=== PATIENT | female | born 1970 | race Caucasian/White ===

== ENCOUNTER 2016-08-29 07:45 | Emergency (ER) | payer OTHER ==
[2016-08-29 07:56] VITALS: BP 127/73
--- NOTE | 2016-08-29 08:20 | UC ---
Respiratory Complaint HPI - HPI Summary HPI Summary: Cough for 6 days; sinus congestion. Cough is frequent and harsh to point that feels as if she can "pass-out". sinus pain/pressure since wknd. no fever. no wheezing. used saline rinse this morning. has had sinus infections in past and feels the same. Has had to use inhaler in past for similar sx. no h/o asthma. - History of Current Complaint Chief Complaint: UCRespiratory Stated Complaint: SINUS,COUGH Time Seen by Provider: 08/29/16 08:13 Hx Last Menstrual Period: 08/15/16 - Allergies/Home Medications Allergies/Adverse Reactions: Allergies Allergy/AdvReac Type Severity Reaction Status Date / Time Penicillins Allergy Intermediate Hives Verified 08/29/16 07:57 PMH/Surg Hx/FS Hx/Imm Hx Previously Healthy: Yes - Surgical History Surgical History: Yes Surgery Procedure, Year, and Place: - Family History Known Family History: Negative: Cardiac Disease, Diabetes, Respiratory Disease Family History: no know family history of early onset cardio-vascular disorders - Social History Alcohol Use: Occasionally Substance Use Type: None Smoking Status (MU): Never Smoked Tobacco - Immunization History Most Recent Influenza Vaccination: Not the season Review of Systems Constitutional: Fatigue Skin: Negative Eyes: Negative ENT: Ear Ache Respiratory: Cough Cardiovascular: Negative Gastrointestinal: Negative Genitourinary: Negative Motor: Negative Neurovascular: Negative Musculoskeletal: Negative Neurological: Negative Psychological: Negative All Other Systems Reviewed And Are Negative: Yes Physical Exam Triage Information Reviewed: Yes Appearance: Well-Appearing, No Pain Distress, Well-Nourished - mild cough. Vital Signs: Initial Vital Signs Temp 98.3 F 08/29/16 07:49 Pulse 70 08/29/16 07:49 Resp 18 08/29/16 07:49 BP 127/73 08/29/16 07:49 Pulse Ox 100 08/29/16 07:49 Vital Signs Reviewed: Yes Eye Exam: Normal ENT: Positive: Hearing grossly normal, Pharynx normal, TMs normal, Other: - + b/ l maxillary and frontal tenderness. Negative: Tonsillar swelling, Tonsillar exudate Dental Exam: Normal Neck exam: Normal Neck: Positive: Supple, Nontender, No Lymphadenopathy Respiratory Exam: Normal Respiratory: Positive: Lungs clear, No respiratory distress, No accessory muscle use, Decreased breath sounds - mild. Negative: Crackles, Rhonchi, Stridor, Wheezing Cardiovascular Exam: Normal Cardiovascular: Positive: RRR, No Murmur, Pulses Normal, Brisk Capillary Refill Abdomen Description: Positive: Nontender, Soft Musculoskeletal Exam: Normal Neurological Exam: Normal Psychological Exam: Normal Skin Exam: Normal UC Diagnostic Evaluation - Laboratory O2 Sat by Pulse Oximetry: 100 Respiratory Course/Dx - Course Course Of Treatment: She has taken zpack in past without difficulty. - Differential Dx/Diagnosis Differential Diagnosis/HQI/PQRI: Bronchitis, Lower Resp Infection, Sinusitis Provider Diagnoses: Sinusitis, mild bronchitis Discharge - Discharge Plan Condition: Stable Disposition: HOME Prescriptions: Albuterol HFA INHALER* [Ventolin HFA Inhaler*] 2 puff INH Q4H PRN #1 mdi PRN Reason: Cough Azithromyxin SKYLER (NF) [Z-Skyler (Zithromax) 250 mg tabs #6] 250 mg PO .ZPAK INSTRUCTIONS #6 tab Benzonatate CAP* [Tessalon CAP*] 100 mg PO TID #30 cap Patient Education Materials: Acute Bronchitis (ED), Sinusitis (ED) Referrals: Delphine Mendez MD [Primary Care Provider] - 4 Days Additional Instructions: Make sure to take a probiotic while on the antibiotic. continue using the saline rinse daily and you can follow it with flonase nasal spray.
== END 2016-08-29 08:31 | disposition home or self-care (01) ==
LOC: UCCORT 07:45
DX: J40 Bronchitis, not specified as acute or chronic (principal); J32.9 Chronic sinusitis, unspecified; Z88.0 Allergy status to penicillin
CPT/HCPCS: 99212; G0463

== ENCOUNTER 2017-06-13 08:13 | Emergency (ER) | payer OTHER ==
[2017-06-13 08:56] VITALS: BP 122/79
--- NOTE | 2017-06-13 09:04 | UC ---
Complaint Female HPI - HPI Summary HPI Summary: 47 yo female c/o 4-5 days urinary discomfort, freq /urg / dysuria. Pain today upper back. No fever / chills. Hx utei approx 2x / year. No rash. - History Of Current Complaint Chief Complaint: UCGU Stated Complaint: URINARY COMPLAINT Time Seen by Provider: 06/13/17 08:36 Hx Obtained From: Patient Hx Last Menstrual Period: early May - Allergies/Home Medications Allergies/Adverse Reactions: Allergies Allergy/AdvReac Type Severity Reaction Status Date / Time Penicillins Allergy Intermediate Hives Verified 08/29/16 07:57 PMH/Surg Hx/FS Hx/Imm Hx Previously Healthy: Yes - see hpi - Surgical History Surgical History: Yes Surgery Procedure, Year, and Place: ,breast biopsy clip - Family History Known Family History: Positive: None Negative: Cardiac Disease, Diabetes, Respiratory Disease Family History: no know family history of early onset cardio-vascular disorders - Social History Alcohol Use: Daily Alcohol Amount: 1 wine Substance Use Type: None Smoking Status (MU): Never Smoked Tobacco - Immunization History Most Recent Influenza Vaccination: Not the season Review of Systems Constitutional: Negative Skin: Negative Eyes: Negative ENT: Negative Respiratory: Negative Cardiovascular: Negative Gastrointestinal: Other - see hpi Genitourinary: Negative Motor: Negative Neurovascular: Negative Musculoskeletal: Negative Neurological: Negative Psychological: Negative Is Patient Immunocompromised?: Yes All Other Systems Reviewed And Are Negative: No Physical Exam Triage Information Reviewed: Yes Appearance: Well-Nourished Vital Signs: Initial Vital Signs Temp 98.8 F 06/13/17 08:51 Pulse 78 06/13/17 08:51 Resp 18 06/13/17 08:51 BP 122/79 06/13/17 08:51 Vital Signs Reviewed: Yes Eye Exam: Normal ENT Exam: Normal Neck exam: Normal Respiratory Exam: Normal Cardiovascular Exam: Normal Abdominal Exam: Normal - tender suprapubic and upper back bilat Musculoskeletal Exam: Normal Neurological Exam: Normal Psychological Exam: Normal Skin Exam: Normal Complaint Female Dx - Course Course Of Treatment: urine dip tr leuk 1+ est. sg 1.020. reivewed with pt. questions as posed answered to the best of my ability. declines pyridium script. rx diflucan request as needed vag yeast infection. f/u pcp per routine - Differential Dx/Diagnosis Provider Diagnoses: uti Discharge - Discharge Plan Condition: Stable Disposition: HOME Prescriptions: Ciprofloxacin HCl [Cipro 500 MG TAB] 500 mg PO BID #14 tab Fluconazole 150 MG (NF) [Diflucan 150 mg (NF)] 150 mg PO DAILY #2 tab Patient Education Materials: Urinary Tract Infection in Women (ED) Referrals: Melanie Thompson MD [Primary Care Provider] -
== END 2017-06-13 09:46 | disposition home or self-care (01) ==
LOC: UCCORT 08:13
DX: N39.0 Urinary tract infection, site not specified (principal); Z88.0 Allergy status to penicillin
CPT/HCPCS: 81003; 87086; 99211; G0463

== ENCOUNTER 2017-09-30 08:11 | Emergency (ER) | payer OTHER ==
[2017-09-30 08:49] VITALS: BP 111/67
--- NOTE | 2017-09-30 08:59 | UC ---
Complaint Female HPI - HPI Summary HPI Summary: dysuria x 4 days + frequency, burning , no fever, no chills, no flank pain - History Of Current Complaint Chief Complaint: UCGU Stated Complaint: URINARY Time Seen by Provider: 09/30/17 08:35 Hx Obtained From: Patient Hx Last Menstrual Period: 09/29/17 Onset/Duration: Gradual Onset, Lasting Days - 3, Still Present Timing: Constant Severity Initially: Moderate Severity Currently: Moderate Pain Intensity: 3 Character: Burning Aggravating Factor(s): Urination Alleviating Factor(s): Nothing Associated Signs And Symptoms: Negative: Fever, Back Pain, Vaginal Bleeding/ Discharge, Vaginal Discharge, Nausea, Vomiting(# Of Episodes =), Genital Swelling, Genital Blisters, Retained Foregin Body (Specify) Related Hx: Similar Episode/Dx as: - UTI - Allergies/Home Medications Allergies/Adverse Reactions: Allergies Allergy/AdvReac Type Severity Reaction Status Date / Time MS Penicillins [Penicillins] Allergy Intermediate Hives Verified 09/30/17 08:43 PMH/Surg Hx/FS Hx/Imm Hx Previously Healthy: Yes - Surgical History Surgical History: Yes Surgery Procedure, Year, and Place: ,breast biopsy clip - Family History Known Family History: Positive: None Negative: Cardiac Disease, Diabetes, Respiratory Disease Family History: no know family history of early onset cardio-vascular disorders - Social History Alcohol Use: Daily Alcohol Amount: 1 wine Substance Use Type: None Smoking Status (MU): Never Smoked Tobacco - Immunization History Most Recent Influenza Vaccination: Not the season Review of Systems Constitutional: Negative Skin: Negative Eyes: Negative ENT: Negative Respiratory: Negative Cardiovascular: Negative Gastrointestinal: Negative Genitourinary: Dysuria, Frequency, Urgency Motor: Negative Is Patient Immunocompromised?: No All Other Systems Reviewed And Are Negative: Yes Physical Exam Triage Information Reviewed: Yes Appearance: Well-Appearing, No Pain Distress, Well-Nourished Vital Signs: Initial Vital Signs Temp 99.3 F 09/30/17 08:44 Pulse 64 09/30/17 08:44 Resp 18 09/30/17 08:44 BP 111/67 09/30/17 08:44 Pulse Ox 100 09/30/17 08:44 Vital Signs Reviewed: Yes Eye Exam: Normal Eyes: Positive: Conjunctiva Clear ENT: Positive: Normal ENT inspection, Hearing grossly normal, Pharynx normal Neck exam: Normal Neck: Positive: Supple, Nontender, No Lymphadenopathy Respiratory: Positive: Chest non-tender, Lungs clear, Normal breath sounds Cardiovascular: Positive: RRR, No Murmur, Pulses Normal Abdomen Description: Positive: Nontender, Soft. Negative: CVA Tenderness (R), CVA Tenderness (L), Distended, Guarding Bowel Sounds: Positive: Present Skin Exam: Normal Complaint Female Dx - Differential Dx/Diagnosis Provider Diagnoses: UTI Discharge - Discharge Plan Condition: Stable Disposition: HOME Prescriptions: Sulfamethox/Trimethoprim DS* [Bactrim DS 800/160 TAB*] 1 tab PO BID #14 tab Patient Education Materials: Urinary Tract Infection in Women (DC) Referrals: Melanie Thompson MD [Primary Care Provider] - If Needed
== END 2017-09-30 09:15 | disposition home or self-care (01) ==
LOC: UCCORT 08:11
DX: N39.0 Urinary tract infection, site not specified (principal)
CPT/HCPCS: 81003; 87077; 87086; 87186; 99212; G0463

== ENCOUNTER 2018-07-31 07:14 | Emergency (ER) | payer OTHER ==
--- OUTSIDE RECORDS SUMMARY | 2018-07-31 07:24 | XMS REPORT ---
:1970 Author Organization [facility] Address [address] [place] [address] Care Team Providers Name Role Phone Rola Calvo Unavailable Unavailable PROBLEMS Type Condition ICD9-CM [id number] Onset Condition SNOMED Code Code Code Dates Status Problem Leiomyoma of D25.9 Active 04114402 uterus, unspecified Problem Family history of Z80.3 Active 112577137 malignant neoplasm of breast Problem Other abnormal and R92.8 Active 228380429 inconclusive findings on diagnostic imaging of breast Problem Other specified N93.8 Active 314388566 abnormal uterine and vaginal bleeding Problem Dysmenorrhea, N94.6 Active 003694373 unspecified Problem Family history of Z80.41 Active 563236766 malignant neoplasm of ovary Problem Family history of Z80.0 Active 917594394 malignant neoplasm of digestive organs Problem 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 70798121 stenosis of cervix uteri Problem 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 Problem Excessive and N92.0 Active 320758969 frequent menstruation with regular cycle Problem Unspecified N83.201 Active [id number] ovarian cyst, right side Problem Excessive and N92.0 Active 790283186 frequent menstruation Problem Inconclusive R92.2 Active 78503373 mammogram ALLERGIES Substance Reaction Event Type Date Status penicillin hives Drug Allergy Jun, Active ENCOUNTERS Encounter Location Date Diagnosis [facility] December, O[place] [id number] [facility] 103 December, OBGYN [place] [id number] [address] Jun, Excessive and frequent O[facility] [address] [place], menstruation with regular [place] [id number] cycle N92.0 ; Leiomyoma of uterus, unspecified D25.9 ; Family history of malignant neoplasm of breast Z80.3 ; Other abnormal and inconclusive findings on diagnostic imaging of breast R92.8 ; Genetic susceptibility to other malignant neoplasm Z15.09 ; Family history of malignant neoplasm of ovary Z80.41 and Family history of malignant neoplasm of digestive organs Z80.0 [facility] 103 Jun, Family history of malignant OBGYN [facility] neoplasm of breast Z80.3 [place], [place] [id number] and Displacement of intrauterine contraceptive device, initial encounter T83.32XA [facility] [address] [place], Apr, Excessive and frequent [facility] [place] [id number] menstruation with regular cycle N92.0 ; Dysmenorrhea, unspecified N94.6 and Stricture and stenosis of cervix uteri N88.2 [facility] 103 Apr, OBGYN [place] [id number] [facility] 103 Apr, Excessive and frequent [facility] menstruation with regular [place], [place] [address] cycle N92.0 ; Stricture and stenosis of cervix uteri N88.2 and Noninflammatory disorder of vagina, unspecified N89.9 [facility] 103 Mar, OBGYN [place], [place] [id number] [facility] 103 Mar, OBG[place] [id number] [facility] 103 Mar, [facility] with regular [place] [id number] cycle N92.0 ; Other abnormal and inconclusive findings on diagnostic imaging of breast R92.8 ; Leiomyoma of uterus, unspecified D25.9 ; Genetic susceptibility to other malignant neoplasm Z15.09 ; Family history of malignant neoplasm of ovary Z80.41 ; Family history of malignant neoplasm of breast Z80.3 and Family history of malignant neoplasm of digestive organs Z80.0 [place] [facility] 103 Feb, Excessive and frequent OBGYN [facility] menstruation with regular [place] [address] cycle N92.0 [place] [facility] 103 Feb, Excessive and frequent OBGYN [facility] menstruation with regular [place] [address] cycle N92.0 [place] [facility] 103 Feb, Excessive and frequent OBGYN [facility] menstruation with regular [place], [place] [address] cycle N92.0 [place] [facility] 103 Feb, Excessive and frequent OBGYN [facility] menstruation with regular [place], [place] [address] cycle N92.0 ; Leiomyoma of uterus, unspecified D25.9 and Other specified abnormal uterine and vaginal bleeding N93.8 [place] [facility] 103 Jan, OBGYN [place], [place] [id number] [place] [facility] 103 Jan, O[place]YN [place] [id number] [place] [facility] 103 Jan, Other abnormal and OBGYN [facility] inconclusive findings on [place], [place] [address] diagnostic imaging of breast R92.8 [place] [facility] 103 Jan, Excessive and frequent OBGYN [facility] menstruation N92.0 [place], [place] [address] [place] [facility] 103 Jan, Excessive and frequent OBGYN [facility] menstruation with regular [place] [address] cycle N92.0 ; Family history of malignant neoplasm of digestive organs Z80.0 ; Family history of malignant neoplasm of ovary Z80.41 ; Family history of malignant neoplasm of breast Z80.3 and Unspecified ovarian cyst, right side N83.201 [place] [facility] 103 Jan, Leiomyoma of uterus, OBGYN [facility] unspecified D25.9 ; Other [place] [id number] specified abnormal uterine and vaginal bleeding N93.8 ; Family history of malignant neoplasm of ovary Z80.41 and Excessive and frequent menstruation with regular cycle N92.0 [place] [facility] 103 December, Inconclusive mammogram [facility] R92.2 [place], [place] [id number] [place] [facility] 103 December, [facility] ([facility] [place], [place] [id number] (routine) without abnormal findings Z01.419 ; Encounter for screening mammogram for malignant neoplasm of breast Z12.31 ; Family history of malignant neoplasm of digestive organs Z80.0 ; Family history of malignant neoplasm of ovary Z80.41 ; Leiomyoma of uterus, unspecified D25.9 ; Excessive and frequent menstruation with regular cycle N92.0 ; Unspecified ovarian cyst, right side N83.201 ; Family history of malignant neoplasm of breast Z80.3 and Dysmenorrhea, unspecified N94.6 [facility] 103 December, Family history of malignant [facility] neoplasm of ovary Z80.41 [place], [place] [address] and Leiomyoma of uterus, unspecified D25.9 [facility] 103 Nov, [place] [id number] [facility] 103 Jun, [place] [id number] [place] [facility] 103 07 Jun, 2017 Family history of malignant [facility] neoplasm of ovary Z80.41 [place], [place] [id number] and Leiomyoma of uterus, unspecified D25.9 [place] [facility] 103 Mar, [facility] neoplasm of ovary Z80.41 [place], [place] [id number] and Leiomyoma of uterus, unspecified D25.9 [place] [facility] 103 Mar, Family history of malignant [facility] neoplasm of ovary Z80.41 ; [place], [place] [id number] Other specified abnormal uterine and vaginal bleeding N93.8 and Leiomyoma of uterus, unspecified D25.9 [facility] 103 24 Nov, 2016 Other abnormal and [facility] inconclusive findings on [place], [place] [id number] diagnostic imaging of breast R92.8 [facility] 103 13 Nov, 2016 [place] [address] [facility] 103 Nov, [facility] ([facility]) [place], [place] [id number] (routine) without abnormal findings Z01.419 ; Encounter for screening mammogram for malignant neoplasm of breast Z12.31 ; Frequency of micturition R35.0 ; Family history of malignant neoplasm of digestive organs Z80.0 ; Family history of malignant neoplasm of ovary Z80.41 and Leiomyoma of uterus, unspecified D25.9 [facility] 103 Nov, Family history of malignant [facility] neoplasm of ovary Z80.41 [place] [id number] [facility] 103 Nov, [facility] ([facility]) [place], [place] [id number] (routine) without abnormal findings Z01.419 ; Encounter for screening mammogram for malignant neoplasm of breast Z12.31 ; Family history of malignant neoplasm of digestive organs Z80.0 ; Family history of malignant neoplasm of ovary Z80.41 ; Dysmenorrhea, unspecified N94.6 and Other specified abnormal uterine and vaginal bleeding N93.8 [facility] 103 Nov, Family history of malignant [facility] neoplasm of ovary Z80.41 [place], [place] [address] [facility] 103 Oct, Encounter for screening [facility] mammogram for malignant [place], [place] [id number] neoplasm of breast Z12.31 [facility] 103 Apr, O[place] [id number] [facility] 103 Jan, Ovarian cyst NOS 620.2 OBGYN [place], [place] [id number] [place] [facility] 103 Jan, FM HX OVARY MALIGNANCY OBGYN [place] [address]36. and Ovarian cyst NOS [place], [place] [id number] 620.2 [place] [facility] 103 December, FM HX OVARY MALIGNANCY [facility] [place] [address] and Ovarian cyst NOS [place], [place] [address] 620.2 [place] [facility] 103 December, OBGYN [place], [place] [address] [place] [facility] 103 Nov, Menometrorrhagia 626.2 OBGYN [place] [address] [facility] 103 Nov, ROUTINE RECEIVABLES SPECIALIST EXAMINATION OBGYN [facility] V72.31 ; PAP SMEAR W/O RECEIVABLES SPECIALIST [place], [place] [id number] EXAM V76.2 and Ovarian cyst NOS 620.2 [facility] 103 Nov, FM HX OVARY MALIGNANCY OBGYN [place] [address] and Ovarian cyst NOS [place], [place] [address] 620.2 [facility] 103 Nov, OBG[place], [place] [id number] [facility] 103 Sep, Mammogram-Abnormal 793.80 OBGYN [place], [place] [address] [place] [facility] 103 May, Inconclusive mammogram OBGYN [facility] 793.82 [place], [place] [id number] [place] [facility] 103 May, FM HX OVARY MALIGNANCY OBGYN [place] [id number] [id number] [place] [facility] 103 May, FM HX OVARY MALIGNANCY OBGYN [place] [id number] [id number] [place] [facility] 103 Apr, OBG[place] [id number] [place] [facility] 103 Apr, OBGYN [place] [address] [place] [facility] 103 Nov, Breast Mass 611.72 OBGYN [place], [place] [address] [place] [facility] 103 Nov, OBGYN [place], [place] [address] [place] [facility] 103 Oct, ROUTINE RECEIVABLES SPECIALIST EXAMINATION OBGYN [facility] V72.31 ; [place], [place] [id number] vulvovaginitis 112.1 ; Dysmenorrhea 625.3 ; FAMILY HX-GI MALIGNANCY V16.0 ; Ovarian cyst NOS 620.2 ; Breast Mass 611.72 ; PAP SMEAR W/O RECEIVABLES SPECIALIST EXAM V76.2 ; FM HX OVARY MALIGNANCY V16.41 and VAGINAL DISCHARGE 623.5 [place] [facility] 103 Oct, FM HX OVARY MALIGNANCY OBGYN [facility] V16.41 [place], [place] [address] [place] [facility] 103 Oct, OBG[place] [id number] [facility] 103 Oct, [place], [place] [id number] [facility] 103 Oct, O[place], [place] [id number] [place] [facility] 103 Oct, Breast Mass 611.72 OBGYN [place] [address] [place] [facility] 103 Jun, OBG[place], [place] [id number] [place] [facility] 103 May, O[place], [place] [id number] [place] [facility] 103 May, FM HX OVARY MALIGNANCY OBGYN [place] 511736.41 [place], [place] [id number] [place] [facility] 103 May, Breast Mass 611.72 and FM OBGYN [facility] HX OVARY MALIGNANCY V16.41 [place], [place] [id number] [place] [facility] 103 May, FM HX OVARY MALIGNANCY OBGYN [facility] V16.41 [place], [place] [id number] [place] [facility] 103 Jan, OBG[place], [place] [id number] [place] [facility] 103 Nov, OBG[place] [id number] [place] [facility] 103 Nov, Ovarian cyst NOS 620.2 [facility]Y [place] [id number] V16.41 [place] [facility] 103 Nov, Ovarian cyst NOS 620.2 and OBGYN [facility] FM HX OVARY MALIGNANCY [place], [place] [address] V16.41 [place] [facility] 103 Oct, O[place] [id number] [place] [facility] 103 Oct, OBG[place], [place] [id number] [place] [facility] 103 Oct, OBGYN [place], [place] [id number] [place] [facility] 103 Sep, OBG[place], [place] [id number] [place] [facility] 103 Sep, ROUTINE RECEIVABLES SPECIALIST EXAMINATION OBGYN [facility] V72.31 ; FM HX OVARY [place], [place] [id number] MALIGNANCY V16.41 ; SCREEN MAMMOGRAM NEC V76.12 and Ovarian cyst NOS 620.2 [place] [facility] 103 Sep, FM HX OVARY MALIGNANCY OBGYN [facility] V16.41 and Ovarian cyst NOS [place], [place] [id number] 620.2 [facility] 103 Mar, FM HX OVARY MALIGNANCY OBGYN [facility] V16.41 ; FAMILY HX-GI [place], [place] [id number] MALIGNANCY V16.0 and Dysmenorrhea 625.3 [facility] 103 Mar, FM HX OVARY MALIGNANCY OBGYN [facility] V16.41 [place], [place] [id number] [facility] 103 Sep, OBGYN [place], [place] [id number] [facility] 103 Sep, ROUTINE RECEIVABLES SPECIALIST EXAMINATION OBGYN [facility] V72.31 ; FM HX OVARY [place], [place] [id number] MALIGNANCY V16.41 ; Candidal vulvovaginitis 112.1 and Dysmenorrhea 625.3 [facility] 103 Sep, FM HX OVARY MALIGNANCY OBG[facility] V16.41 [place], [place] [id number] [facility] 103 Sep, ROUTINE RECEIVABLES SPECIALIST EXAMINATION OBGYN [facility] V72.31 ; FM HX OVARY [place], [place] [id number] MALIGNANCY V16.41 and Menometrorrhagia 626.2 [facility] 103 Sep, FM HX OVARY MALIGNANCY OBGYN [facility] V16.41 and Menometrorrhagia [place], [place] [id number] 626.2 [facility] 103 December, FAMILY HX-GI MALIGNANCY OBGYN [facility] V16.0 ; FM HX OVARY [place], [place] [id number] MALIGNANCY V16.41 ; Dysmenorrhea 625.3 and Menometrorrhagia 626.2 [facility] 103 Oct, OBGYN [place], [place] [id number] [facility] 103 Oct, FAMILY HX-GI MALIGNANCY OBGYN [facility] V16.0 and FM HX OVARY [place], [place] [id number] MALIGNANCY V16.41 [facility] 103 Oct, FM HX OVARY MALIGNANCY OBGYN [facility] V16.41 and Ovarian cyst NOS [place], [place] [id number] 620.2 [place] [facility] 103 Sep, FAMILY HX-GI MALIGNANCY OBGYN [facility] V16.0 and FM HX OVARY [place], [place] [id number] MALIGNANCY V16.41 [place] [facility] 103 Sep, ROUTINE RECEIVABLES SPECIALIST EXAMINATION OBGYN [facility] V72.31 ; FAMILY HX-GI [place], [place] [id number] MALIGNANCY V16.0 and FM HX OVARY MALIGNANCY V16.41 [place] [facility] 103 May, OBGYN [place], [place] [id number] [place] [facility] 103 Jan, OBG[place], [place] [id number] [place] [facility] 103 Jan, Menometrorrhagia 626.2 and OBGYN [facility] VULVAR LESION 624.9 [place], [place] [id number] [place] [facility] 103 Jan, OBG[place], [place] [id number] [place] [facility] 103 Oct, OBGYN [place], [place] [id number] [place] [facility] 103 Oct, Menometrorrhagia 626.2 and OBGYN [facility] FAMILY HX-GI MALIGNANCY [place] [id number] V16.0 [place] [facility] 103 Oct, Menometrorrhagia 626.2 [place]YN [place] [id number] [place] [facility] 103 Oct, Menometrorrhagia 626.2 [place], [place] [id number] [place] [facility] 103 Oct, OBGYN [place], [place] [id number] [place] [facility] 103 Sep, O[place], [place] [id number] [place] [facility] 103 Jun, O[place], [place] [address] [place] [facility] 103 May, Menometrorrhagia 626.2 ; FM OBGYN [facility] HX OVARY MALIGNANCY V16.41 [place], [place] [id number] ; FAMILY HX-GI MALIGNANCY V16.0 and Dysmenorrhea 625.3 [place] [facility] 103 May, Ovarian cyst NOS 620.2 ; FM OBGYN [facility] HX OVARY MALIGNANCY V16.41 [place], [place] [id number] and FAMILY HX-GI MALIGNANCY V16.0 [place] [facility] 103 Apr, ROUTINE RECEIVABLES SPECIALIST EXAMINATION [facility] V72.31 [place], [place] [id number] [place] [facility] 103 Mar, Menometrorrhagia 626.2 and OBGYN [facility] Endometrial polyp 621.0 [place], [place] [id number] [place] [facility] 103 Feb, Menometrorrhagia 626.2 ; [facility] Endometrial polyp 621.0 and [place], [place] [id number] Stenosis of cervix 622.4 [place] [facility] 103 Feb, Menometrorrhagia 626.2 ; OBN [facility] Endometrial polyp 621.0 and [place], [place] [id number] Stenosis of cervix 622.4 [place] [facility] 103 Jan, OBG[place] [id number] [place] [facility] 103 Jan, OBGYN [place], [place] [id number] [place] [facility] 103 December, O[place], [place] [id number] [place] [facility] 103 Nov, OBGYN [place], [place] [id number] [place] [facility] 103 Nov, Menometrorrhagia 626.2 ; OBGYN [facility] Endometrial polyp 621.0 and [place], [place] [id number] Stenosis of cervix 622.4 [place] [facility] 103 Nov, Menometrorrhagia 626.2 ; OBGYN [facility] Stenosis of cervix 622.4 [place], [place] [id number] and Endometrial polyp 621.0 [place] [facility] 103 Oct, Menometrorrhagia 626.2 ; OBGYN [facility] Stenosis of cervix 622.4 [place] [id number] and Endometrial polyp 621.0 [place] [facility] 103 Oct, Menometrorrhagia 626.2 and OBGYN [facility] Stenosis of cervix 622.4 [place], [place] [id number] [place] [facility] 103 Oct, Menometrorrhagia 626.2 and OBGYN [facility] Endometrial polyp 621.0 [place], [place] [id number] [place] [facility] 103 Sep, [place], [place] [id number] [place] [facility] 103 Sep, Menometrorrhagia 626.2 and OBGYN [facility] Stenosis of cervix 622.4 [place], [place] [id number] [place] [facility] 103 Sep, Menometrorrhagia 626.2 OBGYN [place], [place] [id number] [place] [facility] 103 Aug, Menometrorrhagia 626.2 O[place]YN [place], [place] [id number] [place] [facility] 103 Mar, OBG[place], [place] [id number] [place] [facility] 103 Feb, O[place], [place] [id number] [place] [facility] 103 Jan, [place] [id number] [place] [facility] 103 Jan, [place], [place] [id number] [place] [facility] 103 December, OBG[place], [place] [id number] [place] [facility] 103 Nov, OBGYN [place], [place] [id number] [place] [facility] 103 Nov, ROUTINE RECEIVABLES SPECIALIST EXAMINATION OBGYN [facility] V72.31 ; FM HX OVARY [place], [place] [id number] MALIGNANCY V16.41 and FAMILY HX-GI MALIGNANCY V16.0 [place] [facility] 103 Oct, OBGYN [place], [place] [id number] [place] [facility] 103 Sep, OBGYN [place], [place] [id number] [place] [facility] 103 Sep, OBGYN [place], [place] [id number] [place] [facility] 103 Jun, FM HX OVARY MALIGNANCY OBGYN [facility] V16.41 and FAMILY HX-GI [place], [place] [id number] MALIGNANCY V16.0 [place] [facility] 103 Jun, O[place], [place] [id number] [place] [facility] 103 May, FAMILY HX-GI MALIGNANCY OBGYN [facility] V16.0 and FM HX OVARY [place], [place] [id number] MALIGNANCY V16.41 [place] [facility] 103 May, COUNSELING NOS V65.40 [place]YN [place] [id number] [place] [facility] 103 Sep, Well Adult exam V 70.0 ; [facility] RECEIVABLES SPECIALIST EXAMINATION [place] [id number] V72.31 and Menorrhagia 626.2 IMMUNIZATIONS No Known Immunizations SOCIAL HISTORY Never Assessed REASON FOR REFERRAL FUNCTIONAL STATUS PLAN OF CARE Activity Details Follow Up Annual in December w/ US to assess ovaries Reason: VITAL SIGNS Height 64.5 in 2018-07-16 Weight 169 lbs 2018-07-16 BMI 28.56 kg/m2 2018-07-16 Blood pressure systolic 128 mm Hg 2018-07-16 Blood pressure diastolic 84 mm Hg 2018-07-16 MEDICATIONS Medication Instructions Dosage Frequency Start Date End Date Duration Status ibuprofen 800 orally q8 hrs PRN 1 tab(s) Active mg PROCEDURES No Known procedures RESULTS No Results REASON FOR VISIT Post-op/CBE Insurance Providers Pending Sale To [facility] Member Patient Patient Patient Patient Patient Subscriber Subscriber Subscriber Group Insurance Plan Plan Plan Plan ID Relationship Address Phone Name Date of ID Name Date of No Type Insurance Insurance Insurance Coverage to Subscriber Address Phone Name Dates [employer] [phone] [employer] Jacqueline [id number] [phone] [facility] 0150 [phone] Health Now [address] [phone] Health Now Jacqueline [id number] [facility] [address] [place] [address] Health Now [address] [phone] [facility] [place] [id number] [phone] [facility] [address] [place] [address] [employer] 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 Increased colon cancer risk. Surgical History Surgical History Hysteroscopy/Site directed EMB 11/18/07 Surgical History HTA 02/17/08 Surgical History US-guided diagnostic hysteroscopy D&C. 05/13/18 Surgical History US-guided diagnostic hysteroscopy D&C 06/29/2018 Hospitalization History see above
[2018-07-31 07:26] VITALS: BP 114/74
--- NOTE | 2018-07-31 07:37 | UC ---
Throat Pain/Nasal Blake HPI - HPI Summary HPI Summary: sore throat x 5 days + nasal congestion , pnd, bilateral ear pain no cough , no fever, + chills and body aches - History of Current Complaint Chief Complaint: UCGeneralIllness Stated Complaint: SORE THROAT EARS CONGESTION Time Seen by Provider: 07/31/18 07:28 Hx Obtained From: Patient Hx Last Menstrual Period: 07/01/18 ?: No Onset/Duration: Gradual Onset, Lasting Days - 5, Still Present Severity: Moderate Pain Intensity: 7 Cough: None Associated Signs & Symptoms: Positive: Nasal Discharge. Negative: Drooling, Wheezing, Hoarseness, Sinus Discomfort, Fever, Vomiting, Rash - Allergies/Home Medications Allergies/Adverse Reactions: Allergies Allergy/AdvReac Type Severity Reaction Status Date / Time Penicillins Allergy Hives Verified 07/31/18 07:24 Home Medications: Home Medications Fexofenadine (NF) [Maru 180 (NF)] 180 mg PO ONCE 07/31/18 [History Confirmed 07/31/18] PMH/Surg Hx/FS Hx/Imm Hx Previously Healthy: Yes - Surgical History Surgical History: Yes Surgery Procedure, Year, and Place: ,breast biopsy clip - Family History Known Family History: Positive: None Negative: Cardiac Disease, Diabetes, Respiratory Disease Family History: no know family history of early onset cardio-vascular disorders - Social History Alcohol Use: Occasionally Alcohol Amount: 1 wine Substance Use Type: None Smoking Status (MU): Never Smoked Tobacco - Immunization History Most Recent Influenza Vaccination: Not the season Review of Systems All Other Systems Reviewed And Are Negative: Yes Constitutional: Positive: Chills, Fatigue Skin: Positive: Negative Eyes: Positive: Negative ENT: Positive: Sore Throat, Ear Ache, Nasal Discharge Respiratory: Positive: Negative Cardiovascular: Positive: Negative Gastrointestinal: Positive: Negative Is Patient Immunocompromised?: No Physical Exam Triage Information Reviewed: Yes Appearance: Well-Appearing, No Pain Distress, Well-Nourished Vital Signs: Initial Vital Signs Temp 97.8 F 07/31/18 07:23 Pulse 72 07/31/18 07:23 Resp 18 07/31/18 07:23 BP 114/74 07/31/18 07:23 Pulse Ox 100 07/31/18 07:23 Vital Signs Reviewed: Yes Eye Exam: Normal Eyes: Positive: Conjunctiva Clear ENT: Positive: Normal ENT inspection, Hearing grossly normal, Pharyngeal erythema, Nasal drainage, TMs normal. Negative: TM bulging, TM dull, TM red Neck: Positive: Supple, Nontender, No Lymphadenopathy Respiratory: Positive: Chest non-tender, Lungs clear, Normal breath sounds Cardiovascular: Positive: RRR, No Murmur, Pulses Normal Skin Exam: Normal Throat Pain/Nasal Course/Dx - Differential Dx/Diagnosis Provider Diagnosis: Pharyngitis Discharge - Sign-Out/Discharge Documenting (check all that apply): Patient Departure All imaging exams completed and their final reports reviewed: No Studies - Discharge Plan Condition: Stable Disposition: HOME Patient Education Materials: Pharyngitis (ED) Referrals: Melanie Thompson MD [Primary Care Provider] - If Needed Additional Instructions: negative rapid strep viral pharyngitis no need for antibiotics - Billing Disposition and Condition Condition: STABLE Disposition: Home
== END 2018-07-31 07:47 | disposition home or self-care (01) ==
LOC: UCCORT 07:14
DX: J02.9 Acute pharyngitis, unspecified (principal); Z88.0 Allergy status to penicillin
CPT/HCPCS: 87651; 99211; G0463

== ENCOUNTER 2019-10-07 08:16 | Emergency (ER) | payer OTHER ==
--- OUTSIDE RECORDS SUMMARY | 2019-10-07 08:22 | XMS REPORT ---
:1970 Author Organization [facility] Address [address] [place] [address] Care Team Providers Name Role Phone Rola Calvo Unavailable Unavailable PROBLEMS Type Condition ICD9-CM OJR40-EB Onset Condition SNOMED Code Code Code Dates Status Problem Dysmenorrhea, N94.6 Active 868936147 unspecified Problem Family history of Z80.0 Active 580904206 malignant neoplasm of digestive organs Problem Other specified N93.8 Active 249087337 abnormal uterine and vaginal bleeding Problem Leiomyoma of D25.9 Active 94142218 uterus, unspecified Problem Family history of Z80.41 Active 883261889 malignant neoplasm of ovary Problem Unspecified N83.201 Active 24111144273543155 ovarian cyst, right side Problem Family history of Z80.3 Active 389854081 malignant neoplasm of breast Problem Inconclusive R92.2 Active 55681675 mammogram Problem Foreign body in T19.2XXA Active 630068669 vulva and vagina, initial encounter Problem Excessive and N92.0 Active 119760647 frequent menstruation with regular cycle Problem Low back pain M54.5 Active 103809014 Problem Other abnormal and R92.8 Active 372321807 inconclusive findings on diagnostic imaging of breast Problem Excessive and N92.0 Active 173224742 frequent menstruation Problem 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 Problem 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 Problem Unspecified N83.202 Active [id number] ovarian cyst, left side ALLERGIES No Information ENCOUNTERS Encounter Location Date Diagnosis [facility] 103 December, O[place], [place] [id number] [facility] 103 December, [place] [id number] [facility] 103 Sep, [place] [id number] [facility] 103 Sep, [place] [id number] [facility] 103 Sep, Acute vaginitis N76.0 [place] [id number] [facility] 103 Sep, Low back pain M54.5 ; [facility] N76.0 and Foreign [place], [place] [id number] body in vulva and vagina, initial encounter T19.2XXA [facility] 103 Aug, [place] [id number] [facility] Aug, Family history of malignant [facility] neoplasm of breast Z80.3 [place] [id number] [facility] 103 Aug, Unspecified ovarian cyst, [facility] N83.202 ; [place], [place] [id number] Leiomyoma of uterus, unspecified D25.9 and Family history of malignant neoplasm of breast Z80.3 [facility] 103 Aug, Unspecified ovarian cyst, [facility] left side N83.202 and [place], [place] [id number] Leiomyoma of uterus, unspecified D25.9 [facility] 103 May, [place] [id number] [facility] 103 May, Unspecified ovarian cyst, [facility] right side N83.201 ; [place], [place] [id number] Unspecified ovarian cyst, left side N83.202 ; Excessive and frequent menstruation with regular cycle N92.0 and Leiomyoma of uterus, unspecified D25.9 [facility] 103 May, Unspecified ovarian cyst, OBGYN [facility] right side N83.201 ; [place], [place] [id number] Leiomyoma of uterus, unspecified D25.9 and Excessive and frequent menstruation with regular cycle N92.0 [facility] 103 December, [facility] [place], [place] [id number] (routine) with abnormal findings Z01.411 ; Encounter for screening for malignant neoplasm of cervix Z12.4 ; Encounter for screening mammogram for malignant neoplasm of breast Z12.31 ; Excessive and frequent menstruation with regular cycle N92.0 ; Leiomyoma of uterus, unspecified D25.9 ; Family history of malignant neoplasm of breast Z80.3 ; Other abnormal and inconclusive findings on diagnostic imaging of breast R92.8 ; Genetic susceptibility to other malignant neoplasm Z15.09 ; Family history of malignant neoplasm of ovary Z80.41 and Unspecified ovarian cyst, right side N83.201 [facility] 103 December, [facility] neoplasm of ovary Z80.41 [place] [id number] and Leiomyoma of uterus, unspecified D25.9 [facility] 103 Aug, OBGYN [place] [id number] [address] Jun, Excessive and frequent [address] [place], menstruation with regular [place] [id number] cycle N92.0 ; Leiomyoma of uterus, unspecified D25.9 ; Family history of malignant neoplasm of breast Z80.3 ; Other abnormal and inconclusive findings on diagnostic imaging of breast R92.8 ; Genetic susceptibility to other malignant neoplasm Z15.09 ; Family history of malignant neoplasm of ovary Z80.41 and Family history of malignant neoplasm of digestive organs Z80.0 [facility] 103 Jun, [facility] neoplasm of breast Z80.3 [place] [id number] and Displacement of intrauterine contraceptive device, initial encounter T83.32XA Count Includes [facility] [address] Apr, Excessive and frequent Medical [facility] [place] [id number] menstruation with regular cycle N92.0 ; Dysmenorrhea, unspecified N94.6 and Stricture and stenosis of cervix uteri N88.2 [facility] 103 Apr, [place] [id number] [facility] 103 Apr, Excessive and frequent OBGYN [facility] menstruation with regular [place], [place] [id number] cycle N92.0 ; Stricture and stenosis of cervix uteri N88.2 and Noninflammatory disorder of vagina, unspecified N89.9 [facility] 103 Mar, [place] [id number] [facility] 103 Mar, [place] [id number] [facility] 103 Mar, Excessive and frequent OBGYN [facility] menstruation with regular [place], [place] [id number] cycle N92.0 ; Other abnormal and inconclusive findings on diagnostic imaging of breast R92.8 ; Leiomyoma of uterus, unspecified D25.9 ; Genetic susceptibility to other malignant neoplasm Z15.09 ; Family history of malignant neoplasm of ovary Z80.41 ; Family history of malignant neoplasm of breast Z80.3 and Family history of malignant neoplasm of digestive organs Z80.0 [facility] 103 Feb, Excessive and frequent OBGYN [facility] menstruation with regular [place], [place] [id number] cycle N92.0 [facility] 103 Feb, Excessive and frequent OBGYN [facility] menstruation with regular [place], [place] [id number] cycle N92.0 [facility] 103 Feb, Excessive and frequent OBGYN [facility] menstruation with regular [place], [place] [id number] cycle N92.0 [facility] 103 Feb, Excessive and [facility] menstruation with regular [place] [id number] cycle N92.0 ; Leiomyoma of uterus, unspecified D25.9 and Other specified abnormal uterine and vaginal bleeding N93.8 [facility] Jan, [place] [id number] [facility] 103 Jan, [place] [id number] [facility] Jan, Other abnormal and [facility] inconclusive findings on [place] [id number] diagnostic imaging of breast R92.8 [facility] 103 Jan, Excessive and frequent [facility] menstruation N92.0 [place] [id number] [facility] Jan, Excessive and frequent [facility] menstruation with regular [place], [place] [id number] cycle N92.0 ; Family history of malignant neoplasm of digestive organs Z80.0 ; Family history of malignant neoplasm of ovary Z80.41 ; Family history of malignant neoplasm of breast Z80.3 and Unspecified ovarian cyst, right side N83.201 [facility] Jan, Leiomyoma of uterus, [facility] unspecified D25.9 ; Other [place] [id number] specified abnormal uterine and vaginal bleeding N93.8 ; Family history of malignant neoplasm of ovary Z80.41 and Excessive and frequent menstruation with regular cycle N92.0 [facility] 103 December, [facility] R92.2 [place] [id number] [facility] 103 December, [facility] (general) [place], [place] [id number] (routine) without abnormal findings Z01.419 ; Encounter [...] of breast Z80.3 and Dysmenorrhea, unspecified N94.6 [facility] 103 December, Family history of [facility] neoplasm of ovary Z80.41 [place] [id number] and Leiomyoma of uterus, unspecified D25.9 [facility] 103 Nov, [place] [id number] [facility] 103 Jun, [place] [id number] [facility] 103 Jun, Family history of malignant [facility] neoplasm of ovary Z80.41 [place], [place] [id number] and Leiomyoma of uterus, unspecified D25.9 [facility] 103 Mar, [facility] history of malignant [facility] neoplasm of ovary Z80.41 [place], [place] [id number] and Leiomyoma of uterus, unspecified D25.9 [facility] 103 Mar, Family history of malignant [facility] neoplasm of ovary Z80.41 ; [place], [place] [id number] Other specified abnormal uterine and vaginal bleeding N93.8 and Leiomyoma of uterus, unspecified D25.9 [facility] 103 24 Nov, 2016 Other abnormal and [facility] inconclusive findings on [place], [place] [id number] diagnostic imaging of breast R92.8 [facility] 103 13 Nov, 2016 OBGYN [place] [id number] [facility] 103 10 Nov, 2016 [facility] [place], [place] [id number] (routine) without abnormal findings Z01.419 ; Encounter for screening mammogram for malignant neoplasm of breast Z12.31 ; Frequency of micturition R35.0 ; Family history of malignant neoplasm of digestive organs Z80.0 ; Family history of malignant neoplasm of ovary Z80.41 and Leiomyoma of uterus, unspecified D25.9 [facility] 103 Nov, Family history of malignant [facility] neoplasm of ovary Z80.41 [place] [id number] [facility] 103 Nov, [facility] (general) [place], [place] [id number] (routine) without abnormal findings Z01.419 ; Encounter for screening mammogram for malignant neoplasm of breast Z12.31 ; Family history of malignant neoplasm of digestive organs Z80.0 ; Family history of malignant neoplasm of ovary Z80.41 ; Dysmenorrhea, unspecified N94.6 and Other specified abnormal uterine and vaginal bleeding N93.8 [facility] 103 Nov, Family history of malignant [facility] neoplasm of ovary Z80.41 [place] [id number] [facility] Oct, [facility] for [facility]ogram for malignant [place] [id number] neoplasm of breast Z12.31 [facility] 08 Apr, 2015 [place] [id number] [facility] 103 Jan, Ovarian cyst NOS 620.2 [place]BG[place] [id number] [facility] 103 Jan, FM HX OVARY [facility]IGNANCY [facility] V16.41 and Ovarian cyst NOS [place] [id number] 620.2 [facility] 103 December, FM HX OVARY [facility]NANCY [facility] V16.41 and Ovarian cyst NOS [place], [place] [id number] 620.2 [facility] 103 December, [place] [id number] [facility] 103 Nov, Menometrorrhagia 626.2 [place] [id number] [facility] 103 Nov, ROUTINE BENZENE STILL UTILITY OPERATOR EXAMINATION OBGYN [facility] V72.31 ; PAP SMEAR W/O BENZENE STILL UTILITY OPERATOR [place], [place] [id number] EXAM V76.2 and Ovarian cyst NOS 620.2 [facility] 103 Nov, FM HX OVARY MALIGNANCY OBGYN [facility] V16.41 and Ovarian cyst NOS [place], [place] [id number] 620.2 [facility] 103 Nov, OBG[place] [id number] [facility] 103 Sep, Mammogram-Abnormal 793.80 [place] [id number] [facility] 103 May, Inconclusive mammogram OBGYN [facility] 793.82 [place] [id number] [facility] 103 May, FM HX OVARY MALIGNANCY OBGYN [place] [id number] [id number] [facility] 103 May, FM HX OVARY MALIGNANCY OBGYN [address] [id number] [facility] 103 Apr, [place] [id number] [facility] 103 Apr, [place] [id number] [facility] 103 Nov, Breast Mass 611.72 [place] [id number] [facility] 103 Nov, O[place] [id number] [facility] 103 Oct, ROUTINE BENZENE STILL UTILITY OPERATOR EXAMINATION OBGYN [facility] V72.31 ; Candidal [place], [place] [id number] vulvovaginitis 112.1 ; Dysmenorrhea 625.3 ; FAMILY HX-GI MALIGNANCY V16.0 ; Ovarian cyst NOS 620.2 ; Breast Mass 611.72 ; PAP SMEAR W/O BENZENE STILL UTILITY OPERATOR EXAM V76.2 ; FM HX OVARY MALIGNANCY V16.41 and VAGINAL DISCHARGE 623.5 [facility] 103 Oct, FM HX OVARY MALIGNANCY OBGYN [facility] V16.41 [place] [id number] [facility] 103 Oct, [place] [id number] [facility] 103 Oct, [place] [id number] [facility] 103 Oct, [place] [id number] [facility] 103 Oct, Breast Mass 611.72 [place] [id number] [facility] 103 Jun, [place], [place] [id number] [facility] May, [place] [id number] [facility] May, FM HX OVARY MALIGNANCY OBGYN [place] [address] [place] [id number] [facility] 103 May, Breast Mass 611.72 and FM OBGYN [facility] HX OVARY MALIGNANCY V16.41 [place] [id number] [facility] 103 May, FM HX OVARY MALIGNANCY OBN [place] [address] [place] [id number] [facility] 103 Jan, [place] [id number] [facility] 103 Nov, [place] [id number] [facility] 103 Nov, Ovarian cyst NOS 620.2 and OBGYN [facility] FM HX OVARY MALIGNANCY [place], [place] [id number] V16.41 [facility] 103 Nov, Ovarian cyst NOS 620.2 and OBGYN [facility] FM HX OVARY MALIGNANCY [place] [id number] V16.41 [facility] 103 Oct, [place] [id number] [facility] 103 Oct, [place] [id number] [facility] 103 Oct, [place] [id number] [facility] 103 Sep, [place], [place] [id number] [facility] 103 Sep, ROUTINE BENZENE STILL UTILITY OPERATOR EXAMINATION [facility] V72.31 ; FM HX OVARY [place], [place] [id number] MALIGNANCY V16.41 ; SCREEN MAMMOGRAM NEC V76.12 and Ovarian cyst NOS 620.2 [facility] 103 Sep, FM HX OVARY MALIGNANCY OBGYN [facility] V16.41 and Ovarian cyst NOS [place] [id number] 620.2 [facility] 103 Mar, FM HX OVARY MALIGNANCY OBGYN [facility] V16.41 ; FAMILY HX-GI [place], [place] [id number] MALIGNANCY V16.0 and Dysmenorrhea 625.3 [facility] 103 Mar, FM HX OVARY MALIGNANCY OBGYN [facility] V16.41 [place] [id number] [facility] 103 Sep, [place]BG[place] [id number] [facility] 103 Sep, ROUTINE BENZENE STILL UTILITY OPERATOR EXAMINATION OBGYN [facility] V72.31 ; FM HX OVARY [place], [place] [id number] MALIGNANCY V16.41 ; Candidal vulvovaginitis 112.1 and Dysmenorrhea 625.3 [facility] 103 13 Sep, 2011 FM HX OVARY MALIGNANCY OBGYN [facility] V16.41 [place] [id number] [facility] 103 Sep, ROUTINE BENZENE STILL UTILITY OPERATOR EXAMINATION OBGYN [facility] V72.31 ; FM HX OVARY [place], [place] [id number] MALIGNANCY V16.41 and Menometrorrhagia 626.2 [facility] 103 Sep, FM HX OVARY MALIGNANCY OBGYN [facility] V16.41 and Menometrorrhagia [place], [place] [id number] 626.2 [facility] 103 December, FAMILY HX-GI MALIGNANCY OBGYN [facility] V16.0 ; FM HX OVARY [place], [place] [id number] MALIGNANCY V16.41 ; Dysmenorrhea 625.3 and Menometrorrhagia 626.2 [facility] 103 Oct, [place] [id number] [facility] 103 Oct, FAMILY HX-GI MALIGNANCY OBGYN [facility] V16.0 and FM HX OVARY [place], [place] [id number] MALIGNANCY V16.41 [facility] 103 Oct, FM HX OVARY MALIGNANCY OBGYN [facility] V16.41 and Ovarian cyst NOS [place], [place] [id number] 620.2 [facility] 103 Sep, FAMILY HX-GI MALIGNANCY OBGYN [facility] V16.0 and FM HX OVARY [place], [place] [id number] MALIGNANCY V16.41 [facility] 103 Sep, ROUTINE BENZENE STILL UTILITY OPERATOR EXAMINATION OBGYN [place] [address]12822. ; FAMILY HX-GI [place], [place] [id number] MALIGNANCY V16.0 and FM HX OVARY MALIGNANCY V16.41 [facility] 103 May, [place] [id number] [facility] 103 Jan, [place] [id number] [facility] 103 Jan, Menometrorrhagia 626.2 and OBGYN [facility] VULVAR LESION 624.9 [place], [place] [id number] [facility] 103 Jan, [place] [id number] [facility] 103 Oct, [place] [id number] [facility] 103 Oct, Menometrorrhagia 626.2 and OBGYN [facility] FAMILY HX-GI MALIGNANCY [place] [id number] V16.0 [facility] 103 Oct, Menometrorrhagia 626.2 [place] [id number] [facility] 103 Oct, Menometrorrhagia 626.2 [place] [id number] [facility] 103 Oct, [place] [id number] [facility] 103 Sep, [place] [id number] [facility] 103 Jun, O[place], [place] [id number] [facility] 103 May, Menometrorrhagia 626.2 ; FM OBGYN [facility] HX OVARY MALIGNANCY V16.41 [place], [place] [id number] ; FAMILY HX-GI MALIGNANCY V16.0 and Dysmenorrhea 625.3 [facility] 103 May, Ovarian cyst NOS 620.2 ; FM OBGYN [facility] HX OVARY MALIGNANCY V16.41 [place], [place] [id number] and FAMILY HX-GI MALIGNANCY V16.0 [facility] 103 30 Apr, 2008 ROUTINE BENZENE STILL UTILITY OPERATOR EXAMINATION [facility] V72.31 [place] [id number] [facility] 103 11 Mar, 2008 Menometrorrhagia 626.2 and OBGYN [facility] Endometrial polyp 621.0 [place] [id number] [facility] 103 Feb, Menometrorrhagia 626.2 ; OBGYN [facility] Endometrial polyp 621.0 and [place], [place] [id number] Stenosis of cervix 622.4 [facility] 103 Feb, Menometrorrhagia 626.2 ; [facility] Endometrial polyp 621.0 and [place], [place] [id number] Stenosis of cervix 622.4 [facility] 103 Jan, [place] [id number] [facility] 103 Jan, [place] [id number] [facility] 103 December, [place] [id number] [facility] 103 Nov, O[place], [place] [id number] [facility] 103 Nov, Menometrorrhagia 626.2 ; OBGYN [facility] Endometrial polyp 621.0 and [place], [place] [id number] Stenosis of cervix 622.4 [facility] 103 Nov, Menometrorrhagia 626.2 ; OBGYN [facility] Stenosis of cervix 622.4 [place], [place] [id number] and Endometrial polyp 621.0 [facility] 103 Oct, Menometrorrhagia 626.2 ; OBGYN [facility] Stenosis of cervix 622.4 [place], [place] [id number] and Endometrial polyp 621.0 [facility] 103 Oct, Menometrorrhagia 626.2 and OBGYN [facility] Stenosis of cervix 622.4 [place], [place] [id number] [facility] 103 Oct, Menometrorrhagia 626.2 and OBGYN [facility] Endometrial polyp 621.0 [place], [place] [id number] [facility] 103 Sep, [place] [id number] [facility] 103 Sep, Menometrorrhagia 626.2 and OBN [facility] Stenosis of cervix 622.4 [place], [place] [id number] [facility] 103 Sep, Menometrorrhagia 626.2 OBGYN [place] [id number] [facility] 103 Aug, Menometrorrhagia 626.2 [place] [id number] [facility] 103 Mar, [place] [id number] [facility] 103 Feb, [place] [address] [facility] 103 Jan, [place] [id number] [facility] 103 Jan, [place], [place] [id number] [facility] 103 December, [place] [id number] [facility] 103 Nov, [place] [id number] [facility] 103 Nov, ROUTINE BENZENE STILL UTILITY OPERATOR EXAMINATION OBGYN [facility] V72.31 ; FM HX OVARY [place], [place] [id number] MALIGNANCY V16.41 and FAMILY HX-GI MALIGNANCY V16.0 [facility] 103 Oct, [place] [id number] [facility] 103 Sep, O[place] [id number] [facility] 103 Sep, [place] [id number] [facility] 103 Jun, FM HX OVARY MALIGNANCY OBGYN [facility] V16.41 and FAMILY HX-GI [place] [id number] MALIGNANCY V16.0 [facility] 103 Jun, [place] [id number] [facility] 103 May, FAMILY HX-GI MALIGNANCY OBGYN [facility] V16.0 and FM HX OVARY [place], [place] [id number] MALIGNANCY V16.41 [facility] 103 May, COUNSELING NOS V65.40 OBGYN [place] [id number] [facility] 103 Sep, Well Adult exam V 70.0 ; [facility] ROUTINE BENZENE STILL UTILITY OPERATOR EXAMINATION [place] [id number] V72.31 and Menorrhagia 626.2 IMMUNIZATIONS No Known Immunizations SOCIAL HISTORY Never Assessed REASON FOR REFERRAL FUNCTIONAL STATUS PLAN OF CARE VITAL SIGNS MEDICATIONS Medication Instructions Dosage Frequency Start Date End Date Duration Status Flagyl 500 mg orally bid 1 tab(s) 12h 06 Feb, 7 day(s) Active 2020 ibuprofen 800 orally q8 hrs PRN 1 tab(s) Active mg Macrobid orally 2 times a 1 cap(s) 12h 04 Feb, 7 days Active macrocrystals-m day 2020 onohydrate 100 mg Flagyl 500 mg orally bid 1 tab(s) 12h 05 Feb, 7 day(s) Active 2020 PROCEDURES No Known procedures RESULTS No Results REASON FOR VISIT Test results Insurance Providers [facility] Health Member Patient Patient Patient Patient Patient Subscriber Subscriber Subscriber Group Insurance Plan Plan Plan Plan ID Relationship Address Phone Name Date of ID Name Date of No Type Insurance Insurance Insurance Coverage to Subscriber Address Phone Name Dates [employer] [phone] AETENOC Phillips [id number] -[phone] [facility] [place] [phone] Health Now [phone] Health Now Jacqueline [id number] [facility] [address] [phone] Health Now [phone] [employer] Now [place]eline [id number] [facility] [address] [phone] [employer] 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 Increased colon cancer risk. Surgical History Surgical History Hysteroscopy/Site directed EMB 11/18/07 Surgical History HTA 02/17/08 Surgical History US-guided diagnostic hysteroscopy D&C. 05/13/18 Hospitalization History see above
--- OUTSIDE RECORDS SUMMARY | 2019-10-07 08:22 | XMS REPORT ---
:1970 Author Organization [facility] Address [address] [place] [address] Care Team Providers Name Role Phone Jessica Wylie Unavailable Unavailable PROBLEMS Type Condition ICD9-CM IXX51-HC Onset Condition SNOMED Code Code Code Dates Status Problem Dysmenorrhea, N94.6 Active 046450983 unspecified Problem Family history of Z80.0 Active 390842748 malignant neoplasm of digestive organs Problem Other specified N93.8 Active 177923538 abnormal uterine and vaginal bleeding Problem Leiomyoma of D25.9 Active 20694910 uterus, unspecified Problem Family history of Z80.41 Active 946281002 malignant neoplasm of ovary Problem Unspecified N83.201 Active [id number] ovarian cyst, right side Problem Family history of Z80.3 Active 559424364 malignant neoplasm of breast Problem Inconclusive R92.2 Active 53432701 mammogram Problem Foreign body in T19.2XXA Active 901982621 vulva and vagina, initial encounter Problem Excessive and N92.0 Active 989451371 frequent menstruation with regular cycle Problem Low back pain M54.5 Active 253051773 Problem Other abnormal and R92.8 Active 475043436 inconclusive findings on diagnostic imaging of breast Problem Excessive and N92.0 Active 285036122 frequent menstruation Problem 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 103 December, OBG[place], [place] [id number] [facility] 103 December, OBGYN [place], [place] [id number] [facility] 103 Sep, Low back pain M54.5 ; Acute [facility] vaginitis N76.0 and Foreign [place], [place] [address] body in vulva and vagina, initial encounter T19.2XXA [place] [facility] 103 Aug, OBGYN [place], [place] [id number] [facility] 103 Aug, Family history of malignant [facility] neoplasm of breast Z80.3 [place], [place] [id number] [facility] 103 Aug, Unspecified ovarian cyst, OBGYN [facility] left side N83.202 ; [place], [place] [id number] Leiomyoma of uterus, unspecified D25.9 and Family history of malignant neoplasm of breast Z80.3 [facility] 103 Aug, [facility] N[facility].202 and [place], [place] [id number] Leiomyoma of uterus, unspecified D25.9 [facility] 103 May, [place] [id number] [facility] 103 May, Unspecified ovarian cyst, OBGYN [facility] right side N83.201 ; [place], [place] [id number] Unspecified ovarian cyst, left side N83.202 ; Excessive and frequent menstruation with regular cycle N92.0 and Leiomyoma of uterus, unspecified D25.9 [place] [facility] 103 May, Unspecified ovarian cyst, OBGYN [facility] right side N83.201 ; [place], [place] [id number] Leiomyoma of uterus, unspecified D25.9 and Excessive and frequent menstruation with regular cycle N92.0 [facility] 103 December, [facility] [place], [place] [id number] (routine) with abnormal findings Z01.411 ; Encounter [...] and Unspecified ovarian cyst, right side N83.201 [facility] 103 December, Family history of malignant [facility] neoplasm of ovary Z80.41 [place], [place] [id number] and Leiomyoma of uterus, unspecified D25.9 [facility] 103 Aug, OBGYN [place] [id number] [address] Jun, Excessive and frequent [address] [place], menstruation with regular [place] [id number] cycle N92.0 ; Leiomyoma of uterus, unspecified D25.9 ; Family history of malignant neoplasm of breast Z80.3 ; Other abnormal and inconclusive findings on diagnostic imaging of breast R92.8 ; Genetic susceptibility to other malignant neoplasm Z15.09 ; Family history of malignant neoplasm of ovary Z80.41 and Family history of malignant neoplasm of digestive organs Z80.0 [facility] 103 Jun, Family history of malignant [facility] neoplasm of breast Z80.3 [place], [place] [id number] and Displacement of intrauterine contraceptive device, initial encounter T83.32XA [facility] [address] Apr, Excessive and frequent Medical [facility] [place] [id number] menstruation with regular cycle N92.0 ; Dysmenorrhea, unspecified N94.6 and Stricture and stenosis of cervix uteri N88.2 [facility] 103 Apr, OBGYN [place], [place] [id number] [place] [facility] 103 Apr, Excessive and frequent OBGYN [facility] menstruation with regular [place], [place] [id number] cycle N92.0 ; Stricture and stenosis of cervix uteri N88.2 and Noninflammatory disorder of vagina, unspecified N89.9 [place] [facility] 103 Mar, OBGYN [place] [id number] [facility] 103 Mar, OBGYN [place], [place] [id number] [facility] [facility] 103 Mar, Excessive and frequent OBGYN [facility] menstruation with regular [place], [place] [id number] cycle N92.0 ; Other abnormal and inconclusive findings on diagnostic imaging of breast R92.8 ; Leiomyoma of uterus, unspecified D25.9 ; Genetic susceptibility to other malignant neoplasm Z15.09 ; Family history of malignant neoplasm of ovary Z80.41 ; Family history of malignant neoplasm of breast Z80.3 and Family history of malignant neoplasm of digestive organs Z80.0 [place] [facility] 103 Feb, Excessive and frequent OBGYN [facility] menstruation with regular [place], [place] [id number] cycle N92.0 [facility] 103 Feb, Excessive and frequent OBGYN [facility] menstruation with regular [place], [place] [id number] cycle N92.0 [facility] [facility] 103 Feb, Excessive and frequent OBGYN [facility] menstruation with regular [place], [place] [id number] cycle N92.0 [facility] 103 Feb, Excessive and frequent OBGYN [facility] menstruation with regular [place], [place] [id number] cycle N92.0 ; Leiomyoma of uterus, unspecified D25.9 and Other specified abnormal uterine and vaginal bleeding N93.8 [facility] 103 Jan, OBGYN [place] [id number] [facility] 103 Jan, [place] [id number] [facility] 103 15 Jan, 2018 Other abnormal and [facility] inconclusive findings on [place], [place] [id number] diagnostic imaging of breast R92.8 [facility] 103 Jan, Excessive and frequent [facility] menstruation N92.0 [place], [place] [id number] [facility] 103 Jan, Excessive and frequent [facility] menstruation with regular [place], [place] [id number] cycle N92.0 ; Family history of malignant neoplasm of digestive organs Z80.0 ; Family history of malignant neoplasm of ovary Z80.41 ; Family history of malignant neoplasm of breast Z80.3 and Unspecified ovarian cyst, right side N83.201 [facility] 103 Jan, Leiomyoma of uterus, [facility] unspecified D25.9 ; Other [place], [place] [id number] specified abnormal uterine and vaginal bleeding N93.8 ; Family history of malignant neoplasm of ovary Z80.41 and Excessive and frequent menstruation with regular cycle N92.0 [facility] 103 December, Inconclusive mammogram [facility] R92.2 [place], [place] [id number] [facility] 103 December, Encounter for gynecological [facility] examination (general) [place], [place] [id number] (routine) without abnormal findings Z01.419 ; Encounter [...] of breast Z80.3 and Dysmenorrhea, unspecified N94.6 [facility] 103 December, Family history of malignant [facility] neoplasm of ovary Z80.41 [place], [place] [id number] and Leiomyoma of uterus, unspecified D25.9 [facility] 103 Nov, OBGYN [place], [place] [id number] [facility] 103 Jun, [place] [id number] [facility] 103 Jun, Family history of malignant [facility] neoplasm of ovary Z80.41 [place], [place] [id number] and Leiomyoma of uterus, unspecified D25.9 [facility] 103 Mar, Family history of malignant [facility] neoplasm of ovary Z80.41 [place], [place] [id number] and Leiomyoma of uterus, unspecified D25.9 [facility] 103 Mar, Family history of malignant [facility] neoplasm of ovary Z80.41 ; [place], [place] [id number] Other specified abnormal uterine and vaginal bleeding N93.8 and Leiomyoma of uterus, unspecified D25.9 [facility] 103 24 Nov, 2016 Other abnormal and [facility] inconclusive findings on [place] [id number] diagnostic imaging of breast R92.8 [facility] 103 13 Nov, 2016 [place] [id number] [facility] 103 Nov, Encounter for gynecological [facility] examination (general) [place], [place] [id number] (routine) without abnormal findings Z01.419 ; Encounter for screening mammogram for malignant neoplasm of breast Z12.31 ; Frequency of micturition R35.0 ; Family history of malignant neoplasm of digestive organs Z80.0 ; Family history of malignant neoplasm of ovary Z80.41 and Leiomyoma of uterus, unspecified D25.9 [facility] 103 10 Nov, 2016 Family history of malignant [facility] neoplasm of ovary Z80.41 [place], [place] [id number] [place] [facility] 103 Nov, Encounter for gynecological [facility] examination (general) [place], [place] [id number] (routine) without abnormal findings Z01.419 ; Encounter for screening mammogram for malignant neoplasm of breast Z12.31 ; Family history of malignant neoplasm of digestive organs Z80.0 ; Family history of malignant neoplasm of ovary Z80.41 ; Dysmenorrhea, unspecified N94.6 and Other specified abnormal uterine and vaginal bleeding N93.8 [facility] 103 Nov, Family history of malignant [facility] neoplasm of ovary Z80.41 [place], [place] [id number] [facility] [facility] 103 Oct, Encounter for screening [facility] mammogram for malignant [place], [place] [id number] neoplasm of breast Z12.31 [facility] [facility] 103 08 Apr, 2015 OBGYN [place], [place] [id number] [facility] 103 Jan, Ovarian cyst NOS 620.2 OBN [place], [place] [id number] [facility] 103 Jan, FM HX OVARY MALIGNANCY [facility] V16.41 and Ovarian cyst NOS [place], [place] [id number] 620.2 [place] [facility] 103 December, FM HX OVARY MALIGNANCY [facility] V16.41 and Ovarian cyst NOS [place], [place] [id number] 620.2 [place] [facility] 103 December, OBGYN [place] [id number] [facility] 103 Nov, Menometrorrhagia 626.2 OBN [place], [place] [id number] [facility] 103 Nov, ROUTINE ROTARY DRILLER PROSPECTING EXAMINATION OBN [facility] V72.31 ; PAP SMEAR W/O ROTARY DRILLER PROSPECTING [place], [place] [id number] EXAM V76.2 and Ovarian cyst NOS 620.2 [place] [facility] 103 Nov, FM HX OVARY MALIGNANCY OBGYN [facility] V16. and Ovarian cyst NOS [place], [place] [id number] 620.2 [place] 103 Nov, OBGYN [place], [place] [id number] [facility] [facility] 103 Sep, Mammogram-Abnormal 793.80 OBGYN [place], [place] [id number] [facility] [facility] 103 May, Inconclusive mammogram OBGYN [facility] 793.82 [place], [place] [id number] [place] [facility] 103 May, FM HX OVARY MALIGNANCY OBGYN [address] [id number] [place] [facility] 103 May, FM HX OVARY MALIGNANCY OBGYN [address] [id number] [place] [facility] 103 Apr, OBGYN [place] [id number] [facility] 103 Apr, OBGYN [place], [place] [id number] [facility] 103 Nov, Breast Mass 611.72 OBGYN [place], [place] [id number] [facility] 103 Nov, OBGYN [place] [id number] [facility] 103 Oct, ROUTINE ROTARY DRILLER PROSPECTING EXAMINATION OBGYN [facility] V72.31 ; Candidal [place], [place] [address] vulvovaginitis 112.1 ; Dysmenorrhea 625.3 ; FAMILY HX-GI MALIGNANCY V16.0 ; Ovarian cyst NOS 620.2 ; Breast Mass 611.72 ; PAP SMEAR W/O ROTARY DRILLER PROSPECTING EXAM V76.2 ; FM HX OVARY MALIGNANCY V16.41 and VAGINAL DISCHARGE 623.5 [place] [facility] 103 Oct, FM HX OVARY MALIGNANCY OBGYN [place] [address].41 [place], [place] [id number] [facility] [facility] 103 Oct, OBGYN [place] [id number] [facility] 103 Oct, OBGYN [place], [place] [id number] [facility] 103 Oct, OBGYN [place], [place] [id number] [place] [facility] 103 Oct, Breast Mass 611.72 OBGYN [place], [place] [id number] [place] [facility] 103 Jun, [place] [id number] [facility] 103 May, [place] [id number] [facility] [facility] 103 May, FM HX OVARY [place]NANCY [place] [id number] [id number] [place] [facility] 103 May, Breast Mass 611.72 and FM OBGYN [facility] HX OVARY MALIGNANCY [address] [id number] [facility] [facility] 103 May, FM HX OVARY MALIGNANCY OBN [address] [id number] [place] [facility] 103 Jan, OBGYN [place], [place] [id number] [facility] [facility] 103 Nov, OBGYN [place], [place] [id number] [facility] 103 Nov, Ovarian cyst NOS 620.2 and OBGYN [facility] FM HX OVARY MALIGNANCY [place] [id number] [address] [facility] 103 Nov, Ovarian cyst NOS 620.2 and OBGYN [facility] FM HX OVARY MALIGNANCY [place] [id number] 6.41 [place] [facility] 103 Oct, OBGYN [place], [place] [id number] [facility] 103 Oct, OBGYN [place], [place] [id number] [facility] 103 Oct, OBGYN [place], [place] [id number] [facility] 103 Sep, OBGYN [place], [place] [id number] [facility] 103 Sep, ROUTINE ROTARY DRILLER PROSPECTING EXAMINATION OBGYN [facility] V72.31 ; FM HX OVARY [place], [place] [id number] MALIGNANCY V16.41 ; SCREEN MAMMOGRAM NEC V76.12 and Ovarian cyst NOS 620.2 [place] [facility] 103 Sep, FM HX OVARY MALIGNANCY OBGYN [facility] V16.41 and Ovarian cyst NOS [place], [place] [id number] 620.2 [facility] 103 Mar, FM HX OVARY MALIGNANCY OBGYN [facility] V16.41 ; FAMILY HX-GI [place], [place] [id number] MALIGNANCY V16.0 and Dysmenorrhea 625.3 [facility] 103 Mar, FM HX OVARY MALIGNANCY OBGYN [facility] V16.41 [place], [place] [id number] [facility] 103 Sep, OBGYN [place], [place] [id number] [facility] 103 Sep, ROUTINE ROTARY DRILLER PROSPECTING EXAMINATION OBGYN [facility] V72.31 ; FM HX OVARY [place], [place] [id number] MALIGNANCY V16.41 ; Candidal vulvovaginitis 112.1 and Dysmenorrhea 625.3 [place] [facility] 103 Sep, FM HX OVARY MALIGNANCY OBGYN [facility] V16.41 [place], [place] [id number] [facility] 103 Sep, ROUTINE ROTARY DRILLER PROSPECTING EXAMINATION OBGYN [facility] V72.31 ; FM HX OVARY [place], [place] [id number] MALIGNANCY V16.41 and Menometrorrhagia 626.2 [place] [facility] 103 Sep, FM HX OVARY MALIGNANCY OBGYN [facility] V16.41 and Menometrorrhagia [place], [place] [id number] 626.2 [place] [facility] 103 December, FAMILY HX-GI MALIGNANCY OBGYN [facility] V16.0 ; FM HX OVARY [place], [place] [id number] MALIGNANCY V16.41 ; Dysmenorrhea 625.3 and Menometrorrhagia 626.2 [place] [facility] 103 Oct, OBGYN [place], [place] [id number] [place] [facility] 103 Oct, FAMILY HX-GI MALIGNANCY OBGYN [facility] V16.0 and FM HX OVARY [place], [place] [id number] MALIGNANCY V16.41 [place] [facility] 103 Oct, FM HX OVARY MALIGNANCY OBGYN [facility] V16.41 and Ovarian cyst NOS [place], [place] [id number] 620.2 [place] [facility] 103 Sep, FAMILY HX-GI MALIGNANCY OBGYN [facility] V16.0 and FM HX OVARY [place], [place] [id number] MALIGNANCY V16.41 [place] [facility] 103 Sep, ROUTINE ROTARY DRILLER PROSPECTING EXAMINATION OBGYN [facility] V72.31 ; FAMILY HX-GI [place], [place] [id number] MALIGNANCY V16.0 and FM HX OVARY MALIGNANCY V16.41 [place] [facility] 103 May, OBGYN [place], [place] [id number] [place] [facility] 103 Jan, OBGYN [place], [place] [id number] [place] [facility] 103 Jan, Menometrorrhagia 626.2 and OBGYN [facility] VULVAR LESION 624.9 [place], [place] [id number] [place] [facility] 103 Jan, OBGYN [place], [place] [id number] [place] [facility] 103 Oct, OBGYN [place], [place] [id number] [place] [facility] 103 Oct, Menometrorrhagia 626.2 and OBGYN [facility] FAMILY HX-GI MALIGNANCY [place], [place] [id number] V16.0 [place] [facility] 103 Oct, Menometrorrhagia 626.2 OBGYN [place], [place] [id number] [place] [facility] 103 Oct, Menometrorrhagia 626.2 OBGYN [place], [place] [id number] [place] [facility] 103 Oct, OBGYN [place], [place] [id number] [facility] 103 Sep, OBGYN [place], [place] [id number] [facility] 103 Jun, OBGYN [place], [place] [id number] [facility] 103 May, Menometrorrhagia 626.2 ; [facility]ARY MALIGNANCY V16.41 [place], [place] [id number] ; FAMILY HX-GI MALIGNANCY V16.0 and Dysmenorrhea 625.3 [place] [facility] 103 May, Ovarian cyst NOS 620.2 ; FM OBGYN [facility] HX OVARY MALIGNANCY V16.41 [place], [place] [id number] and FAMILY HX-GI MALIGNANCY V16.0 [place] [facility] 103 Apr, ROUTINE ROTARY DRILLER PROSPECTING EXAMINATION OBN [facility] V72.31 [place], [place] [id number] [place] [facility] 103 Mar, Menometrorrhagia 626.2 and OBGYN [facility] Endometrial polyp 621.0 [place], [place] [id number] [place] [facility] 103 Feb, Menometrorrhagia 626.2 ; OBGYN [facility] Endometrial polyp 621.0 and [place], [place] [id number] Stenosis of cervix 622.4 [place] [facility] 103 Feb, Menometrorrhagia 626.2 ; OBGYN [facility] Endometrial polyp 621.0 and [place], [place] [id number] Stenosis of cervix 622.4 [place] [facility] 103 Jan, OBG[place], [place] [id number] [place] [facility] 103 Jan, OBGYN [place], [place] [id number] [place] [facility] 103 December, OBGYN [place], [place] [id number] [place] [facility] 103 Nov, OBGYN [place], [place] [id number] [place] [facility] 103 Nov, Menometrorrhagia 626.2 ; OBGYN [facility] Endometrial polyp 621.0 and [place], [place] [id number] Stenosis of cervix 622.4 [place] [facility] 103 Nov, Menometrorrhagia 626.2 ; OBGYN [facility] Stenosis of cervix 622.4 [place], [place] [id number] and Endometrial polyp 621.0 [place] [facility] 103 Oct, Menometrorrhagia 626.2 ; OBGYN [facility] Stenosis of cervix 622.4 [place], [place] [id number] and Endometrial polyp 621.0 [place] [facility] 103 Oct, Menometrorrhagia 626.2 and OBGYN [facility] Stenosis of cervix 622.4 [place], [place] [id number] [place] [facility] 103 Oct, Menometrorrhagia 626.2 and OBGYN [facility] Endometrial polyp 621.0 [place], [place] [id number] [place] [facility] 103 Sep, OBG[place], [place] [id number] [place] [facility] 103 Sep, Menometrorrhagia 626.2 and OBGYN [facility] Stenosis of cervix 622.4 [place], [place] [id number] [place] [facility] 103 Sep, Menometrorrhagia 626.2 OBGYN [place], [place] [id number] [place] [facility] 103 Aug, Menometrorrhagia 626.2 OBGYN [place], [place] [id number] [place] [facility] 103 Mar, OBGYN [place], [place] [id number] [place] [facility] 103 Feb, OBGYN [place], [place] [id number] [place] [facility] 103 Jan, OBGYN [place], [place] [id number] [place] [facility] 103 Jan, OBGYN [place], [place] [id number] [place] [facility] 103 December, OBGYN [place], [place] [id number] [place] [facility] 103 Nov, OBGYN [place], [place] [id number] [place] [facility] 103 Nov, ROUTINE ROTARY DRILLER PROSPECTING EXAMINATION OBGYN [facility] V72.31 ; FM HX OVARY [place], [place] [id number] MALIGNANCY V16.41 and FAMILY HX-GI MALIGNANCY V16.0 [place] [facility] 103 Oct, OBG[place], [place] [id number] [place] [facility] 103 Sep, O[place], [place] [id number] [place] [facility] 103 Sep, OBGYN [place] [id number] [place] [facility] 103 09 Jun, 2006 FM HX OVARY MALIGNANCY OBGYN [facility] V16.41 and FAMILY HX-GI [place], [place] [id number] MALIGNANCY V16.0 [place] [facility] Jun, OBGYN [place], [place] [id number] [place] [facility] May, FAMILY HX-GI MALIGNANCY OBGYN [facility] V16.0 and FM HX OVARY [place], [place] [id number] MALIGNANCY V16.41 [facility] May, COUNSELING NOS [place]65.40 [place] [id number] [facility] 103 Sep, Well Adult exam V 70.0 ; [facility] ROUTINE ROTARY DRILLER PROSPECTING EXAMINATION [place], [place] [id number] V72.31 and Menorrhagia 626.2 IMMUNIZATIONS No Known Immunizations SOCIAL HISTORY Never Assessed REASON FOR REFERRAL FUNCTIONAL STATUS PLAN OF CARE Activity Details Follow Up As scheduled Reason: Pending Test URINALYSIS Pending Test Urine Culture Pending Test AFFIRM VAGINITIS PANEL VITAL SIGNS Temperature 99.6 degrees Fahrenheit 2019-09-21 Height 64 in 2019-09-21 Weight 174 lbs 2019-09-21 BMI 29.86 kg/m2 2019-09-21 Blood pressure systolic 120 mm Hg 2019-09-21 Blood pressure diastolic 80 mm Hg 2019-09-21 MEDICATIONS Medication Instructions Dosage Frequency Start Date End Date Duration Status ibuprofen 800 orally q8 hrs PRN 1 tab(s) Active mg Macrobid orally 2 times a 1 cap(s) 12h Sep, 7 days Active macrocrystals-m day 2019 onohydrate 100 mg PROCEDURES Procedure Date Ordered Result Body Site REMOVE VAGINAL FOREIGN BODY Sep 21, 2019 URINE-NO MICRO Sep 21, 2019 RESULTS Name Result Date Reference Range Urine dip Glucose blood protein Nitrite + Leuko 1+ Urobilinogen Keytone Bilirubin pH REASON FOR VISIT Possible infection - may need ABX. Foul discharge X 5 days & lower back pain Insurance Providers [facility] Health Member Patient Patient Patient Patient Patient Subscriber Subscriber Subscriber Group Insurance Plan Plan Plan Plan ID Relationship Address Phone Name Date of ID Name Date of No Type Insurance Insurance Insurance Coverage to Subscriber Address Phone Name Dates [employer] [phone] [employer] malaika Phillips [phone] [place] [phone] [employer] 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 Increased colon cancer risk. Surgical History Surgical History Hysteroscopy/Site directed EMB 11/18/07 Surgical History HTA 02/17/08 Surgical History US-guided diagnostic hysteroscopy D&C. 05/13/18 Hospitalization History see above
--- OUTSIDE RECORDS SUMMARY | 2019-10-07 08:22 | XMS REPORT ---
:1970 Author Name sound, ultra Care Team Providers Name Role Phone sound, ultra Unavailable Unavailable PROBLEMS Type Condition ICD9-CM VJP97-AP Onset Condition SNOMED Code Code Code Dates Status Problem Dysmenorrhea, N94.6 Active 024122548 unspecified Problem Family history of Z80.0 Active 100081990 malignant neoplasm of digestive organs Problem Other specified N93.8 Active 344234206 abnormal uterine and vaginal bleeding Problem Other abnormal and R92.8 Active 600353102 inconclusive findings on diagnostic imaging of breast Problem Unspecified N83.201 Active [id number] ovarian cyst, right side Problem Family history of Z80.3 Active 978032046 malignant neoplasm of breast Problem 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 77064023 stenosis of cervix uteri Problem Leiomyoma of D25.9 Active 43019731 uterus, unspecified Problem Unspecified N83.202 Active [id number] ovarian cyst, left side Problem Family history of Z80.41 Active 686606187 malignant neoplasm of ovary Problem Excessive and N92.0 Active 143313732 frequent menstruation with regular cycle Problem Inconclusive R92.2 Active 04545847 mammogram Problem Excessive and N92.0 Active 785243169 frequent menstruation Problem 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 ALLERGIES No Information ENCOUNTERS Encounter Location Date Diagnosis [facility] December, [place] [id number] [facility] December, [place] [id number] [facility] Aug, [place] [id number] [facility] Aug, Unspecified ovarian cyst, OBGYN [facility] left side N83.202 ; [place], [place] [id number] Leiomyoma of uterus, unspecified D25.9 and Family history of malignant neoplasm of breast Z80.3 [facility] 103 Aug, Unspecified ovarian cyst, OBGYN [facility] left side N83.202 and [place], [place] [id number] Leiomyoma of uterus, unspecified D25.9 [facility] 103 May, [place] [id number] [facility] 103 May, Unspecified ovarian cyst, OBGYN [facility] right side N83.201 ; [place], [place] [id number] Unspecified ovarian cyst, left side N83.202 ; Excessive and frequent menstruation with regular cycle N92.0 and Leiomyoma of uterus, unspecified D25.9 [facility] 103 May, Unspecified ovarian cyst, OBGYN [facility] right side N83.201 ; [place], [place] [id number] Leiomyoma of uterus, unspecified D25.9 and Excessive and frequent menstruation with regular cycle N92.0 [facility] 103 December, Encounter for gynecological [facility] examination (general) [place], [place] [id number] (routine) with abnormal findings Z01.411 ; Encounter [...] and Unspecified ovarian cyst, right side N83.201 [facility] 103 December, Family history of malignant [facility] neoplasm of ovary Z80.41 [place] [id number] and Leiomyoma of uterus, unspecified D25.9 [facility] Aug, [place] [id number] [facility] Jun, Excessive and frequent OBGYN [facility] [address] [place], menstruation with regular [place] [id number] cycle N92.0 ; Leiomyoma of uterus, unspecified D25.9 ; Family history of malignant neoplasm of breast Z80.3 ; Other abnormal and inconclusive findings on diagnostic imaging of breast R92.8 ; Genetic susceptibility to other malignant neoplasm Z15.09 ; Family history of malignant neoplasm of ovary Z80.41 and Family history of malignant neoplasm of digestive organs Z80.0 [facility] Jun, Family history of malignant [facility] neoplasm of breast Z80.3 [place], [place] [id number] and Displacement of intrauterine contraceptive device, initial encounter T83.32XA [facility] [address] Apr, Excessive and frequent Medical Center [place] [id number] menstruation with regular cycle N92.0 ; Dysmenorrhea, unspecified N94.6 and Stricture and stenosis of cervix uteri N88.2 [facility] Apr, [place] [id number] [facility] Apr, Excessive and frequent [facility] menstruation with regular [place], [place] [id number] cycle N92.0 ; Stricture and stenosis of cervix uteri N88.2 and Noninflammatory disorder of vagina, unspecified N89.9 [facility] 103 Mar, [place] [id number] [facility] Mar, [place] [id number] [facility] 103 Mar, Excessive and frequent [facility] menstruation with regular [place], [place] [id number] cycle N92.0 ; Other abnormal and inconclusive findings on diagnostic imaging of breast R92.8 ; Leiomyoma of uterus, unspecified D25.9 ; Genetic susceptibility to other malignant neoplasm Z15.09 ; Family history of malignant neoplasm of ovary Z80.41 ; Family history of malignant neoplasm of breast Z80.3 and Family history of malignant neoplasm of digestive organs Z80.0 [place] [facility] Feb, Excessive and frequent OBGYN [facility] menstruation with regular [place], [place] [id number] cycle N92.0 [facility] 103 Feb, Excessive and frequent OBGYN [facility] menstruation with regular [place], [place] [id number] cycle N92.0 [facility] Feb, Excessive and frequent OBGYN [facility] menstruation with regular [place], [place] [id number] cycle N92.0 [place] [facility] Feb, Excessive and frequent OBGYN [facility] menstruation with regular [place], [place] [id number] cycle N92.0 ; Leiomyoma of uterus, unspecified D25.9 and Other specified abnormal uterine and vaginal bleeding N93.8 [place] [facility] Jan, [place] [id number] [facility] Jan, [place] [id number] [facility] Jan, Other abnormal and OBGYN [facility] inconclusive findings on [place], [place] [id number] diagnostic imaging of breast R92.8 [place] Jan, Excessive and frequent OBGYN [facility] menstruation N92.0 [place], [place] [id number] [place] [facility] Jan, Excessive and frequent OBGYN [facility] menstruation with regular [place], [place] [id number] cycle N92.0 ; Family history of malignant neoplasm of digestive organs Z80.0 ; Family history of malignant neoplasm of ovary Z80.41 ; Family history of malignant neoplasm of breast Z80.3 and Unspecified ovarian cyst, right side N83.201 [facility] Jan, Leiomyoma of uterus, [facility] unspecified D25.9 ; Other [place], [place] [id number] specified abnormal uterine and vaginal bleeding N93.8 ; Family history of malignant neoplasm of ovary Z80.41 and Excessive and frequent menstruation with regular cycle N92.0 [place] [facility] December, Inconclusive mammogram [facility] R92.2 [place], [place] [id number] [facility] 103 December, Encounter for gynecological [facility] examination (general) [place], [place] [id number] (routine) without abnormal findings Z01.419 ; Encounter [...] of breast Z80.3 and Dysmenorrhea, unspecified N94.6 [facility] 103 December, Family history of malignant [facility] neoplasm of ovary Z80.41 [place], [place] [id number] and Leiomyoma of uterus, unspecified D25.9 [facility] 103 Nov, [place] [id number] [facility] Jun, [place] [id number] [place] [facility] Jun, Family history of malignant [facility] neoplasm of ovary Z80.41 [place], [place] [id number] and Leiomyoma of uterus, unspecified D25.9 [facility] Mar, Family history of malignant [facility] neoplasm of ovary Z80.41 [place], [place] [id number] and Leiomyoma of uterus, unspecified D25.9 [facility] 103 Mar, Family history of malignant [facility] neoplasm of ovary Z80.41 ; [place], [place] [id number] Other specified abnormal uterine and vaginal bleeding N93.8 and Leiomyoma of uterus, unspecified D25.9 [facility] 103 Nov, Other abnormal and [facility] inconclusive findings on [place], [place] [id number] diagnostic imaging of breast R92.8 [facility] 103 13 Nov, 2016 [place] [id number] [facility] 103 Nov, Encounter for gynecological [facility] examination (general) [place], [place] [id number] (routine) without abnormal findings Z01.419 ; Encounter for screening mammogram for malignant neoplasm of breast Z12.31 ; Frequency of micturition R35.0 ; Family history of malignant neoplasm of digestive organs Z80.0 ; Family history of malignant neoplasm of ovary Z80.41 and Leiomyoma of uterus, unspecified D25.9 [facility] 103 Nov, Family history of malignant [facility] neoplasm of ovary Z80.41 [place], [place] [id number] [facility] 103 Nov, [facility] [place], [place] [id number] (routine) without abnormal findings Z01.419 ; Encounter for screening mammogram for malignant neoplasm of breast Z12.31 ; Family history of malignant neoplasm of digestive organs Z80.0 ; Family history of malignant neoplasm of ovary Z80.41 ; Dysmenorrhea, unspecified N94.6 and Other specified abnormal uterine and vaginal bleeding N93.8 [facility] 103 Nov, Family history of malignant [facility] neoplasm of ovary Z80.41 [place], [place] [id number] [facility] Oct, [facility] for malignant [place] [id number] neoplasm of breast Z12.31 [place] [facility] Apr, [place] [id number] [facility] Jan, Ovarian cyst NOS 620.2 OBN [place] [id number] [facility] [facility] Jan, FM HX OVARY MALIGNANCY OBGYN [facility] V16.41 and Ovarian cyst NOS [place], [place] [id number] 620.2 [place] [facility] 103 December, FM HX OVARY MALIGNANCY OBN [place] [address] and Ovarian cyst NOS [place], [place] [id number] 620.2 [place] [facility] December, [place] [id number] [facility] [facility] 103 Nov, Menometrorrhagia 626.2 [place] [id number] [place] [facility] 103 Nov, 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 and Ovarian cyst NOS [place], [place] [id number] 620.2 [place] [facility] 103 Nov, [place] [id number] [facility] [facility] 103 Sep, Mammogram-Abnormal 793.80 [place] [id number] [place] [facility] 103 May, Inconclusive mammogram OBGYN [facility] 793.82 [place], [place] [id number] [facility] [facility] May, FM HX OVARY MALIGNANCY OBGYN [place] 296366.41 [place], [place] [id number] [place] [facility] May, FM HX OVARY MALIGNANCY OBGYN [place] [id number] [id number] [place] [facility] Apr, [place] [id number] [facility] [facility] Apr, [place] [id number] [facility] [facility] 103 Nov, Breast Mass 611.72 [place] [id number] [place] [facility] 103 Nov, [place] [id number] [facility] Oct, 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 EXAMINATION [facility] V72.31 ; Candidal [place], [place] [id number] vulvovaginitis 112.1 ; Dysmenorrhea 625.3 ; FAMILY HX-GI MALIGNANCY V16.0 ; Ovarian cyst NOS 620.2 ; Breast Mass 611.72 ; PAP SMEAR W/O WATERPROOF COATING MACHINE TENDER EXAM V76.2 ; FM HX OVARY MALIGNANCY V16.41 and VAGINAL DISCHARGE 623.5 [place] [facility] 103 Oct, FM HX OVARY MALIGNANCY OBGYN [address] [id number] [place] [facility] Oct, [place] [id number] [facility] Oct, [place] [id number] [facility] Oct, [place] [id number] [facility] [facility] 103 Oct, Breast Mass 611.72 [place] [id number] [facility] [facility] Jun, [place] [id number] [facility] May, [place] [id number] [facility] May, FM HX OVARY MALIGNANCY OBGYN [facility] V16.41 [place], [place] [id number] [facility] [facility] 103 May, Breast Mass 611.72 and FM OBGYN [facility] HX OVARY MALIGNANCY V16.41 [place], [place] [id number] [place] [facility] May, FM HX OVARY MALIGNANCY OBGYN [facility] V16.41 [place], [place] [id number] [place] [facility] Jan, [place] [id number] [facility] [facility] Nov, [place] [id number] [facility] [facility] 103 Nov, Ovarian cyst NOS 620.2 and OBGYN [facility] HX OVARY MALIGNANCY [place], [place] [id number] V16.41 [place] [facility] 103 Nov, Ovarian cyst NOS 620.2 and OBGYN [facility] HX OVARY MALIGNANCY [place], [place] [id number] V16.41 [place] [facility] 103 Oct, [place] [id number] [place] [facility] Oct, [place] [id number] [facility] [facility] Oct, [place] [id number] [facility] [facility] Sep, [place] [id number] [place] [facility] 103 Sep, 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 EXAMINATION OBGYN [facility] V72.31 ; FM HX OVARY [place], [place] [id number] MALIGNANCY V16.41 ; SCREEN MAMMOGRAM NEC V76.12 and Ovarian cyst NOS 620.2 [facility] 18 Sep, 2012 FM HX OVARY MALIGNANCY OBGYN [facility] V16.41 and Ovarian cyst NOS [place], [place] [id number] 620.2 [facility] 103 Mar, FM HX OVARY MALIGNANCY OBGYN [facility] V16.41 ; FAMILY HX-GI [place], [place] [id number] MALIGNANCY V16.0 and Dysmenorrhea 625.3 [facility] 103 Mar, FM HX OVARY MALIGNANCY OBGYN [facility] V16.41 [place], [place] [id number] [facility] 103 Sep, [place] [id number] [facility] Sep, 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 EXAMINATION OBGYN [facility] V72.31 ; FM HX OVARY [place], [place] [id number] MALIGNANCY V16.41 ; Candidal vulvovaginitis 112.1 and Dysmenorrhea 625.3 [facility] 103 Sep, FM HX OVARY MALIGNANCY OBGYN [facility] V16.41 [place], [place] [id number] [facility] 103 Sep, 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3 and Menometrorrhagia 626.2 [place] [facility] Oct, [place] [id number] [place] [facility] 103 Oct, FAMILY HX-GI MALIGNANCY OBGYN [facility] V16.0 and FM HX OVARY [place], [place] [id number] MALIGNANCY V16.41 [place] [facility] 103 Oct, FM HX OVARY MALIGNANCY OBGYN [facility] V16.41 and Ovarian cyst NOS [place], [place] [id number] 620.2 [place] [facility] 103 Sep, FAMILY HX-GI MALIGNANCY OBGYN [facility] V16.0 and FM HX OVARY [place], [place] [id number] MALIGNANCY V16.41 [place] [facility] 103 Sep, 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 EXAMINATION OBN [facility] V72.31 ; FAMILY HX-GI [place], [place] [id number] MALIGNANCY V16.0 and FM HX OVARY MALIGNANCY V16.41 [place] [facility] 103 May, [place] [id number] [place] [facility] Jan, [place] [id number] [place] [facility] 103 Jan, Menometrorrhagia 626.2 and OBGYN [facility] VULVAR LESION 624.9 [place], [place] [id number] [place] [facility] Jan, [place] [id number] [place] [facility] 103 Oct, [place] [id number] [place] [facility] 103 Oct, Menometrorrhagia 626.2 and OBGYN [facility] FAMILY HX-GI MALIGNANCY [place], [place] [id number] V16.0 [place] [facility] 103 Oct, Menometrorrhagia 626.2 [place] [id number] [place] [facility] 103 Oct, Menometrorrhagia 626.2 [place] [id number] [facility] 103 Oct, [place], [place] [id number] [facility] 103 Sep, [place] [id number] [facility] 103 Jun, [place] [id number] [facility] 103 May, Menometrorrhagia 626.2 ; FM OBGYN [facility] HX OVARY MALIGNANCY V16.41 [place], [place] [id number] ; FAMILY HX-GI MALIGNANCY V16.0 and Dysmenorrhea 625.3 [place] [facility] 103 May, Ovarian cyst NOS 620.2 ; FM OBGYN [facility] HX OVARY MALIGNANCY V16.41 [place], [place] [id number] and FAMILY HX-GI MALIGNANCY V16.0 [place] [facility] 103 Apr, 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 EXAMINATION OBGYN [facility] V72.31 [place], [place] [id number] [facility] 103 Mar, Menometrorrhagia 626.2 and OBGYN [facility] Endometrial polyp 621.0 [place], [place] [id number] [facility] 103 Feb, Menometrorrhagia 626.2 ; OBGYN [facility] Endometrial polyp 621.0 and [place], [place] [id number] Stenosis of cervix 622.4 [facility] 103 Feb, Menometrorrhagia 626.2 ; OBGYN [facility] Endometrial polyp 621.0 and [place], [place] [id number] Stenosis of cervix 622.4 [facility] Jan, [place] [id number] [facility] 103 Jan, [place] [id number] [place] [facility] 103 December, [place] [id number] [place] [facility] Nov, [place] [id number] [place] [facility] 103 Nov, Menometrorrhagia 626.2 ; OBGYN [facility] Endometrial polyp 621.0 and [place], [place] [id number] Stenosis of cervix 622.4 [place] [facility] 103 Nov, Menometrorrhagia 626.2 ; OBGYN [facility] Stenosis of cervix 622.4 [place], [place] [id number] and Endometrial polyp 621.0 [place] [facility] 103 Oct, Menometrorrhagia 626.2 ; OBGYN [facility] Stenosis of cervix 622.4 [place], [place] [id number] and Endometrial polyp 621.0 [place] [facility] 103 Oct, Menometrorrhagia 626.2 and OBGYN [facility] Stenosis of cervix 622.4 [place], [place] [id number] [place] [facility] 103 Oct, Menometrorrhagia 626.2 and OBGYN [facility] Endometrial polyp 621.0 [place], [place] [id number] [place] [facility] Sep, [place] [id number] [place] [facility] 103 Sep, Menometrorrhagia 626.2 and OBGYN [facility] Stenosis of cervix 622.4 [place], [place] [id number] [place] [facility] 103 Sep, Menometrorrhagia 626.2 [place] [id number] [place] [facility] 103 Aug, Menometrorrhagia 626.2 [place] [id number] [place] [facility] Mar, [place] [id number] [place] [facility] Feb, [place] [id number] [place] [facility] 103 Jan, [place] [id number] [place] [facility] 103 Jan, [place] [id number] [place] [facility] December, [place] [id number] [place] [facility] Nov, [place] [id number] [place] [facility] 103 Nov, 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 EXAMINATION OBGYN [facility] V72.31 ; FM HX OVARY [place], [place] [id number] MALIGNANCY V16.41 and FAMILY HX-GI MALIGNANCY V16.0 [place] [facility] 103 Oct, [place] [id number] [place] [facility] Sep, [place] [id number] [place] [facility] Sep, [place] [id number] [place] [facility] 103 Jun, FM HX OVARY MALIGNANCY OBGYN [facility] V16.41 and FAMILY HX-GI [place] [id number] MALIGNANCY V16.0 [place] [facility] 103 Jun, [place] [id number] [place] [facility] 103 May, FAMILY HX-GI MALIGNANCY OBGYN [facility] V16.0 and FM HX OVARY [place], [place] [id number] MALIGNANCY V16.41 [place] [facility] 103 May, COUNSELING NOS V65.40 [place] [id number] [facility] 103 09 Sep, 2005 Well Adult exam V 70.0 ; OBGYN [facility] 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 EXAMINATION [place], [place] [id number] V72.31 and Menorrhagia 626.2 IMMUNIZATIONS No Known Immunizations SOCIAL HISTORY Never Assessed REASON FOR REFERRAL FUNCTIONAL STATUS PLAN OF CARE VITAL SIGNS MEDICATIONS Unknown Medications PROCEDURES Procedure Date Ordered Result Body Site TRANSVAGINAL US, NON-OB May 20, 2019 RESULTS Name Result Date Reference Range Ultrasound : Pelvis REASON FOR VISIT pelvic US Insurance Providers [facility] Member Patient Patient Patient Patient Patient Subscriber Subscriber Subscriber Group Insurance Plan Plan Plan Plan ID Relationship Address Phone Name Date of ID Name Date of No Type Insurance Insurance Insurance Coverage to Subscriber Address Phone Name Dates [employer] [phone] [employer] self Jacqueline [id number] 1 [phone] [place] [phone] Health Now [phone] Health Now Jacqueline [id number] [facility] [phone] [employer] 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 Increased colon cancer risk. Surgical History Surgical History Hysteroscopy/Site directed E[facility] 11/18/07 Surgical History HTA 02/17/08 Surgical History US-guided diagnostic hysteroscopy D&C. 05/13/18 Hospitalization History see above
--- OUTSIDE RECORDS SUMMARY | 2019-10-07 08:22 | XMS REPORT ---
:1970 Author Name sound, ultra Care Team Providers Name Role Phone sound, ultra Unavailable Unavailable PROBLEMS Type Condition ICD9-CM DQU66-CA Onset Condition SNOMED Code Code Code Dates Status Problem Dysmenorrhea, N94.6 Active 189410886 unspecified Problem Family history of Z80.0 Active 357991831 malignant neoplasm of digestive organs Problem Other specified N93.8 Active 710090649 abnormal uterine and vaginal bleeding Problem Other abnormal and R92.8 Active 414968706 inconclusive findings on diagnostic imaging of breast Problem Unspecified N83.201 Active [id number] ovarian cyst, right side Problem Family history of Z80.3 Active 935964679 malignant neoplasm of breast Problem 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 43761723 stenosis of cervix uteri Problem Leiomyoma of D25.9 Active 46297990 uterus, unspecified Problem Unspecified N83.202 Active [id number] ovarian cyst, left side Problem Family history of Z80.41 Active 437869365 malignant neoplasm of ovary Problem Excessive and N92.0 Active 548228311 frequent menstruation with regular cycle Problem Inconclusive R92.2 Active 25588054 mammogram Problem Excessive and N92.0 Active 163313866 frequent menstruation Problem 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 ALLERGIES No Information ENCOUNTERS Encounter Location Date Diagnosis [facility] December, [place] [id number] [facility] 103 December, [place] [id number] [facility] 103 Aug, [place] [id number] [facility] 103 Aug, Family history of malignant [facility] neoplasm of breast Z80.3 [place] [id number] [facility] 103 Aug, Unspecified ovarian cyst, OBGYN [facility] left side N83.202 ; [place], [place] [id number] Leiomyoma of uterus, unspecified D25.9 and Family history of malignant neoplasm of breast Z80.3 [facility] 103 Aug, [facility] N83.202 and [place] [id number] Leiomyoma of uterus, unspecified D25.9 [facility] 103 May, [place] [id number] [facility] 103 May, Unspecified ovarian cyst, OBGYN [facility] right side N83.201 ; [place], [place] [id number] Unspecified ovarian cyst, left side N83.202 ; Excessive and frequent menstruation with regular cycle N92.0 and Leiomyoma of uterus, unspecified D25.9 [facility] 103 May, Unspecified ovarian cyst, OBGYN [facility] right side N83.201 ; [place], [place] [id number] Leiomyoma of uterus, unspecified D25.9 and Excessive and frequent menstruation with regular cycle N92.0 [facility] 103 December, Encounter for gynecological [facility] examination (general) [place], [place] [id number] (routine) with abnormal findings Z01.411 ; Encounter [...] and Unspecified ovarian cyst, right side N83.201 [facility] 103 December, Family history of malignant [facility] neoplasm of ovary Z80.41 [place] [id number] and Leiomyoma of uterus, unspecified D25.9 [facility] 103 Aug, [place]BG[place] [id number] [address] Jun, Excessive and frequent [address] [place], menstruation with regular [place] [id number] cycle N92.0 ; Leiomyoma of uterus, unspecified D25.9 ; Family history of malignant neoplasm of breast Z80.3 ; Other abnormal and inconclusive findings on diagnostic imaging of breast R92.8 ; Genetic susceptibility to other malignant neoplasm Z15.09 ; Family history of malignant neoplasm of ovary Z80.41 and Family history of malignant neoplasm of digestive organs Z80.0 [facility] 103 Jun, Family history of malignant [facility] neoplasm of breast Z80.3 [place], [place] [id number] and Displacement of intrauterine contraceptive device, initial encounter T83.32XA [facility] [address] Apr, Excessive and frequent Medical Center [place] [id number] menstruation with regular cycle N92.0 ; Dysmenorrhea, unspecified N94.6 and Stricture and stenosis of cervix uteri N88.2 [facility] 103 Apr, OBGYN [place] [id number] [facility] 103 Apr, [facility] with regular [place] [id number] cycle N92.0 ; Stricture and stenosis of cervix uteri N88.2 and Noninflammatory disorder of vagina, unspecified N89.9 [facility] Mar, OBGYN [place], [place] [id number] [facility] 103 Mar, OBGYN [place] [id number] [facility] 103 Mar, Excessive and frequent OBGYN [facility] [address] menstruation with regular [place], [place] [id number] cycle N92.0 ; Other abnormal and inconclusive findings on diagnostic imaging of breast R92.8 ; Leiomyoma of uterus, unspecified D25.9 ; Genetic susceptibility to other malignant neoplasm Z15.09 ; Family history of malignant neoplasm of ovary Z80.41 ; Family history of malignant neoplasm of breast Z80.3 and Family history of malignant neoplasm of digestive organs Z80.0 [place] [facility] 103 Feb, Excessive and frequent OBGYN [facility] menstruation with regular [place], [place] [id number] cycle N92.0 [place] 103 Feb, Excessive and frequent OBGYN [facility] menstruation with regular [place], [place] [id number] cycle N92.0 [place] [facility] 103 Feb, Excessive and frequent OBGYN [facility] menstruation with regular [place], [place] [id number] cycle N92.0 [facility] 103 Feb, Excessive and frequent OBGYN [facility] menstruation with regular [place], [place] [id number] cycle N92.0 ; Leiomyoma of uterus, unspecified D25.9 and Other specified abnormal uterine and vaginal bleeding N93.8 [place] [facility] 103 Jan, [place]BGYN [place] [id number] [facility] 103 Jan, O[place] [id number] [facility] 103 Jan, Other abnormal and OBGYN [facility] inconclusive findings on [place], [place] [id number] diagnostic imaging of breast R92.8 [place] [facility] 103 Jan, Excessive and frequent OBGYN [facility] menstruation N92.0 [place], [place] [id number] [facility] [facility] 103 Jan, Excessive and frequent OBGYN [address] menstruation with regular [place], [place] [id number] cycle N92.0 ; Family history of malignant neoplasm of digestive organs Z80.0 ; Family history of malignant neoplasm of ovary Z80.41 ; Family history of malignant neoplasm of breast Z80.3 and Unspecified ovarian cyst, right side N83.201 [facility] 103 Jan, Leiomyoma of uterus, [facility] unspecified D25.9 ; Other [place], [place] [id number] specified abnormal uterine and vaginal bleeding N93.8 ; Family history of malignant neoplasm of ovary Z80.41 and Excessive and frequent menstruation with regular cycle N92.0 [facility] 103 December, Inconclusive mammogram [facility] R92.2 [place], [place] [id number] [facility] 103 December, Encounter for gynecological [facility] examination (general) [place], [place] [id number] (routine) without abnormal findings Z01.419 ; Encounter [...] of breast Z80.3 and Dysmenorrhea, unspecified N94.6 [facility] 103 December, Family history of malignant [facility] neoplasm of ovary Z80.41 [place], [place] [id number] and Leiomyoma of uterus, unspecified D25.9 [facility] 103 Nov, [place] [id number] [facility] 103 Jun, [place] [id number] [facility] 103 Jun, Family history of malignant [facility] neoplasm of ovary Z80.41 [place], [place] [id number] and Leiomyoma of uterus, unspecified D25.9 [facility] 103 Mar, Family history of malignant [facility] neoplasm of ovary Z80.41 [place], [place] [id number] and Leiomyoma of uterus, unspecified D25.9 [facility] 103 Mar, Family history of malignant [facility] neoplasm of ovary Z80.41 ; [place], [place] [id number] Other specified abnormal uterine and vaginal bleeding N93.8 and Leiomyoma of uterus, unspecified D25.9 [facility] 103 Nov, Other abnormal and [facility] inconclusive findings on [place] [id number] diagnostic imaging of breast R92.8 [facility] 103 Nov, [place] [id number] [facility] 103 Nov, [facility] (general) [place] [id number] (routine) without abnormal findings Z01.419 ; Encounter for screening mammogram for malignant neoplasm of breast Z12.31 ; Frequency of micturition R35.0 ; Family history of malignant neoplasm of digestive organs Z80.0 ; Family history of malignant neoplasm of ovary Z80.41 and Leiomyoma of uterus, unspecified D25.9 [facility] 103 Nov, Family history of malignant [facility] neoplasm of ovary Z80.41 [place] [id number] [facility] 103 Nov, Encounter for gynecological [facility] examination (general) [place], [place] [id number] (routine) without abnormal findings Z01.419 ; Encounter for screening mammogram for malignant neoplasm of breast Z12.31 ; Family history of malignant neoplasm of digestive organs Z80.0 ; Family history of malignant neoplasm of ovary Z80.41 ; Dysmenorrhea, unspecified N94.6 and Other specified abnormal uterine and vaginal bleeding N93.8 [facility] 103 Nov, Family history of malignant [facility] neoplasm of ovary Z80.41 [place] [id number] [facility] 17 Oct, 2015 Encounter for screening [facility] mammogram for malignant [place] [id number] neoplasm of breast Z12.31 [place] [facility] 103 08 Apr, 2015 OBG[place] [id number] [place] [facility] 103 Jan, Ovarian cyst NOS 620.2 OBN [place], [place] [id number] [facility] [facility] 103 Jan, FM HX OVARY MALIGNANCY [facility] V16.41 and Ovarian cyst NOS [place] [id number] [address] [facility] 103 December, FM HX OVARY MALIGNANCY [facility] V16.41 and Ovarian cyst NOS [place] [id number] 620.2 [place] [facility] 103 December, [place] [id number] [facility] 103 Nov, Menometrorrhagia 626.2 [place] [id number] [facility] [facility] 103 Nov, ROUTINE POLICE RESERVES COMMANDER EXAMINATION [facility] V72.31 ; PAP SMEAR W/O POLICE RESERVES COMMANDER [place] [id number] EXAM V76.2 and Ovarian cyst NOS 620.2 [place] [facility] 103 Nov, FM HX OVARY MALIGNANCY OBN [facility] V16.41 and Ovarian cyst NOS [place], [place] [id number] 620.2 [facility] 103 Nov, [place] [id number] [facility] 103 Sep, Mammogram-Abnormal 793.80 [place] [id number] [facility] 103 May, Inconclusive mammogram OBN [facility] 793.82 [place] [id number] [place] [facility] May, FM HX OVARY MALIGNANCY OBGYN [place] [address] [place] [id number] [facility] 103 May, FM HX OVARY MALIGNANCY OBGYN [place] [id number] [id number] [place] [facility] 103 Apr, [place] [id number] [facility] 103 Apr, [place] [id number] [facility] 103 Nov, Breast Mass 611.72 [place] [id number] [facility] 103 Nov, [place] [id number] [facility] 103 Oct, ROUTINE POLICE RESERVES COMMANDER EXAMINATION [facility] V72.31 ; Candidal [place], [place] [id number] vulvovaginitis 112.1 ; Dysmenorrhea 625.3 ; FAMILY HX-GI MALIGNANCY V16.0 ; Ovarian cyst NOS 620.2 ; Breast Mass 611.72 ; PAP SMEAR W/O POLICE RESERVES COMMANDER EXAM V76.2 ; FM HX OVARY MALIGNANCY V16.41 and VAGINAL DISCHARGE 623.5 [place] [facility] 103 Oct, FM HX OVARY MALIGNANCY OBGYN [place] [address] [place] [id number] [facility] 103 Oct, [place] [id number] [facility] 103 Oct, [place] [id number] [facility] 103 Oct, [place] [id number] [facility] 103 Oct, Breast Mass 611.72 [place] [id number] [facility] 103 Jun, [place] [id number] [facility] 103 May, [place] [id number] [facility] 103 May, FM HX OVARY MALIGNANCY OBGYN [place] [address] [place] [id number] [facility] [facility] 103 May, Breast Mass 611.72 and FM OBGYN [facility] HX OVARY MALIGNANCY V16.[address] [place] [address] [id number] [place] [facility] 103 May, FM HX OVARY MALIGNANCY OBGYN [place] [address] [place] [id number] [facility] 103 Jan, [place] [id number] [facility] 103 Nov, [place] [id number] [facility] 103 Nov, Ovarian cyst NOS 620.2 and OBGYN [facility] HX OVARY MALIGNANCY [place], [place] [id number] V16.41 [facility] 103 Nov, Ovarian cyst NOS 620.2 and OBGYN [facility] HX OVARY MALIGNANCY [place], [place] [id number] V16.41 [facility] 103 Oct, [place] [id number] [facility] 103 Oct, [place] [id number] [facility] 103 Oct, O[place] [id number] [facility] 103 Sep, [place] [id number] [facility] 103 Sep, ROUTINE POLICE RESERVES COMMANDER EXAMINATION OBGYN [facility] V72.31 ; FM HX OVARY [place], [place] [id number] MALIGNANCY V16.41 ; SCREEN MAMMOGRAM NEC V76.12 and Ovarian cyst NOS 620.2 [place] [facility] 103 Sep, FM HX OVARY MALIGNANCY OBGYN [facility] V16.41 and Ovarian cyst NOS [place], [place] [id number] 620.2 [facility] 103 Mar, FM HX OVARY MALIGNANCY OBGYN [facility] V16.41 ; FAMILY HX-GI [place], [place] [id number] MALIGNANCY V16.0 and Dysmenorrhea 625.3 [facility] 103 Mar, FM HX OVARY MALIGNANCY OBGYN [facility] V16.41 [place], [place] [id number] [facility] 103 Sep, [place] [id number] [facility] 103 Sep, ROUTINE POLICE RESERVES COMMANDER EXAMINATION OBGYN [facility] V72.31 ; FM HX OVARY [place], [place] [id number] MALIGNANCY V16.41 ; Candidal vulvovaginitis 112.1 and Dysmenorrhea 625.3 [facility] 103 Sep, FM HX OVARY MALIGNANCY OBGYN [facility] V16.41 [place] [id number] [facility] Sep, ROUTINE POLICE RESERVES COMMANDER EXAMINATION OBGYN [facility] V72.31 ; FM HX OVARY [place], [place] [id number] MALIGNANCY V16.41 and Menometrorrhagia 626.2 [place] [facility] 103 Sep, FM HX OVARY MALIGNANCY OBGYN [facility] V16.41 and Menometrorrhagia [place], [place] [id number] 626.2 [place] [facility] 103 December, FAMILY HX-GI MALIGNANCY OBGYN [facility] V16.0 ; FM HX OVARY [place], [place] [id number] MALIGNANCY V16.41 ; Dysmenorrhea 625.3 and Menometrorrhagia 626.2 [facility] 103 Oct, [place] [id number] [facility] 103 Oct, FAMILY HX-GI MALIGNANCY OBGYN [facility] V16.0 and FM HX OVARY [place], [place] [id number] MALIGNANCY V16.41 [facility] 103 Oct, FM HX OVARY MALIGNANCY OBGYN [facility] V16.41 and Ovarian cyst NOS [place], [place] [id number] 620.2 [place] [facility] 103 Sep, FAMILY HX-GI MALIGNANCY OBGYN [facility] V16.0 and FM HX OVARY [place], [place] [id number] MALIGNANCY V16.41 [place] [facility] 103 Sep, ROUTINE POLICE RESERVES COMMANDER EXAMINATION OBGYN [facility] V72.31 ; FAMILY HX-GI [place], [place] [id number] MALIGNANCY V16.0 and FM HX OVARY MALIGNANCY V16.41 [place] [facility] 103 May, [place] [id number] [facility] 103 Jan, [place] [id number] [facility] [facility] 103 Jan, Menometrorrhagia 626.2 and OBGYN [facility] VULVAR LESION 624.9 [place], [place] [id number] [facility] 103 Jan, [place] [id number] [facility] 103 Oct, [place] [id number] [facility] 103 Oct, Menometrorrhagia 626.2 and OBGYN [facility] FAMILY HX-GI MALIGNANCY [place], [place] [id number] V16.0 [facility] 103 Oct, Menometrorrhagia 626.2 [place] [id number] [facility] [facility] 103 Oct, Menometrorrhagia 626.2 [place] [id number] [facility] [facility] 103 Oct, [place] [id number] [facility] 103 Sep, [place] [id number] [facility] 103 Jun, [place] [id number] [facility] 103 May, Menometrorrhagia 626.2 ; [facility] HX OVARY MALIGNANCY V16.41 [place], [place] [id number] ; FAMILY HX-GI MALIGNANCY V16.0 and Dysmenorrhea 625.3 [place] [facility] 103 May, Ovarian cyst NOS 620.2 ; [facility] HX OVARY MALIGNANCY V16.41 [place], [place] [id number] and FAMILY HX-GI MALIGNANCY V16.0 [place] [facility] 103 Apr, ROUTINE POLICE RESERVES COMMANDER EXAMINATION [facility] V72.31 [place], [place] [id number] [facility] 103 Mar, Menometrorrhagia 626.2 and OBGYN [facility] Endometrial polyp 621.0 [place] [id number] [facility] 103 Feb, Menometrorrhagia 626.2 ; [facility] Endometrial polyp 621.0 and [place] [id number] Stenosis of cervix 622.4 [place] [facility] 103 Feb, Menometrorrhagia 626.2 ; [facility] Endometrial polyp 621.0 and [place], [place] [id number] Stenosis of cervix 622.4 [facility] 103 Jan, [place] [id number] [place] [facility] 103 Jan, [place] [id number] [facility] [facility] 103 December, O[place] [id number] [facility] 103 Nov, [place] [id number] [facility] 103 Nov, Menometrorrhagia 626.2 ; OBGYN [facility] Endometrial polyp 621.0 and [place], [place] [id number] Stenosis of cervix 622.4 [place] [facility] 103 Nov, Menometrorrhagia 626.2 ; OBGYN [facility] Stenosis of cervix 622.4 [place], [place] [id number] and Endometrial polyp 621.0 [place] [facility] 103 Oct, Menometrorrhagia 626.2 ; OBGYN [facility] Stenosis of cervix 622.4 [place], [place] [id number] and Endometrial polyp 621.0 [place] [facility] 103 Oct, Menometrorrhagia 626.2 and OBGYN [facility] Stenosis of cervix 622.4 [place] [id number] [facility] 103 Oct, Menometrorrhagia 626.2 and OBGYN [facility] Endometrial polyp 621.0 [place], [place] [id number] [facility] 103 Sep, [place] [id number] [facility] 103 Sep, Menometrorrhagia 626.2 and OBGYN [facility] Stenosis of cervix 622.4 [place], [place] [id number] [facility] 103 Sep, Menometrorrhagia 626.2 [place] [id number] [facility] 103 Aug, Menometrorrhagia 626.2 [place] [id number] [facility] 103 Mar, [place] [id number] [facility] 103 Feb, [place] [id number] [facility] 103 Jan, [place] [id number] [facility] 103 Jan, [place] [id number] [facility] 103 December, [place] [id number] [facility] 103 Nov, [place] [id number] [facility] 103 Nov, ROUTINE POLICE RESERVES COMMANDER EXAMINATION OBGYN [facility] V72.31 ; FM HX OVARY [place], [place] [id number] MALIGNANCY V16.41 and FAMILY HX-GI MALIGNANCY V16.0 [facility] [facility] 103 Oct, [place] [id number] [facility] 103 Sep, [place] [id number] [facility] 103 Sep, [place] [id number] [facility] 103 Jun, FM HX OVARY MALIGNANCY OBGYN [facility] V16.41 and FAMILY HX-GI [place] [id number] MALIGNANCY V16.0 [facility] [facility] 103 Jun, [place] [id number] [facility] 103 May, FAMILY HX-GI MALIGNANCY OBGYN [facility] V16.0 and FM HX OVARY [place], [place] [id number] MALIGNANCY V16.41 [facility] 103 May, COUNSELING NOS V65.40 OBGYN [place] [id number] [facility] 103 Sep, Well Adult exam V 70.0 ; OBGYN [facility] ROUTINE POLICE RESERVES COMMANDER EXAMINATION [place], [place] [id number] V72.31 and Menorrhagia 626.2 IMMUNIZATIONS No Known Immunizations SOCIAL HISTORY Never Assessed REASON FOR REFERRAL FUNCTIONAL STATUS PLAN OF CARE VITAL SIGNS MEDICATIONS Unknown Medications PROCEDURES Procedure Date Ordered Result Body Site TRANSVAGINAL US, NON-OB Aug 31, 2019 RESULTS Name Result Date Reference Range Ultrasound : Pelvis REASON FOR VISIT Insurance Providers [facility] Member Patient Patient Patient Patient Patient Subscriber Subscriber Subscriber Group Insurance Plan Plan Plan Plan ID Relationship Address Phone Name Date of ID Name Date of No Type Insurance Insurance Insurance Coverage to Subscriber Address Phone Name Dates Health Now [phone] Health Now [place] [id number] [facility] [phone] Health Now [phone] Health Now [place] [id number] [facility] [phone] [employer] [phone] [employer] self [place] [phone] [place] [phone] [employer] 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 Increased colon cancer risk. Surgical History Surgical History Hysteroscopy/Site directed EMB 11/18/07 Surgical History HTA 02/17/08 Surgical History US-guided diagnostic hysteroscopy D&C. 05/13/18 Hospitalization History see above
--- OUTSIDE RECORDS SUMMARY | 2019-10-07 08:22 | XMS REPORT ---
:1970 Author Organization [facility] Address [address] [place] [address] Care Team Providers Name Role Phone Rola Calvo Unavailable Unavailable PROBLEMS Type Condition ICD9-CM CIB47-ST Onset Condition SNOMED Code Code Code Dates Status Problem Dysmenorrhea, N94.6 Active 391554031 unspecified Problem Family history of Z80.0 Active 651114114 malignant neoplasm of digestive organs Problem Other specified N93.8 Active 685443266 abnormal uterine and vaginal bleeding Problem Other abnormal and R92.8 Active 434725385 inconclusive findings on diagnostic imaging of breast Problem Unspecified N83.201 Active [id number] ovarian cyst, right side Problem Family history of Z80.3 Active 872854098 malignant neoplasm of breast Problem 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 98786092 stenosis of cervix uteri Problem Leiomyoma of D25.9 Active 87866402 uterus, unspecified Problem Unspecified N83.202 Active [id number] ovarian cyst, left side Problem Family history of Z80.41 Active 393119415 malignant neoplasm of ovary Problem Excessive and N92.0 Active 630093871 frequent menstruation with regular cycle Problem Inconclusive R92.2 Active 99203060 mammogram Problem Excessive and N92.0 Active 799269584 frequent menstruation Problem 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 103 Aug, [place] [id number] [facility] 103 Aug, Family history of malignant [facility] neoplasm of breast Z80.3 [place] [id number] [facility] 103 Aug, Unspecified ovarian cyst, OBGYN [facility] left side N83.202 ; [place], [place] [id number] Leiomyoma of uterus, unspecified D25.9 and Family history of malignant neoplasm of breast Z80.3 [facility] 103 Aug, [facility] N[facility].202 and [place] [id number] Leiomyoma of uterus, unspecified D25.9 [facility] 103 May, [place] [id number] [facility] 103 May, [facility] N83.201 ; [place], [place] [id number] Unspecified ovarian cyst, left side N83.202 ; Excessive and frequent menstruation with regular cycle N92.0 and Leiomyoma of uterus, unspecified D25.9 [facility] 103 May, [facility]specified [facility], [facility] N83.201 ; [place], [place] [id number] Leiomyoma of uterus, unspecified D25.9 and Excessive and frequent menstruation with regular cycle N92.0 [facility] 103 December, [facility] [place], [place] [id number] (routine) with abnormal findings Z01.411 ; Encounter [...] and Unspecified ovarian cyst, right side N83.201 [facility] 103 December, Family history of malignant [facility] neoplasm of ovary Z80.41 [place] [id number] and Leiomyoma of uterus, unspecified D25.9 [facility] 103 Aug, OBGYN [place] [id number] [address] Jun, Excessive and frequent OBGYN [facility] [address] [place], menstruation with regular [place] [id number] cycle N92.0 ; Leiomyoma of uterus, unspecified D25.9 ; Family history of malignant neoplasm of breast Z80.3 ; Other abnormal and inconclusive findings on diagnostic imaging of breast R92.8 ; Genetic susceptibility to other malignant neoplasm Z15.09 ; Family history of malignant neoplasm of ovary Z80.41 and Family history of malignant neoplasm of digestive organs Z80.0 [facility] 103 Jun, Family history of malignant [facility] neoplasm of breast Z80.3 [place], [place] [id number] and Displacement of intrauterine contraceptive device, initial encounter T83.32XA [facility] [address] Apr, Excessive and frequent Medical Center [place] [id number] menstruation with regular cycle N92.0 ; Dysmenorrhea, unspecified N94.6 and Stricture and stenosis of cervix uteri N88.2 [facility] 103 Apr, OBG[place] [id number] [facility] 103 Apr, Excessive and [facility]ation with regular [place] [id number] cycle N92.0 ; Stricture and stenosis of cervix uteri N88.2 and Noninflammatory disorder of vagina, unspecified N89.9 [facility] 103 Mar, OBGYN [place], [place] [id number] [facility] 103 Mar, OBGYN [place], [place] [id number] [facility] 103 Mar, Excessive and frequent OBGYN [facility] menstruation with regular [place], [place] [id number] cycle N92.0 ; Other abnormal and inconclusive findings on diagnostic imaging of breast R92.8 ; Leiomyoma of uterus, unspecified D25.9 ; Genetic susceptibility to other malignant neoplasm Z15.09 ; Family history of malignant neoplasm of ovary Z80.41 ; Family history of malignant neoplasm of breast Z80.3 and Family history of malignant neoplasm of digestive organs Z80.0 [facility] 103 Feb, Excessive and frequent OBGYN [facility] menstruation with regular [place], [place] [id number] cycle N92.0 [facility] 103 Feb, Excessive and frequent OBGYN [facility] menstruation with regular [place], [place] [id number] cycle N92.0 [facility] 103 Feb, Excessive and frequent OBGYN [facility] menstruation with regular [place], [place] [id number] cycle N92.0 [facility] 103 Feb, Excessive and frequent OBGYN [facility] menstruation with regular [place], [place] [id number] cycle N92.0 ; Leiomyoma of uterus, unspecified D25.9 and Other specified abnormal uterine and vaginal bleeding N93.8 [facility] 103 Jan, OBGYN [place], [place] [id number] [facility] 103 Jan, [place]BGYN [place], [place] [id number] [facility] 103 Jan, Other abnormal and OBGYN [facility] inconclusive findings on [place], [place] [id number] diagnostic imaging of breast R92.8 [facility] 103 Jan, Excessive and frequent OBGYN [facility] menstruation N92.0 [place] [id number] [facility] 103 Jan, Excessive and frequent [facility] menstruation with regular [place], [place] [id number] cycle N92.0 ; Family history of malignant neoplasm of digestive organs Z80.0 ; Family history of malignant neoplasm of ovary Z80.41 ; Family history of malignant neoplasm of breast Z80.3 and Unspecified ovarian cyst, right side N83.201 [facility] Jan, Leiomyoma of uterus, [facility] unspecified D25.9 ; Other [place], [place] [id number] specified abnormal uterine and vaginal bleeding N93.8 ; Family history of malignant neoplasm of ovary Z80.41 and Excessive and frequent menstruation with regular cycle N92.0 [facility] 103 December, Inconclusive mammogram [facility] R92.2 [place] [id number] [facility] 103 December, Encounter for gynecological [facility] examination (general) [place], [place] [id number] (routine) without abnormal findings Z01.419 ; Encounter [...] of breast Z80.3 and Dysmenorrhea, unspecified N94.6 [facility] 103 December, Family history of malignant [facility] neoplasm of ovary Z80.41 [place], [place] [id number] and Leiomyoma of uterus, unspecified D25.9 [facility] 103 Nov, [place], [place] [id number] [facility] 103 Jun, [place] [id number] [facility] 103 Jun, Family history of malignant [facility] neoplasm of ovary Z80.41 [place], [place] [id number] and Leiomyoma of uterus, unspecified D25.9 [facility] 103 Mar, Family history of malignant [facility] neoplasm of ovary Z80.41 [place], [place] [id number] and Leiomyoma of uterus, unspecified D25.9 [facility] 103 Mar, Family history of malignant [facility] neoplasm of ovary Z80.41 ; [place], [place] [id number] Other specified abnormal uterine and vaginal bleeding N93.8 and Leiomyoma of uterus, unspecified D25.9 [facility] 103 Nov, Other abnormal and [facility] inconclusive findings on [place], [place] [id number] diagnostic imaging of breast R92.8 [facility] 103 13 Nov, 2016 OBGYN [place], [place] [id number] [facility] 103 Nov, Encounter for gynecological [facility] examination (general) [place], [place] [id number] (routine) without abnormal findings Z01.419 ; Encounter for screening mammogram for malignant neoplasm of breast Z12.31 ; Frequency of micturition R35.0 ; Family history of malignant neoplasm of digestive organs Z80.0 ; Family history of malignant neoplasm of ovary Z80.41 and Leiomyoma of uterus, unspecified D25.9 [facility] 103 Nov, Family history of malignant [facility] neoplasm of ovary Z80.41 [place] [id number] [facility] 103 Nov, [facility] [place] [id number] (routine) without abnormal findings Z01.419 ; Encounter for screening mammogram for malignant neoplasm of breast Z12.31 ; Family history of malignant neoplasm of digestive organs Z80.0 ; Family history of malignant neoplasm of ovary Z80.41 ; Dysmenorrhea, unspecified N94.6 and Other specified abnormal uterine and vaginal bleeding N93.8 [facility] 103 Nov, Family history of malignant [facility] neoplasm of ovary Z80.41 [place], [place] [id number] [facility] 103 Oct, Encounter for screening [facility] mammogram for malignant [place], [place] [id number] neoplasm of breast Z12.31 [facility] 103 Apr, [place] [id number] [facility] 103 Jan, Ovarian cyst NOS 620.2 [place] [id number] [facility] 103 Jan, FM HX OVARY [facility]NCY [facility] V16.41 and Ovarian cyst NOS [place] [id number] 620.2 [facility] 103 December, FM HX OVARY MALIGNANCY [facility] V16.41 and Ovarian cyst NOS [place] [id number] 620.2 [facility] 103 December, [place] [id number] [facility] 103 Nov, Menometrorrhagia 626.2 [place] [id number] [facility] 103 Nov, ROUTINE ANESTHESIA RESIDENT EXAMINATION [facility] V72.31 ; PAP SMEAR W/O ANESTHESIA RESIDENT [place], [place] [id number] EXAM V76.2 and Ovarian cyst NOS 620.2 [facility] 103 Nov, FM HX OVARY MALIGNANCY [facility] V16.41 and Ovarian cyst NOS [place], [place] [id number] 620.2 [facility] 103 Nov, [place] [id number] [facility] 103 Sep, Mammogram-Abnormal 793.80 [place] [id number] [facility] 103 May, Inconclusive mammogram OBGYN [facility] 793.82 [place] [id number] [facility] 103 May, FM HX OVARY MALIGNANCY OBG[place] [address] [place] [id number] [facility] 103 May, FM HX OVARY MALIGNANCY OBGYN [place] [id number] [id number] [facility] 103 Apr, [place] [id number] [facility] 103 Apr, O[place] [id number] [facility] 103 Nov, Breast Mass 611.72 OBGYN [place], [place] [id number] [facility] 103 Nov, O[place], [place] [id number] [facility] 103 Oct, ROUTINE ANESTHESIA RESIDENT EXAMINATION [facility] V72.31 ; [place], [place] [id number] vulvovaginitis 112.1 ; Dysmenorrhea 625.3 ; FAMILY HX-GI MALIGNANCY V16.0 ; Ovarian cyst NOS 620.2 ; Breast Mass 611.72 ; PAP SMEAR W/O ANESTHESIA RESIDENT EXAM V76.2 ; FM HX OVARY MALIGNANCY V16.41 and VAGINAL DISCHARGE 623.5 [facility] 103 Oct, FM HX OVARY MALIGNANCY OBGYN [place] [id number] [id number] [facility] 103 Oct, [place], [place] [id number] [facility] 103 Oct, OBGYN [place], [place] [id number] [facility] 103 Oct, [place] [id number] [facility] 103 Oct, Breast Mass 611.72 [place], [place] [id number] [facility] 103 Jun, O[place], [place] [id number] [facility] 103 May, OBG[place], [place] [id number] [facility] 103 May, FM HX OVARY MALIGNANCY OBGYN [place] [address] [place] [id number] [facility] 103 May, Breast Mass 611.72 and FM OBGYN [facility] HX OVARY MALIGNANCY V16.[address] [place] [address] [id number] [facility] 103 May, FM HX OVARY MALIGNANCY OBGYN [place] [address] [place] [id number] [facility] 103 Jan, OBGYN [place], [place] [id number] [facility] 103 Nov, OBG[place], [place] [id number] [facility] 103 Nov, Ovarian cyst NOS 620.2 and OBGYN [facility] HX OVARY MALIGNANCY [place] [id number] V16.41 [facility] 103 Nov, Ovarian cyst NOS 620.2 and OBGYN [facility] HX OVARY MALIGNANCY [place] [id number] V16.41 [facility] 103 Oct, O[place], [place] [id number] [facility] 103 Oct, O[place], [place] [id number] [facility] 103 Oct, [place], [place] [id number] [facility] 103 Sep, OBGYN [place], [place] [id number] [facility] 103 Sep, ROUTINE ANESTHESIA RESIDENT EXAMINATION OBGYN [facility] V72.31 ; FM HX OVARY [place], [place] [id number] MALIGNANCY V16.41 ; SCREEN MAMMOGRAM NEC V76.12 and Ovarian cyst NOS 620.2 [facility] 103 Sep, FM HX OVARY MALIGNANCY OBGYN [facility] V16.41 and Ovarian cyst NOS [place], [place] [id number] 620.2 [facility] 103 Mar, FM HX OVARY MALIGNANCY OBGYN [facility] V16.41 ; FAMILY HX-GI [place], [place] [id number] MALIGNANCY V16.0 and Dysmenorrhea 625.3 [facility] 103 Mar, FM HX OVARY MALIGNANCY OBGYN [facility] V16.41 [place] [id number] [facility] 103 Sep, OBGYN [place], [place] [id number] [facility] 103 Sep, ROUTINE ANESTHESIA RESIDENT EXAMINATION OBGYN [facility] V72.31 ; FM HX OVARY [place], [place] [id number] MALIGNANCY V16.41 ; Candidal vulvovaginitis 112.1 and Dysmenorrhea 625.3 [facility] 103 Sep, FM HX OVARY MALIGNANCY OBGYN [facility] V16.41 [place], [place] [id number] [facility] 103 Sep, ROUTINE ANESTHESIA RESIDENT EXAMINATION OBGYN [facility] V72.31 ; FM HX OVARY [place], [place] [id number] MALIGNANCY V16.41 and Menometrorrhagia 626.2 [facility] 103 Sep, FM HX OVARY MALIGNANCY OBGYN [facility] V16.41 and Menometrorrhagia [place] [id number] 626.2 [facility] 103 December, FAMILY HX-GI MALIGNANCY OBGYN [facility] V16.0 ; FM HX OVARY [place], [place] [id number] MALIGNANCY V16.41 ; Dysmenorrhea 625.3 and Menometrorrhagia 626.2 [facility] 103 Oct, [place] [id number] [facility] 103 Oct, FAMILY HX-GI MALIGNANCY OBGYN [facility] V16.0 and FM HX OVARY [place], [place] [id number] MALIGNANCY V16.41 [facility] 103 Oct, FM HX OVARY MALIGNANCY OBGYN [facility] V16.41 and Ovarian cyst NOS [place] [id number] 620.2 [facility] 103 Sep, FAMILY HX-GI MALIGNANCY OBGYN [facility] V16.0 and FM HX OVARY [place] [id number] MALIGNANCY V16.41 [facility] 103 Sep, ROUTINE ANESTHESIA RESIDENT EXAMINATION OBGYN [facility] V72.31 ; FAMILY HX-GI [place], [place] [id number] MALIGNANCY V16.0 and FM HX OVARY MALIGNANCY V16.41 [facility] 103 May, O[place]YN [place], [place] [id number] [facility] 103 Jan, O[place], [place] [id number] [facility] 103 Jan, Menometrorrhagia 626.2 and OBGYN [facility] VULVAR LESION 624.9 [place] [id number] [facility] 103 Jan, OBGYN [place], [place] [id number] [facility] 103 Oct, O[place], [place] [id number] [facility] 103 Oct, Menometrorrhagia 626.2 and OBGYN [facility] FAMILY HX-GI MALIGNANCY [place] [id number] V16.0 [facility] 103 Oct, Menometrorrhagia 626.2 OBGYN [place], [place] [id number] [facility] 103 Oct, Menometrorrhagia 626.2 [place] [id number] [facility] 103 Oct, O[place], [place] [id number] [facility] 103 Sep, O[place], [place] [id number] [facility] 103 Jun, O[place], [place] [id number] [facility] 103 May, Menometrorrhagia 626.2 ; [facility] OVARY MALIGNANCY V16.41 [place], [place] [id number] ; FAMILY HX-GI MALIGNANCY V16.0 and Dysmenorrhea 625.3 [facility] 103 May, Ovarian cyst NOS 620.2 ; [facility] HX OVARY MALIGNANCY V16.41 [place], [place] [id number] and FAMILY HX-GI MALIGNANCY V16.0 [facility] 103 Apr, ROUTINE ANESTHESIA RESIDENT EXAMINATION [facility] V72.31 [place], [place] [id number] [facility] 103 Mar, [facility]rhagia 626.2 [facility] 621.0 [place] [id number] [facility] 103 Feb, Menometrorrhagia 626.2 ; [facility] Endometrial polyp 621.0 and [place] [id number] Stenosis of cervix 622.4 [facility] 103 Feb, Menometrorrhagia 626.2 ; [facility] Endometrial polyp 621.0 and [place], [place] [id number] Stenosis of cervix 622.4 [facility] 103 Jan, [place], [place] [id number] [facility] 103 Jan, [place] [id number] [facility] 103 December, O[place] [id number] [facility] 103 Nov, OBGYN [place], [place] [id number] [facility] 103 Nov, Menometrorrhagia 626.2 ; [facility] End[facility]rial polyp 621.0 and [place] [id number] Stenosis of cervix 622.4 [facility] 103 Nov, Menometrorrhagia 626.2 ; OBG[facility] Stenosis of cervix 622.4 [place], [place] [id number] and Endometrial polyp 621.0 [facility] 103 Oct, Menometrorrhagia 626.2 ; [facility] Stenosis of cervix 622.4 [place] [id number] and Endometrial polyp 621.0 [facility] 103 Oct, Menometrorrhagia 626.2 [facility] Stenosis of cervix 622.4 [place], [place] [id number] [facility] 103 Oct, Menometrorrhagia 626.2 and OBGYN [facility] Endometrial polyp 621.0 [place], [place] [id number] [facility] 103 Sep, [place] [id number] [facility] 103 Sep, Menometrorrhagia 626.2 [facility] Stenosis of cervix 622.4 [place] [id number] [facility] 103 Sep, Menometrorrhagia 626.2 OBGYN [place], [place] [id number] [facility] 103 Aug, Menometrorrhagia 626.2 [place]YN [place] [id number] [facility] 103 Mar, OBG[place] [id number] [facility] 103 Feb, OBGYN [place] [id number] [facility] 103 Jan, [place] [id number] [facility] 103 Jan, [place] [id number] [facility] 103 December, [place] [id number] [facility] 103 Nov, OBGYN [place], [place] [id number] [facility] 103 Nov, ROUTINE ANESTHESIA RESIDENT EXAMINATION OBGYN [facility] V72.31 ; FM HX OVARY [place] [id number] MALIGNANCY V16.41 and FAMILY HX-GI MALIGNANCY V16.0 [facility] 103 Oct, [place] [id number] [facility] 103 Sep, [place] [id number] [facility] 103 Sep, [place], [place] [id number] [facility] 103 Jun, FM HX OVARY MALIGNANCY OBGYN [facility] V16.41 and FAMILY HX-GI [place] [id number] MALIGNANCY V16.0 [facility] 103 Jun, O[place]YN [place] [id number] [facility] 103 May, FAMILY HX-GI MALIGNANCY OBGYN [facility] V16.0 and FM HX OVARY [place], [place] [id number] MALIGNANCY V16.41 [facility] OBGYN 103 May, COUNSELING NOS V65.40 [place] [id number] [facility] OBGYN 103 Sep, Well Adult exam V 70.0 ; [facility] ANESTHESIA RESIDENT EXAMINATION [place], [place] [id number] V72.31 and Menorrhagia 626.2 IMMUNIZATIONS No Known Immunizations SOCIAL HISTORY Never Assessed REASON FOR REFERRAL FUNCTIONAL STATUS PLAN OF CARE Activity Details Pending Test MRIBRWWOBI VITAL SIGNS MEDICATIONS Unknown Medications PROCEDURES No Known procedures RESULTS No Results REASON FOR VISIT breast MRI due now [employer] - c x 1 Insurance Providers [facility] Health Member Patient Patient Patient Patient Patient Subscriber Subscriber Subscriber Group Insurance Plan Plan Plan Plan ID Relationship Address Phone Name Date of ID Name Date of No Type Insurance Insurance Insurance Coverage to Subscriber Address Phone Name Dates [employer] [phone] [employer] [place] [id number] -053[address] [place] [phone] Health Now [phone] Health Now [place]eline [id number] [facility] [address] [address] Health Now [phone] Health Now [place] [id number] [facility] [address] [address] [employer] 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 Increased colon cancer risk. Surgical History Surgical History Hysteroscopy/Site directed EMB 11/18/07 Surgical History HTA 02/17/08 Surgical History US-guided diagnostic hysteroscopy D&C. 9/26/18 Hospitalization History see above
--- OUTSIDE RECORDS SUMMARY | 2019-10-07 08:22 | XMS REPORT ---
:1970 Author Organization [facility] Address [address] [place] [address] Care Team Providers Name Role Phone Rola Calvo Unavailable Unavailable PROBLEMS Type Condition ICD9-CM QEN15-AD Onset Condition SNOMED Code Code Code Dates Status Problem Dysmenorrhea, N94.6 Active 730956730 unspecified Problem Family history of Z80.0 Active 639932961 malignant neoplasm of digestive organs Problem Other specified N93.8 Active 448824518 abnormal uterine and vaginal bleeding Problem Leiomyoma of D25.9 Active 15877672 uterus, unspecified Problem Family history of Z80.41 Active 592049017 malignant neoplasm of ovary Problem Unspecified N83.201 Active [id number] ovarian cyst, right side Problem Family history of Z80.3 Active 150473385 malignant neoplasm of breast Problem Inconclusive R92.2 Active 14070917 mammogram Problem Foreign body in T19.2XXA Active 670373179 vulva and vagina, initial encounter Problem Excessive and N92.0 Active 693150780 frequent menstruation with regular cycle Problem Low back pain M54.5 Active 507002373 Problem Other abnormal and R92.8 Active 478425996 inconclusive findings on diagnostic imaging of breast Problem Excessive and N92.0 Active 205943323 frequent menstruation Problem 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 Problem 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 Problem Unspecified N83.202 Active [id number] ovarian cyst, left side ALLERGIES No Information ENCOUNTERS Encounter Location Date Diagnosis [facility] 103 December, OBGYN [place] [id number] [facility] 103 December, [place] [id number] [facility] 103 Sep, [place] [id number] [facility] 103 Sep, [place] [id number] [facility] 103 Sep, Acute vaginitis N76.0 [place] [id number] [facility] 103 Sep, Low back pain M54.5 ; [facility] N76.0 and Foreign [place], [place] [id number] body in vulva and vagina, initial encounter T19.2XXA [facility] 103 Aug, [place] [id number] [facility] 103 Aug, Family history of malignant [facility] neoplasm of breast Z80.3 [place] [id number] [facility] 103 Aug, Unspecified ovarian cyst, [facility] left side N83.202 ; [place], [place] [id number] Leiomyoma of uterus, unspecified D25.9 and Family history of malignant neoplasm of breast Z80.3 [facility] 103 Aug, Unspecified ovarian cyst, [facility] left side N83.202 and [place], [place] [id number] Leiomyoma of uterus, unspecified D25.9 [facility] 103 May, [place] [id number] [facility] 103 May, Unspecified ovarian cyst, [facility] right side N83.201 ; [place] [id number] Unspecified ovarian cyst, left side N83.202 ; Excessive and frequent menstruation with regular cycle N92.0 and Leiomyoma of uterus, unspecified D25.9 [facility] 103 May, Unspecified ovarian cyst, OBGYN [facility] right side N83.201 ; [place], [place] [id number] Leiomyoma of uterus, unspecified D25.9 and Excessive and frequent menstruation with regular cycle N92.0 [facility] 103 December, [facility] ([facility] [place], [place] [id number] (routine) with abnormal findings Z01.411 ; Encounter [...] and Unspecified ovarian cyst, right side N83.201 [facility] 103 December, [facility] history of [facility] neoplasm of ovary Z80.41 [place], [place] [id number] and Leiomyoma of uterus, unspecified D25.9 [facility] 103 Aug, OBGYN [place] [id number] [address] Jun, Excessive and frequent [address] [place], menstruation with regular [place] [id number] cycle N92.0 ; Leiomyoma of uterus, unspecified D25.9 ; Family history of malignant neoplasm of breast Z80.3 ; Other abnormal and inconclusive findings on diagnostic imaging of breast R92.8 ; Genetic susceptibility to other malignant neoplasm Z15.09 ; Family history of malignant neoplasm of ovary Z80.41 and Family history of malignant neoplasm of digestive organs Z80.0 [facility] 103 Jun, [facility] of [facility] neoplasm of breast Z80.3 [place], [place] [id number] and Displacement of intrauterine contraceptive device, initial encounter T83.32XA [facility] [address] Apr, Excessive and frequent Medical Center [place] [id number] menstruation with regular cycle N92.0 ; Dysmenorrhea, unspecified N94.6 and Stricture and stenosis of cervix uteri N88.2 [facility] 103 Apr, OBGYN [place] [id number] [facility] 103 Apr, Excessive and frequent OBGYN [facility] menstruation with regular [place] [id number] cycle N92.0 ; Stricture and stenosis of cervix uteri N88.2 and Noninflammatory disorder of vagina, unspecified N89.9 [facility] 103 Mar, [place] [id number] [facility] 103 Mar, [place] [id number] [facility] 103 Mar, Excessive and frequent OBGYN [facility] menstruation with regular [place], [place] [id number] cycle N92.0 ; Other abnormal and inconclusive findings on diagnostic imaging of breast R92.8 ; Leiomyoma of uterus, unspecified D25.9 ; Genetic susceptibility to other malignant neoplasm Z15.09 ; Family history of malignant neoplasm of ovary Z80.41 ; Family history of malignant neoplasm of breast Z80.3 and Family history of malignant neoplasm of digestive organs Z80.0 [facility] 103 Feb, Excessive and frequent OBGYN [facility] menstruation with regular [place] [id number] cycle N92.0 [facility] 103 Feb, Excessive and frequent OBGYN [facility] menstruation with regular [place] [id number] cycle N92.0 [facility] 103 Feb, Excessive and frequent OBGYN [facility] menstruation with regular [place], [place] [id number] cycle N92.0 [facility] 103 Feb, Excessive and frequent [facility] menstruation with regular [place], [place] [id number] cycle N92.0 ; Leiomyoma of uterus, unspecified D25.9 and Other specified abnormal uterine and vaginal bleeding N93.8 [facility] Jan, OBG[place] [id number] [facility] 103 Jan, OBG[place] [id number] [facility] 103 Jan, Other abnormal and [facility] inconclusive findings on [place] [address] diagnostic imaging of breast R92.8 [facility] 103 Jan, Excessive and frequent [facility] menstruation N92.0 [place] [id number] [facility] 103 Jan, Excessive and frequent [facility] menstruation with regular [place], [place] [id number] cycle N92.0 ; Family history of malignant neoplasm of digestive organs Z80.0 ; Family history of malignant neoplasm of ovary Z80.41 ; Family history of malignant neoplasm of breast Z80.3 and Unspecified ovarian cyst, right side N83.201 [facility] 103 Jan, Leiomyoma of uterus, [facility] unspecified D25.9 ; Other [place] [id number] specified abnormal uterine and vaginal bleeding N93.8 ; Family history of malignant neoplasm of ovary Z80.41 and Excessive and frequent menstruation with regular cycle N92.0 [facility] 103 December, [facility]conclusive [facility] R92.2 [place] [id number] [facility] 103 December, Encounter for [facility]ological [facility] examination (general) [place] [id number] (routine) without abnormal findings Z01.419 ; Encounter [...] of breast Z80.3 and Dysmenorrhea, unspecified N94.6 [facility] 103 December, Family history of malignant [facility] neoplasm of ovary Z80.41 [place] [id number] and Leiomyoma of uterus, unspecified D25.9 [facility] 103 Nov, OBGYN [place] [id number] [facility] 103 Jun, OBGYN [place], [place] [id number] [facility] 103 Jun, Family history of malignant [facility] neoplasm of ovary Z80.41 [place] [id number] and Leiomyoma of uterus, unspecified D25.9 [facility] 103 Mar, Family history of malignant [facility] neoplasm of ovary Z80.41 [place], [place] [id number] and Leiomyoma of uterus, unspecified D25.9 [facility] 103 Mar, Family history of malignant [facility] neoplasm of ovary Z80.41 ; [place], [place] [id number] Other specified abnormal uterine and vaginal bleeding N93.8 and Leiomyoma of uterus, unspecified D25.9 [facility] 103 24 Nov, 2016 Other abnormal and [facility] inconclusive findings on [place], [place] [id number] diagnostic imaging of breast R92.8 [facility] 103 13 Nov, 2016 OBGYN [place] [id number] [facility] 103 10 Nov, 2016 Encounter for [facility]ological [facility] examination (general) [place], [place] [id number] (routine) without abnormal findings Z01.419 ; Encounter for screening mammogram for malignant neoplasm of breast Z12.31 ; Frequency of micturition R35.0 ; Family history of malignant neoplasm of digestive organs Z80.0 ; Family history of malignant neoplasm of ovary Z80.41 and Leiomyoma of uterus, unspecified D25.9 [facility] 103 Nov, Family history of malignant [facility] neoplasm of ovary Z80.41 [place] [id number] [facility] 103 Nov, [facility] examination (general) [place], [place] [id number] (routine) without abnormal findings Z01.419 ; Encounter for screening mammogram for malignant neoplasm of breast Z12.31 ; Family history of malignant neoplasm of digestive organs Z80.0 ; Family history of malignant neoplasm of ovary Z80.41 ; Dysmenorrhea, unspecified N94.6 and Other specified abnormal uterine and vaginal bleeding N93.8 [facility] 103 Nov, Family history of malignant [facility] neoplasm of ovary Z80.41 [place] [id number] [facility] 103 Oct, Encounter for screening [facility] mammogram for malignant [place] [id number] neoplasm of breast Z12.31 [facility] 103 08 Apr, 2015 OBGYN [place], [place] [id number] [facility] 103 Jan, Ovarian cyst NOS 620.2 OBGYN [place], [place] [id number] [facility] 103 Jan, FM HX OVARY MALIGNANCY [facility] V16.41 and Ovarian cyst NOS [place], [place] [id number] 620.2 [facility] 103 December, FM HX OVARY MALIGNANCY [facility] V16.41 and Ovarian cyst NOS [place] [id number] 620.2 [facility] 103 December, OBG[place] [id number] [facility] 103 Nov, Menometrorrhagia 626.2 OBGYN [place] [id number] [facility] 103 Nov, ROUTINE HEEL SEATER EXAMINATION OBGYN [facility] V72.31 ; PAP SMEAR W/O HEEL SEATER [place], [place] [id number] EXAM V76.2 and Ovarian cyst NOS 620.2 [facility] 103 Nov, FM HX OVARY MALIGNANCY OBGYN [facility] V16.41 and Ovarian cyst NOS [place], [place] [id number] 620.2 [facility] 103 Nov, OBGYN [place] [id number] [facility] 103 Sep, Mammogram-Abnormal 793.80 [place] [id number] [facility] 103 May, Inconclusive mammogram OBGYN [facility] 793.82 [place] [id number] [facility] 103 May, FM HX OVARY MALIGNANCY OBGYN [place] [id number] [id number] [facility] 103 May, FM HX OVARY MALIGNANCY OBGYN [address] [id number] [facility] 103 Apr, OBG[place] [id number] [facility] 103 Apr, OBG[place], [place] [id number] [facility] 103 Nov, Breast Mass 611.72 OBGYN [place], [place] [id number] [facility] 103 Nov, OBG[place] [id number] [facility] 103 Oct, ROUTINE HEEL SEATER EXAMINATION OBGYN [facility] V72.31 ; Candidal [place], [place] [id number] vulvovaginitis 112.1 ; Dysmenorrhea 625.3 ; FAMILY HX-GI MALIGNANCY V16.0 ; Ovarian cyst NOS 620.2 ; Breast Mass 611.72 ; PAP SMEAR W/O HEEL SEATER EXAM V76.2 ; FM HX OVARY MALIGNANCY V16.41 and VAGINAL DISCHARGE 623.5 [facility] 103 Oct, FM HX OVARY MALIGNANCY OBGYN [facility] V16.41 [place] [id number] [facility] 103 Oct, OBG[place], [place] [id number] [facility] 103 Oct, OBGYN [place], [place] [id number] [facility] 103 Oct, [place] [id number] [facility] 103 Oct, Breast Mass 611.72 OBGYN [place], [place] [address] [facility] 103 Jun, OBG[place] [id number] [facility] 103 May, OBG[place], [place] [id number] [facility] 103 May, FM HX OVARY MALIGNANCY OBGYN [place] [address] [place] [id number] [facility] 103 May, Breast Mass 611.72 and FM OBGYN [facility] HX OVARY MALIGNANCY V16.41 [place], [place] [id number] [facility] 103 May, FM HX OVARY MALIGNANCY OBN [place] [address] [place] [id number] [facility] 103 Jan, OBGYN [place], [place] [id number] [facility] 103 Nov, [place] [id number] [facility] 103 Nov, Ovarian cyst NOS 620.2 and OBGYN [facility] FM HX OVARY MALIGNANCY [place] [id number] V16.41 [facility] 103 Nov, Ovarian cyst NOS 620.2 and OBGYN [facility] FM HX OVARY MALIGNANCY [place], [place] [id number] V16.41 [facility] 103 Oct, OBG[place] [id number] [facility] 103 Oct, OBGYN [place], [place] [id number] [facility] 103 Oct, OBGYN [place] [id number] [facility] 103 Sep, OBGYN [place], [place] [address] [facility] 103 Sep, ROUTINE HEEL SEATER EXAMINATION [facility] V72.31 ; FM HX OVARY [place], [place] [id number] MALIGNANCY V16.41 ; SCREEN MAMMOGRAM NEC V76.12 and Ovarian cyst NOS 620.2 [facility] 103 Sep, FM HX OVARY MALIGNANCY OBGYN [facility] V16.41 and Ovarian cyst NOS [place], [place] [id number] 620.2 [facility] 103 Mar, FM HX OVARY MALIGNANCY OBGYN [facility] V16.41 ; FAMILY HX-GI [place], [place] [id number] MALIGNANCY V16.0 and Dysmenorrhea 625.3 [facility] 103 Mar, FM HX OVARY MALIGNANCY OBGYN [facility] V16.41 [place] [id number] [facility] 103 Sep, OBGYN [place], [place] [id number] [facility] 103 Sep, ROUTINE HEEL SEATER EXAMINATION OBGYN [facility] V72.31 ; FM HX OVARY [place] [id number] MALIGNANCY V16.41 ; Candidal vulvovaginitis 112.1 and Dysmenorrhea 625.3 [facility] 103 13 Sep, 2011 FM HX OVARY MALIGNANCY OBGYN [facility] V16.41 [place], [place] [id number] [facility] 103 Sep, ROUTINE HEEL SEATER EXAMINATION OBGYN [facility] V72.31 ; FM HX OVARY [place], [place] [id number] MALIGNANCY V16.41 and Menometrorrhagia 626.2 [facility] 103 Sep, FM HX OVARY MALIGNANCY OBGYN [facility] V16.41 and Menometrorrhagia [place], [place] [id number] 626.2 [facility] 103 December, FAMILY HX-GI MALIGNANCY OBGYN [facility] V16.0 ; FM HX OVARY [place], [place] [id number] MALIGNANCY V16.41 ; Dysmenorrhea 625.3 and Menometrorrhagia 626.2 [facility] 103 Oct, OBG[place], [place] [id number] [facility] 103 Oct, FAMILY HX-GI MALIGNANCY OBGYN [facility] V16.0 and FM HX OVARY [place], [place] [id number] MALIGNANCY V16.41 [facility] 103 Oct, FM HX OVARY MALIGNANCY OBGYN [facility] V16.41 and Ovarian cyst NOS [place], [place] [id number] 620.2 [facility] 103 Sep, FAMILY HX-GI MALIGNANCY OBGYN [facility] V16.0 and FM HX OVARY [place], [place] [id number] MALIGNANCY V16.41 [facility] 103 Sep, ROUTINE HEEL SEATER EXAMINATION OBGYN [place] [address]3662. ; FAMILY HX-GI [place], [place] [id number] MALIGNANCY V16.0 and FM HX OVARY MALIGNANCY V16.41 [facility] 103 May, OBGYN [place], [place] [id number] [facility] 103 Jan, OBGYN [place], [place] [id number] [facility] 103 Jan, Menometrorrhagia 626.2 and OBGYN [facility] VULVAR LESION 624.9 [place], [place] [id number] [facility] 103 Jan, OBGYN [place], [place] [id number] [facility] 103 Oct, OBGYN [place], [place] [id number] [facility] 103 Oct, Menometrorrhagia 626.2 and OBGYN [facility] FAMILY HX-GI MALIGNANCY [place] [id number] V16.0 [facility] 103 Oct, Menometrorrhagia 626.2 OBGYN [place], [place] [id number] [facility] 103 Oct, Menometrorrhagia 626.2 OBGYN [place], [place] [id number] [facility] 103 Oct, OBGYN [place], [place] [id number] [facility] 103 Sep, OBGYN [place], [place] [id number] [facility] 103 Jun, OBGYN [place] [id number] [facility] 103 May, Menometrorrhagia 626.2 ; FM OBGYN [facility] HX OVARY MALIGNANCY V16.41 [place], [place] [id number] ; FAMILY HX-GI MALIGNANCY V16.0 and Dysmenorrhea 625.3 [facility] 103 May, Ovarian cyst NOS 620.2 ; FM OBGYN [facility] HX OVARY MALIGNANCY V16.41 [place], [place] [id number] and FAMILY HX-GI MALIGNANCY V16.0 [facility] 103 30 Apr, 2008 ROUTINE HEEL SEATER EXAMINATION [facility] V72.31 [place], [place] [id number] [facility] 103 11 Mar, 2008 Menometrorrhagia 626.2 and OBGYN [facility] Endometrial polyp 621.0 [place], [place] [id number] [facility] 103 Feb, Menometrorrhagia 626.2 ; OBGYN [facility] Endometrial polyp 621.0 and [place], [place] [id number] Stenosis of cervix 622.4 [facility] 103 Feb, Menometrorrhagia 626.2 ; [facility] Endometrial polyp 621.0 and [place], [place] [id number] Stenosis of cervix 622.4 [facility] 103 Jan, OBGYN [place], [place] [id number] [facility] 103 Jan, OBGYN [place], [place] [id number] [facility] 103 December, OBGYN [place], [place] [id number] [facility] 103 Nov, OBGYN [place], [place] [id number] [facility] 103 Nov, Menometrorrhagia 626.2 ; OBGYN [facility] Endometrial polyp 621.0 and [place] [id number] Stenosis of cervix 622.4 [facility] 103 Nov, Menometrorrhagia 626.2 ; OBGYN [facility] Stenosis of cervix 622.4 [place], [place] [id number] and Endometrial polyp 621.0 [facility] 103 Oct, Menometrorrhagia 626.2 ; OBGYN [facility] Stenosis of cervix 622.4 [place], [place] [id number] and Endometrial polyp 621.0 [facility] 103 Oct, Menometrorrhagia 626.2 and OBGYN [facility] Stenosis of cervix 622.4 [place], [place] [id number] [facility] 103 Oct, Menometrorrhagia 626.2 and OBGYN [facility] Endometrial polyp 621.0 [place], [place] [id number] [facility] 103 Sep, OBGYN [place], [place] [id number] [facility] 103 Sep, Menometrorrhagia 626.2 and OBN [facility] Stenosis of cervix 622.4 [place], [place] [id number] [facility] 103 Sep, Menometrorrhagia 626.2 OBGYN [place], [place] [id number] [facility] 103 Aug, Menometrorrhagia 626.2 OBGYN [place], [place] [id number] [facility] 103 Mar, [place] [id number] [facility] 103 Feb, [place] [id number] [facility] 103 Jan, OBGYN [place] [id number] [facility] 103 Jan, OBGYN [place], [place] [id number] [facility] 103 December, [place] [id number] [facility] 103 Nov, [place] [address] [facility] 103 Nov, ROUTINE HEEL SEATER EXAMINATION OBGYN [facility] V72.31 ; FM HX OVARY [place], [place] [id number] MALIGNANCY V16.41 and FAMILY HX-GI MALIGNANCY V16.0 [facility] 103 Oct, OBGYN [place], [place] [id number] [facility] 103 Sep, OBGYN [place], [place] [id number] [facility] 103 Sep, OBGYN [place], [place] [id number] [facility] 103 Jun, FM HX OVARY MALIGNANCY OBGYN [facility] V16.41 and FAMILY HX-GI [place], [place] [id number] MALIGNANCY V16.0 [facility] 103 Jun, OBGYN [place], [place] [id number] [facility] 103 May, FAMILY HX-GI MALIGNANCY OBGYN [facility] V16.0 and FM HX OVARY [place], [place] [id number] MALIGNANCY V16.41 [facility] 103 May, COUNSELING NOS V65.40 OBGYN [place], [place] [id number] [facility] 103 Sep, Well Adult exam V 70.0 ; OBGYN [facility] ROUTINE HEEL SEATER EXAMINATION [place] [id number] V72.31 and Menorrhagia 626.2 IMMUNIZATIONS No Known Immunizations SOCIAL HISTORY Never Assessed REASON FOR REFERRAL FUNCTIONAL STATUS PLAN OF CARE VITAL SIGNS MEDICATIONS Unknown Medications PROCEDURES No Known procedures RESULTS No Results REASON FOR VISIT Insurance Providers [facility] Patient Patient Patient Patient Patient Subscriber Subscriber Subscriber Group Insurance Plan Plan Plan Plan ID Relationship Address Phone Name Date of ID Name Date of No Type Insurance Insurance Insurance Coverage to Subscriber Address Phone Name Dates [employer] [phone] [employer] self Jacqueline [id number] -053-0 [facility] [phone] Health Now [phone] Health Now Jacqueline [id number] [place] [phone] [place] [address] [phone] Health Now [phone] Health Now Jacqueline [id number] [facility] [address] [phone] [employer] 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 Increased colon cancer risk. Surgical History Surgical History Hysteroscopy/Site directed E[facility] 11/18/07 Surgical History HTA 02/17/08 Surgical History US-guided diagnostic hysteroscopy D&C. 05/13/18 Hospitalization History see above
--- OUTSIDE RECORDS SUMMARY | 2019-10-07 08:22 | XMS REPORT ---
:1970 Author Name Tami Artis Address [address] [place] [address] Care Team Providers Name Role Phone Tami Artis Unavailable Unavailable PROBLEMS Type Condition ICD9-CM [id number] Onset Condition SNOMED Code Code Code Dates Status Problem Dysmenorrhea, N94.6 Active 055345592 unspecified Problem Family history of Z80.0 Active 455568915 malignant neoplasm of digestive organs Problem Other specified N93.8 Active 583463974 abnormal uterine and vaginal bleeding Problem Other abnormal and R92.8 Active 906435385 inconclusive findings on diagnostic imaging of breast Problem Unspecified N83.201 Active [id number] ovarian cyst, right side Problem Family history of Z80.3 Active 468274397 malignant neoplasm of breast Problem 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 54447303 stenosis of cervix uteri Problem Leiomyoma of D25.9 Active 53577570 uterus, unspecified Problem Unspecified N83.202 Active [id number] ovarian cyst, left side Problem Family history of Z80.41 Active 416675178 malignant neoplasm of ovary Problem Excessive and N92.0 Active 968950331 frequent menstruation with regular cycle Problem Inconclusive R92.2 Active 00874355 mammogram Problem Excessive and N92.0 Active 566347352 frequent menstruation Problem 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 ALLERGIES Substance Reaction Event Type Date Status penicillin hives Drug Allergy Aug, Active ENCOUNTERS Encounter Location Date Diagnosis [facility] 103 December, OBGYN [place] [id number] [facility] 103 December, [place] [id number] [facility] Aug, [place], [place] [id number] [facility] 103 Aug, Unspecified ovarian cyst, [facility] left side N83.202 ; [place], [place] [id number] Leiomyoma of uterus, unspecified D25.9 and Family history of malignant neoplasm of breast Z80.3 [facility] 103 Aug, Unspecified ovarian cyst, [facility] left side N83.202 and [place], [place] [id number] Leiomyoma of uterus, unspecified D25.9 [facility] 103 May, [place] [id number] [facility] 103 May, Unspecified ovarian cyst, [facility] right side N83.201 ; [place], [place] [id number] Unspecified ovarian cyst, left side N83.202 ; Excessive and frequent menstruation with regular cycle N92.0 and Leiomyoma of uterus, unspecified D25.9 [facility] 103 May, Unspecified ovarian cyst, [facility] right side N83.201 ; [place], [place] [id number] Leiomyoma of uterus, unspecified D25.9 and Excessive and frequent menstruation with regular cycle N92.0 [facility] 103 December, Encounter for gynecological [facility] examination (general) [place], [place] [id number] (routine) with abnormal findings Z01.411 ; Encounter [...] and Unspecified ovarian cyst, right side N83.201 [facility] 103 December, Family history of malignant [facility] neoplasm of ovary Z80.41 [place], [place] [id number] and Leiomyoma of uterus, unspecified D25.9 [facility] 103 Aug, OBGYN [place] [id number] [address] Jun, Excessive and frequent [address] [place], menstruation with regular [place] [id number] cycle N92.0 ; Leiomyoma of uterus, unspecified D25.9 ; Family history of malignant neoplasm of breast Z80.3 ; Other abnormal and inconclusive findings on diagnostic imaging of breast R92.8 ; Genetic susceptibility to other malignant neoplasm Z15.09 ; Family history of malignant neoplasm of ovary Z80.41 and Family history of malignant neoplasm of digestive organs Z80.0 [facility] 103 Jun, Family history of malignant [facility] neoplasm of breast Z80.3 [place], [place] [id number] and Displacement of intrauterine contraceptive device, initial encounter T83.32XA [facility] [address] Apr, Excessive and frequent [facility] [place] [id number] menstruation with regular cycle N92.0 ; Dysmenorrhea, unspecified N94.6 and Stricture and stenosis of cervix uteri N88.2 [facility] 103 Apr, OBGYN [place] [id number] [facility] 103 Apr, Excessive and frequent OBGYN [facility] menstruation with regular [place], [place] [id number] cycle N92.0 ; Stricture and stenosis of cervix uteri N88.2 and Noninflammatory disorder of vagina, unspecified N89.9 [facility] 103 Mar, OBGYN [place] [id number] [facility] 103 Mar, OBGYN [place] [id number] [facility] 103 Mar, Excessive and frequent OBGYN [facility] menstruation with regular [place] [id number] cycle N92.0 ; Other abnormal and inconclusive findings on diagnostic imaging of breast R92.8 ; Leiomyoma of uterus, unspecified D25.9 ; Genetic susceptibility to other malignant neoplasm Z15.09 ; Family history of malignant neoplasm of ovary Z80.41 ; Family history of malignant neoplasm of breast Z80.3 and Family history of malignant neoplasm of digestive organs Z80.0 [facility] 103 Feb, Excessive and frequent OBGYN [facility] menstruation with regular [place], [place] [id number] cycle N92.0 [facility] 103 Feb, Excessive and frequent OBGYN [facility] menstruation with regular [place], [place] [id number] cycle N92.0 [facility] 103 Feb, Excessive and frequent OBGYN [facility] menstruation with regular [place], [place] [id number] cycle N92.0 [facility] 103 Feb, Excessive and frequent OBGYN [facility] menstruation with regular [place], [place] [id number] cycle N92.0 ; Leiomyoma of uterus, unspecified D25.9 and Other specified abnormal uterine and vaginal bleeding N93.8 [facility] 103 Jan, OBGYN [place] [id number] [facility] 103 Jan, OBG[place] [id number] [facility] 103 Jan, Other abnormal and OBGYN [facility] inconclusive findings on [place], [place] [id number] diagnostic imaging of breast R92.8 [facility] 103 Jan, Excessive and frequent OBGYN [facility] menstruation N92.0 [place] [id number] [facility] 103 Jan, Excessive and frequent OBGYN [facility] menstruation with regular [place], [place] [id number] cycle N92.0 ; Family history of malignant neoplasm of digestive organs Z80.0 ; Family history of malignant neoplasm of ovary Z80.41 ; Family history of malignant neoplasm of breast Z80.3 and Unspecified ovarian cyst, right side N83.201 [facility] 103 Jan, Leiomyoma of uterus, [facility] unspecified D25.9 ; Other [place], [place] [id number] specified abnormal uterine and vaginal bleeding N93.8 ; Family history of malignant neoplasm of ovary Z80.41 and Excessive and frequent menstruation with regular cycle N92.0 [facility] 103 December, Inconclusive mammogram [facility] R92.2 [place], [place] [id number] [facility] 103 December, Encounter for gynecological [facility] examination (general) [place], [place] [id number] (routine) without abnormal findings Z01.419 ; Encounter [...] of breast Z80.3 and Dysmenorrhea, unspecified N94.6 [facility] 103 December, Family history of malignant [facility] neoplasm of ovary Z80.41 [place] [id number] and Leiomyoma of uterus, unspecified D25.9 [facility] 103 Nov, [place] [id number] [facility] 103 Jun, [place] [id number] [facility] 103 Jun, Family history of malignant [facility] neoplasm of ovary Z80.41 [place], [place] [id number] and Leiomyoma of uterus, unspecified D25.9 [facility] 103 Mar, [facility] neoplasm of ovary Z80.41 [place] [id number] and Leiomyoma of uterus, unspecified D25.9 [facility] 103 Mar, Family history of malignant [facility] neoplasm of ovary Z80.41 ; [place], [place] [id number] Other specified abnormal uterine and vaginal bleeding N93.8 and Leiomyoma of uterus, unspecified D25.9 [facility] 103 Nov, Other [facility] inconclusive findings on [place] [id number] diagnostic imaging of breast R92.8 [facility] 103 13 Nov, 2016 OBGYN [place] [id number] [facility] 103 Nov, [facility] ([facility] [place], [place] [id number] (routine) without abnormal findings Z01.419 ; Encounter for screening mammogram for malignant neoplasm of breast Z12.31 ; Frequency of micturition R35.0 ; Family history of malignant neoplasm of digestive organs Z80.0 ; Family history of malignant neoplasm of ovary Z80.41 and Leiomyoma of uterus, unspecified D25.9 [facility] 103 Nov, Family history of malignant [facility] neoplasm of ovary Z80.41 [place] [id number] [facility] 103 Nov, [facility] [place], [place] [id number] (routine) without abnormal findings Z01.419 ; Encounter for screening mammogram for malignant neoplasm of breast Z12.31 ; Family history of malignant neoplasm of digestive organs Z80.0 ; Family history of malignant neoplasm of ovary Z80.41 ; Dysmenorrhea, unspecified N94.6 and Other specified abnormal uterine and vaginal bleeding N93.8 [facility] 103 Nov, [facility] neoplasm of ovary Z80.41 [place] [id number] [facility] 103 17 Oct, 2015 Encounter for screening OBN [facility] mammogram for malignant [place], [place] [id number] neoplasm of breast Z12.31 [facility] 103 Apr, OBGYN [place] [id number] [facility] 103 Jan, Ovarian cyst NOS 620.2 OBGYN [place] [id number] [facility] 103 Jan, FM HX OVARY MALIGNANCY OBGYN [facility] V16.41 and Ovarian cyst NOS [place] [id number] 620.2 [facility] 103 December, FM HX OVARY MALIGNANCY OBGYN [facility] V16.41 and Ovarian cyst NOS [place], [place] [id number] 620.2 [facility] 103 December, OBG[place] [id number] [facility] 103 Nov, Menometrorrhagia 626.2 O[place] [id number] [facility] 103 Nov, ROUTINE FLOOR INSPECTOR EXAMINATION [facility] V72.31 ; PAP SMEAR W/O FLOOR INSPECTOR [place], [place] [id number] EXAM V76.2 and Ovarian cyst NOS 620.2 [facility] 103 Nov, FM HX OVARY MALIGNANCY OBGYN [facility] V16.41 and Ovarian cyst NOS [place], [place] [id number] 620.2 [facility] 103 Nov, OBGYN [place] [id number] [facility] 103 Sep, Mammogram-Abnormal 793.80 [place] [id number] [facility] 103 May, Inconclusive mammogram OBGYN [facility] 793.82 [place] [id number] [facility] 103 May, FM HX OVARY MALIGNANCY OBGYN [place] [address] [place] [id number] [facility] 103 May, FM HX OVARY MALIGNANCY OBGYN [place] [address] [place] [id number] [facility] 103 Apr, OBG[place] [id number] [facility] 103 Apr, O[place] [id number] [facility] 103 Nov, Breast Mass 611.72 OBGYN [place] [id number] [facility] 103 Nov, OBGYN [place] [id number] [facility] 103 Oct, ROUTINE FLOOR INSPECTOR EXAMINATION [facility] V72.31 ; [place] [id number] vulvovaginitis 112.1 ; Dysmenorrhea 625.3 ; FAMILY HX-GI MALIGNANCY V16.0 ; Ovarian cyst NOS 620.2 ; Breast Mass 611.72 ; PAP SMEAR W/O FLOOR INSPECTOR EXAM V76.2 ; FM HX OVARY MALIGNANCY V16.41 and VAGINAL DISCHARGE 623.5 [facility] 103 Oct, FM HX OVARY MALIGNANCY OBGYN [place] [id number] [id number] [facility] 103 Oct, OBG[place] [id number] [facility] 103 Oct, OBGYN [place] [id number] [facility] 103 Oct, OBG[place] [id number] [facility] 103 Oct, Breast Mass 611.72 OBGYN [place] [id number] [facility] 103 Jun, OBG[place] [id number] [facility] 103 May, OBG[place] [id number] [facility] 103 May, FM HX OVARY MALIGNANCY OBGYN [place] [address] [place] [id number] [facility] 103 May, Breast Mass 611.72 and FM OBGYN [facility] HX OVARY MALIGNANCY V16.[address] [place] [id number] [facility] 103 May, FM HX OVARY MALIGNANCY OBGYN [place] [address] [place] [id number] [facility] 103 Jan, OBGYN [place] [id number] [facility] 103 Nov, OBG[place], [place] [id number] [facility] 103 Nov, Ovarian cyst NOS 620.2 and OBGYN [facility] HX OVARY MALIGNANCY [place], [place] [id number] V16.41 [facility] 103 Nov, Ovarian cyst NOS 620.2 and OBGYN [facility] HX OVARY MALIGNANCY [place], [place] [id number] V16.41 [facility] 103 Oct, OBG[place] [id number] [facility] 103 Oct, [place] [id number] [facility] 103 Oct, [place] [id number] [facility] 103 Sep, OBG[place] [id number] [facility] 103 Sep, ROUTINE FLOOR INSPECTOR EXAMINATION OBGYN [facility] V72.31 ; FM HX OVARY [place], [place] [id number] MALIGNANCY V16.41 ; SCREEN MAMMOGRAM NEC V76.12 and Ovarian cyst NOS 620.2 [facility] 103 Sep, FM HX OVARY MALIGNANCY OBGYN [facility] V16.41 and Ovarian cyst NOS [place], [place] [id number] 620.2 [facility] 103 Mar, FM HX OVARY MALIGNANCY OBGYN [facility] V16.41 ; FAMILY HX-GI [place], [place] [id number] MALIGNANCY V16.0 and Dysmenorrhea 625.3 [facility] 103 Mar, FM HX OVARY MALIGNANCY OBGYN [facility] V16.41 [place] [id number] [facility] 103 Sep, O[place] [id number] [facility] 103 Sep, ROUTINE FLOOR INSPECTOR EXAMINATION [facility] V72.31 ; FM HX OVARY [place], [place] [id number] MALIGNANCY V16.41 ; Candidal vulvovaginitis 112.1 and Dysmenorrhea 625.3 [facility] 103 Sep, FM HX OVARY MALIGNANCY OBGYN [facility] V16.41 [place] [id number] [facility] 103 Sep, ROUTINE FLOOR INSPECTOR EXAMINATION OBGYN [facility] V72.31 ; FM HX OVARY [place], [place] [id number] MALIGNANCY V16.41 and Menometrorrhagia 626.2 [facility] 103 Sep, FM HX OVARY MALIGNANCY OBGYN [facility] V16.41 and Menometrorrhagia [place], [place] [id number] 626.2 [facility] 103 December, FAMILY HX-GI MALIGNANCY OBGYN [facility] V16.0 ; FM HX OVARY [place], [place] [id number] MALIGNANCY V16.41 ; Dysmenorrhea 625.3 and Menometrorrhagia 626.2 [facility] 103 Oct, OBGYN [place] [id number] [facility] 103 Oct, FAMILY HX-GI MALIGNANCY OBGYN [facility] V16.0 and FM HX OVARY [place], [place] [id number] MALIGNANCY V16.41 [facility] 103 Oct, FM HX OVARY MALIGNANCY OBGYN [facility] V16.41 and Ovarian cyst NOS [place], [place] [id number] 620.2 [facility] 103 Sep, FAMILY HX-GI MALIGNANCY OBGYN [facility] V16.0 and FM HX OVARY [place], [place] [id number] MALIGNANCY V16.41 [facility] 103 Sep, ROUTINE FLOOR INSPECTOR EXAMINATION OBGYN [facility] V72.31 ; FAMILY HX-GI [place], [place] [id number] MALIGNANCY V16.0 and FM HX OVARY MALIGNANCY V16.41 [facility] 103 May, O[place] [id number] [facility] 103 Jan, OBGYN [place] [id number] [facility] 103 Jan, Menometrorrhagia 626.2 and OBGYN [facility] VULVAR LESION 624.9 [place], [place] [id number] [facility] [facility] 103 Jan, O[place] [id number] [facility] 103 Oct, O[place] [id number] [facility] 103 Oct, Menometrorrhagia 626.2 and OBGYN [facility] FAMILY HX-GI MALIGNANCY [place], [place] [id number] V16.0 [facility] 103 Oct, Menometrorrhagia 626.2 O[place] [id number] [facility] 103 18 Oct, 2008 Menometrorrhagia 626.2 [place] [id number] [place] [facility] 103 Oct, OBG[place] [id number] [facility] 103 Sep, O[place] [id number] [facility] [facility] 103 Jun, OBG[place] [id number] [facility] 103 May, Menometrorrhagia 626.2 ; [facility] HX OVARY MALIGNANCY V16.41 [place], [place] [id number] ; FAMILY HX-GI MALIGNANCY V16.0 and Dysmenorrhea 625.3 [facility] 103 May, Ovarian cyst NOS 620.2 ; [facility] HX OVARY MALIGNANCY V16.41 [place], [place] [id number] and FAMILY HX-GI MALIGNANCY V16.0 [facility] 103 Apr, ROUTINE FLOOR INSPECTOR EXAMINATION [facility] V72.31 [place] [id number] [place] [facility] 103 Mar, [facility]ometrorrhagia 626.2 [facility] Endometrial polyp 621.0 [place] [id number] [place] [facility] 103 Feb, Menometrorrhagia 626.2 ; [facility] Endometrial polyp 621.0 and [place], [place] [id number] Stenosis of cervix 622.4 [place] [facility] 103 Feb, Menometrorrhagia 626.2 ; [facility] Endometrial polyp 621.0 and [place], [place] [id number] Stenosis of cervix 622.4 [facility] 103 Jan, [place] [id number] [facility] 103 Jan, O[place] [id number] [facility] 103 December, OBG[place] [id number] [facility] 103 Nov, O[place] [id number] [facility] 103 Nov, Menometrorrhagia 626.2 ; OBGYN [facility] Endometrial polyp 621.0 and [place], [place] [id number] Stenosis of cervix 622.4 [place] 103 Nov, Menometrorrhagia 626.2 ; OBGYN [facility] Stenosis of cervix 622.4 [place], [place] [id number] and Endometrial polyp 621.0 [place] [facility] 103 Oct, Menometrorrhagia 626.2 ; OBGYN [facility] Stenosis of cervix 622.4 [place], [place] [id number] and Endometrial polyp 621.0 [facility] [facility] 103 Oct, Menometrorrhagia 626.2 and OBGYN [facility] Stenosis of cervix 622.4 [place], [place] [id number] [place] [facility] 103 Oct, Menometrorrhagia 626.2 [facility] Endometrial polyp 621.0 [place], [place] [id number] [facility] 103 Sep, O[place] [id number] [facility] 103 Sep, Menometrorrhagia 626.2 [facility] Stenosis of cervix 622.4 [place], [place] [id number] [facility] 103 Sep, Menometrorrhagia 626.2 OBGYN [place] [id number] [facility] 103 Aug, Menometrorrhagia 626.2 [place] [id number] [facility] 103 Mar, OBG[place] [id number] [facility] 103 Feb, O[place] [id number] [facility] 103 Jan, O[place] [id number] [facility] 103 Jan, [place] [id number] [facility] 103 December, O[place] [id number] [facility] 103 Nov, OBG[place], [place] [id number] [facility] 103 Nov, ROUTINE FLOOR INSPECTOR EXAMINATION OBGYN [facility] V72.31 ; FM HX OVARY [place], [place] [id number] MALIGNANCY V16.41 and FAMILY HX-GI MALIGNANCY V16.0 [facility] 103 Oct, O[place] [id number] [facility] 103 Sep, O[place] [id number] [facility] 103 Sep, OBG[place] [id number] [facility] 103 Jun, FM HX OVARY MALIGNANCY OBGYN [facility] V16.41 and FAMILY HX-GI [place], [place] [id number] MALIGNANCY V16.0 [facility] 103 Jun, OBG[place] [id number] [facility] 103 May, FAMILY HX-GI MALIGNANCY OBGYN [facility] V16.0 and FM HX OVARY [place], [place] [id number] MALIGNANCY V16.41 [facility] 103 May, COUNSELING NOS V65.40 OBGYN [place] [id number] [facility] 103 Sep, Well Adult exam V 70.0 ; OBGYN [facility] ROUTINE FLOOR INSPECTOR EXAMINATION [place] [id number] V72.31 and Menorrhagia 626.2 IMMUNIZATIONS No Known Immunizations SOCIAL HISTORY Never Assessed REASON FOR REFERRAL FUNCTIONAL STATUS PLAN OF CARE Activity Details Follow Up as scheduled Reason: VITAL SIGNS Height 64 in 2019-08-31 Weight 174 lbs 2019-08-31 BMI 29.86 kg/m2 2019-08-31 Blood pressure systolic 130 mm Hg 2019-08-31 Blood pressure diastolic 78 mm Hg 2019-08-31 MEDICATIONS Medication Instructions Dosage Frequency Start Date End Date Duration Status ibuprofen 800 orally q8 hrs PRN 1 tab(s) Active mg PROCEDURES No Known procedures RESULTS No Results REASON FOR VISIT US follow up and [employer] Insurance Providers [facility] Patient Patient Patient Patient Patient Subscriber Subscriber Subscriber Group Insurance Plan Plan Plan Plan ID Relationship Address Phone Name Date of ID Name Date of No Type Insurance Insurance Insurance Coverage to Subscriber Address Phone Name Dates [employer] [phone] [employer] Jacqueline [id number] -[phone] [place] [phone] [employer] 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 Increased colon cancer risk. Surgical History Surgical History Hysteroscopy/Site directed [facility] 11/18/07 Surgical History HTA 02/17/08 Surgical History US-guided diagnostic hysteroscopy D&C. 05/13/18 Hospitalization History see above
--- OUTSIDE RECORDS SUMMARY | 2019-10-07 08:22 | XMS REPORT ---
:1970 Author Organization [facility]BN Address [address] [place] [address] Care Team Providers Name Role Phone Rola Calvo Unavailable Unavailable PROBLEMS Type Condition ICD9-CM [id number] Onset Condition SNOMED Code Code Code Dates Status Problem Dysmenorrhea, N94.6 Active 776274677 unspecified Problem Family history of Z80.0 Active 436786473 malignant neoplasm of digestive organs Problem Other specified N93.8 Active 475303773 abnormal uterine and vaginal bleeding Problem Other abnormal and R92.8 Active 007619729 inconclusive findings on diagnostic imaging of breast Problem Unspecified N83.201 Active [id number] ovarian cyst, right side Problem Family history of Z80.3 Active 332399780 malignant neoplasm of breast Problem 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 60462754 stenosis of cervix uteri Problem Leiomyoma of D25.9 Active 84877612 uterus, unspecified Problem Unspecified N83.202 Active [id number] ovarian cyst, left side Problem Family history of Z80.41 Active 613948925 malignant neoplasm of ovary Problem Excessive and N92.0 Active 166867818 frequent menstruation with regular cycle Problem Inconclusive R92.2 Active 95944617 mammogram Problem Excessive and N92.0 Active 635694299 frequent menstruation Problem 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 ALLERGIES No Information ENCOUNTERS Encounter Location Date Diagnosis [facility] 103 December, [place]BG[place] [id number] [facility] 103 December, OBG[place] [id number] [facility] 103 Aug, [place], [place] [id number] [facility] 103 Aug, Unspecified [facility], [facility] N83.202 ; [place], [place] [id number] Leiomyoma of uterus, unspecified D25.9 and Family history of malignant neoplasm of breast Z80.3 [facility] 103 Aug, [facility], [facility] N83.202 and [place], [place] [id number] Leiomyoma of uterus, unspecified D25.9 [facility] 103 May, [place], [place] [id number] [facility] 103 May, Unspecified ovarian cyst, [facility] right side N83.201 ; [place], [place] [id number] Unspecified ovarian cyst, left side N83.202 ; Excessive and frequent menstruation with regular cycle N92.0 and Leiomyoma of uterus, unspecified D25.9 [facility] 103 May, Unspecified ovarian cyst, [facility] right side N83.201 ; [place], [place] [id number] Leiomyoma of uterus, unspecified D25.9 and Excessive and frequent menstruation with regular cycle N92.0 [facility] 103 December, Encounter for gynecological [facility] examination (general) [place], [place] [id number] (routine) with abnormal findings Z01.411 ; Encounter [...] Unspecified ovarian cyst, right side N83.201 [facility] 103 December, Family history of malignant [facility] neoplasm of ovary Z80.41 [place], [place] [id number] and Leiomyoma of uterus, unspecified D25.9 [facility] 103 Aug, OBGYN [place] [id number] [address] Jun, Excessive and frequent [address] [place], menstruation with regular [place] [id number] cycle N92.0 ; Leiomyoma of uterus, unspecified D25.9 ; Family history of malignant neoplasm of breast Z80.3 ; Other abnormal and inconclusive findings on diagnostic imaging of breast R92.8 ; Genetic susceptibility to other malignant neoplasm Z15.09 ; Family history of malignant neoplasm of ovary Z80.41 and Family history of malignant neoplasm of digestive organs Z80.0 [facility] 103 Jun, Family history of malignant [facility] neoplasm of breast Z80.3 [place], [place] [id number] and Displacement of intrauterine contraceptive device, initial encounter T83.32[facility] [address] Apr, Excessive and frequent Medical Center [place] [address] menstruation with regular cycle N92.0 ; Dysmenorrhea, unspecified N94.6 and Stricture and stenosis of cervix uteri N88.2 [facility] 103 Apr, OBGYN [place] [id number] [facility] 103 Apr, Excessive and frequent OBGYN [facility] menstruation with regular [place], [place] [id number] cycle N92.0 ; Stricture and stenosis of cervix uteri N88.2 and Noninflammatory disorder of vagina, unspecified N89.9 [facility] 103 Mar, OBGYN [place] [id number] [facility] 103 Mar, OBGYN [place] [id number] [facility] 103 Mar, Excessive and frequent OBGYN [facility] menstruation with regular [place], [place] [id number] cycle N92.0 ; Other abnormal and inconclusive findings on diagnostic imaging of breast R92.8 ; Leiomyoma of uterus, unspecified D25.9 ; Genetic susceptibility to other malignant neoplasm Z15.09 ; Family history of malignant neoplasm of ovary Z80.41 ; Family history of malignant neoplasm of breast Z80.3 and Family history of malignant neoplasm of digestive organs Z80.0 [facility] 103 Feb, Excessive and frequent OBGYN [facility] menstruation with regular [place], [place] [id number] cycle N92.0 [facility] 103 Feb, Excessive and frequent OBGYN [facility] menstruation with regular [place], [place] [address] cycle N92.0 [facility] 103 Feb, Excessive and frequent OBGYN [facility] menstruation with regular [place], [place] [address] cycle N92.0 [facility] 103 Feb, Excessive and frequent OBGYN [facility] menstruation with regular [place], [place] [id number] cycle N92.0 ; Leiomyoma of uterus, unspecified D25.9 and Other specified abnormal uterine and vaginal bleeding N93.8 [facility] 103 Jan, OBGYN [place], [place] [id number] [facility] 103 Jan, OBGYN [place], [place] [id number] [facility] 103 Jan, Other abnormal and OBGYN [facility] inconclusive findings on [place], [place] [address] diagnostic imaging of breast R92.8 [facility] 103 Jan, Excessive and frequent OBGYN [facility] menstruation N92.0 [place], [place] [id number] [facility] 103 Jan, Excessive and frequent OBGYN [facility] menstruation with regular [place], [place] [address] cycle N92.0 ; Family history of malignant neoplasm of digestive organs Z80.0 ; Family history of malignant neoplasm of ovary Z80.41 ; Family history of malignant neoplasm of breast Z80.3 and Unspecified ovarian cyst, right side N83.201 [facility] 103 Jan, Leiomyoma of uterus, [facility] unspecified D25.9 ; Other [place], [place] [id number] specified abnormal uterine and vaginal bleeding N93.8 ; Family history of malignant neoplasm of ovary Z80.41 and Excessive and frequent menstruation with regular cycle N92.0 [facility] 103 December, Inconclusive mammogram [facility] R92.2 [place], [place] [id number] [facility] 103 December, Encounter for gynecological [facility] examination (general) [place], [place] [id number] (routine) without abnormal findings Z01.419 ; Encounter [...] of breast Z80.3 and Dysmenorrhea, unspecified N94.6 [facility] 103 December, Family history of malignant [facility] neoplasm of ovary Z80.41 [place], [place] [id number] and Leiomyoma of uterus, unspecified D25.9 [facility] 103 Nov, [place] [id number] [facility] 103 Jun, [place] [id number] [facility] 103 Jun, Family history of malignant [facility] neoplasm of ovary Z80.41 [place], [place] [id number] and Leiomyoma of uterus, unspecified D25.9 [facility] Mar, [facility] neoplasm of ovary Z80.41 [place], [place] [id number] and Leiomyoma of uterus, unspecified D25.9 [facility] 103 Mar, Family history of malignant [facility] neoplasm of ovary Z80.41 ; [place], [place] [id number] Other specified abnormal uterine and vaginal bleeding N93.8 and Leiomyoma of uterus, unspecified D25.9 [facility] 103 Nov, Other abnormal [facility] inconclusive findings on [place], [place] [id number] diagnostic imaging of breast R92.8 [facility] 103 Nov, OBGYN [place] [id number] [facility] 103 Nov, [facility] (general) [place], [place] [id number] (routine) without abnormal findings Z01.419 ; Encounter for screening mammogram for malignant neoplasm of breast Z12.31 ; Frequency of micturition R35.0 ; Family history of malignant neoplasm of digestive organs Z80.0 ; Family history of malignant neoplasm of ovary Z80.41 and Leiomyoma of uterus, unspecified D25.9 [facility] 103 Nov, Family history of malignant [facility] neoplasm of ovary Z80.41 [place], [place] [id number] [facility] 103 Nov, [facility] (general) [place], [place] [id number] (routine) without abnormal findings Z01.419 ; Encounter for screening mammogram for malignant neoplasm of breast Z12.31 ; Family history of malignant neoplasm of digestive organs Z80.0 ; Family history of malignant neoplasm of ovary Z80.41 ; Dysmenorrhea, unspecified N94.6 and Other specified abnormal uterine and vaginal bleeding N93.8 [facility] 103 Nov, [facility] history of [facility] neoplasm of ovary Z80.41 [place] [id number] [facility] 103 Oct, Encounter for screening OBN [facility] mammogram for malignant [place], [place] [id number] neoplasm of breast Z12.31 [facility] 103 Apr, [place], [place] [id number] [facility] 103 Jan, Ovarian cyst NOS 620.2 OBGYN [place], [place] [id number] [facility] 103 Jan, FM HX OVARY MALIGNANCY OBGYN [facility] V16.41 and Ovarian cyst NOS [place], [place] [id number] 620.2 [facility] 103 December, FM HX OVARY MALIGNANCY OBGYN [facility] V16.41 and Ovarian cyst NOS [place], [place] [id number] [address] [facility] 103 December, [place] [id number] [facility] 103 Nov, Menometrorrhagia 626.2 OBGYN [place], [place] [id number] [facility] 103 Nov, ROUTINE SUPPLY CHAIN ASSISTANT EXAMINATION OBN [facility] V72.31 ; PAP SMEAR W/O SUPPLY CHAIN ASSISTANT [place], [place] [id number] EXAM V76.2 and Ovarian cyst NOS 620.2 [facility] 103 Nov, FM HX OVARY MALIGNANCY OBGYN [facility] V16.41 and Ovarian cyst NOS [place], [place] [id number] [address] [facility] 103 Nov, [place] [id number] [facility] 103 Sep, Mammogram-Abnormal 793.80 [place] [id number] [facility] 103 May, Inconclusive mammogram OBGYN [facility] 793.82 [place], [place] [id number] [facility] 103 May, FM HX OVARY MALIGNANCY OBGYN [place] [address] [place] [id number] [facility] 103 May, FM HX OVARY MALIGNANCY OBGYN [place] [address] [id number] [facility] 103 Apr, OBG[place] [id number] [facility] 103 Apr, [place]BG[place] [id number] [facility] 103 Nov, Breast Mass 611.72 [place]YN [place], [place] [id number] [facility] 103 Nov, [place] [id number] [facility] 103 Oct, ROUTINE SUPPLY CHAIN ASSISTANT EXAMINATION OBGYN [facility] V72.31 ; [place], [place] [id number] vulvovaginitis 112.1 ; Dysmenorrhea 625.3 ; FAMILY HX-GI MALIGNANCY V16.0 ; Ovarian cyst NOS 620.2 ; Breast Mass 611.72 ; PAP SMEAR W/O SUPPLY CHAIN ASSISTANT EXAM V76.2 ; FM HX OVARY MALIGNANCY V16.41 and VAGINAL DISCHARGE 623.5 [facility] 103 Oct, FM HX OVARY MALIGNANCY OBGYN [place] [address] [id number] [facility] 103 Oct, [place], [place] [id number] [facility] 103 Oct, OBG[place], [place] [id number] [facility] 103 Oct, OBGYN [place], [place] [id number] [facility] 103 Oct, Breast Mass 611.72 [place], [place] [id number] [facility] 103 Jun, O[place], [place] [id number] [facility] 103 May, OBG[place] [id number] [facility] 103 May, FM HX OVARY MALIGNANCY OBGYN [place] [address] [place] [id number] [facility] 103 May, Breast Mass 611.72 and FM OBGYN [facility] HX OVARY MALIGNANCY V16.[address] [place] [id number] [facility] 103 May, FM HX OVARY MALIGNANCY OBGYN [place] [address] [place] [id number] [facility] 103 Jan, O[place], [place] [id number] [facility] 103 Nov, [place], [place] [id number] [facility] 103 Nov, Ovarian cyst NOS 620.2 and OBGYN [facility] HX OVARY MALIGNANCY [place], [place] [id number] V16.41 [facility] 103 Nov, Ovarian cyst NOS 620.2 and OBGYN [facility] HX OVARY MALIGNANCY [place], [place] [address] V16.41 [facility] 103 Oct, OBG[place], [place] [id number] [facility] 103 Oct, [place]BG[place] [id number] [facility] 103 Oct, OBGYN [place], [place] [id number] [facility] 103 Sep, OBG[place], [place] [id number] [facility] 103 Sep, ROUTINE SUPPLY CHAIN ASSISTANT EXAMINATION OBGYN [facility] V72.31 ; FM HX OVARY [place], [place] [id number] MALIGNANCY V16.41 ; SCREEN MAMMOGRAM NEC V76.12 and Ovarian cyst NOS 620.2 [facility] 103 Sep, FM HX OVARY MALIGNANCY OBGYN [facility] V16.41 and Ovarian cyst NOS [place], [place] [id number] 620.2 [facility] 103 Mar, FM HX OVARY MALIGNANCY OBGYN [facility] V16.41 ; FAMILY HX-GI [place], [place] [id number] MALIGNANCY V16.0 and Dysmenorrhea 625.3 [facility] 103 Mar, FM HX OVARY MALIGNANCY OBGYN [facility] V16.41 [place], [place] [id number] [facility] 103 Sep, [place] [id number] [facility] 103 Sep, ROUTINE SUPPLY CHAIN ASSISTANT EXAMINATION OBGYN [facility] V72.31 ; FM HX OVARY [place], [place] [id number] MALIGNANCY V16.41 ; Candidal vulvovaginitis 112.1 and Dysmenorrhea 625.3 [facility] 103 Sep, FM HX OVARY MALIGNANCY OBGYN [facility] V16.41 [place], [place] [id number] [facility] 103 Sep, ROUTINE SUPPLY CHAIN ASSISTANT EXAMINATION OBGYN [facility] V72.31 ; FM HX OVARY [place], [place] [id number] MALIGNANCY V16.41 and Menometrorrhagia 626.2 [facility] 103 Sep, FM HX OVARY MALIGNANCY OBGYN [facility] V16.41 and Menometrorrhagia [place], [place] [id number] 626.2 [facility] 103 December, FAMILY HX-GI MALIGNANCY OBGYN [facility] V16.0 ; FM HX OVARY [place], [place] [id number] MALIGNANCY V16.41 ; Dysmenorrhea 625.3 and Menometrorrhagia 626.2 [facility] 103 Oct, [place]BG[place], [place] [id number] [facility] 103 Oct, FAMILY HX-GI MALIGNANCY OBGYN [facility] V16.0 and FM HX OVARY [place], [place] [id number] MALIGNANCY V16.41 [facility] 103 Oct, FM HX OVARY MALIGNANCY OBGYN [facility] V16.41 and Ovarian cyst NOS [place], [place] [id number] 620.2 [facility] 103 Sep, FAMILY HX-GI MALIGNANCY OBGYN [facility] V16.0 and FM HX OVARY [place], [place] [id number] MALIGNANCY V16.41 [facility] 103 Sep, ROUTINE SUPPLY CHAIN ASSISTANT EXAMINATION OBGYN [facility] V72.31 ; FAMILY HX-GI [place], [place] [id number] MALIGNANCY V16.0 and FM HX OVARY MALIGNANCY V16.41 [facility] 103 May, [place] [id number] [facility] 103 Jan, OBGYN [place], [place] [id number] [facility] 103 Jan, Menometrorrhagia 626.2 and OBGYN [facility] VULVAR LESION 624.9 [place], [place] [id number] [facility] 103 Jan, OBG[place], [place] [id number] [facility] 103 Oct, [place]BG[place], [place] [id number] [facility] 103 Oct, Menometrorrhagia 626.2 and OBGYN [facility] FAMILY HX-GI MALIGNANCY [place], [place] [id number] V16.0 [facility] 103 Oct, Menometrorrhagia 626.2 [place]YN [place] [id number] [facility] 103 18 Oct, 2008 Menometrorrhagia 626.2 [place] [id number] [facility] 103 Oct, OBG[place], [place] [id number] [facility] 103 Sep, OBG[place], [place] [id number] [facility] 103 Jun, OBGYN [place], [place] [id number] [facility] 103 May, Menometrorrhagia 626.2 ; [facility] HX OVARY MALIGNANCY V16.41 [place], [place] [id number] ; FAMILY HX-GI MALIGNANCY V16.0 and Dysmenorrhea 625.3 [facility] 103 May, Ovarian cyst NOS 620.2 ; [facility] HX OVARY MALIGNANCY V16.41 [place], [place] [id number] and FAMILY HX-GI MALIGNANCY V16.0 [facility] 103 Apr, ROUTINE SUPPLY CHAIN ASSISTANT EXAMINATION [facility] V72.31 [place] [place] [id number] [facility] 103 Mar, Menometrorrhagia 626.2 [facility] Endometrial polyp 621.0 [place], [place] [id number] [facility] 103 Feb, Menometrorrhagia 626.2 ; [facility] Endometrial polyp 621.0 and [place], [place] [id number] Stenosis of cervix 622.4 [facility] 103 Feb, Menometrorrhagia 626.2 ; [facility] Endometrial polyp 621.0 and [place], [place] [id number] Stenosis of cervix 622.4 [facility] 103 Jan, [place]BG[place], [place] [id number] [facility] 103 Jan, OBGYN [place], [place] [id number] [facility] 103 December, OBGYN [place], [place] [id number] [facility] 103 Nov, OBGYN [place], [place] [id number] [facility] 103 Nov, Menometrorrhagia 626.2 ; OBGYN [facility] Endometrial polyp 621.0 and [place], [place] [id number] Stenosis of cervix 622.4 [facility] 103 Nov, Menometrorrhagia 626.2 ; OBGYN [facility] Stenosis of cervix 622.4 [place], [place] [id number] and Endometrial polyp 621.0 [facility] 103 Oct, Menometrorrhagia 626.2 ; OBGYN [facility] Stenosis of cervix 622.4 [place], [place] [id number] and Endometrial polyp 621.0 [facility] 103 Oct, Menometrorrhagia 626.2 and OBGYN [facility] Stenosis of cervix 622.4 [place], [place] [id number] [facility] 103 Oct, Menometrorrhagia 626.2 and OBGYN [facility] Endometrial polyp 621.0 [place], [place] [id number] [facility] 103 Sep, [place] [id number] [facility] 103 Sep, Menometrorrhagia 626.2 [facility] Stenosis of cervix 622.4 [place], [place] [id number] [facility] 103 Sep, Menometrorrhagia 626.2 OBGYN [place], [place] [id number] [facility] 103 Aug, Menometrorrhagia 626.2 [place] [id number] [facility] 103 Mar, OBG[place], [place] [id number] [facility] 103 Feb, [place] [id number] [facility] 103 Jan, [place]BG[place], [place] [id number] [facility] 103 Jan, [place]BG[place], [place] [id number] [facility] 103 December, [place] [id number] [facility] 103 Nov, OBG[place], [place] [id number] [facility] 103 Nov, ROUTINE SUPPLY CHAIN ASSISTANT EXAMINATION OBGYN [facility] V72.31 ; FM HX OVARY [place], [place] [id number] MALIGNANCY V16.41 and FAMILY HX-GI MALIGNANCY V16.0 [facility] 103 Oct, [place]BG[place], [place] [id number] [facility] 103 Sep, [place], [place] [id number] [facility] 103 Sep, OBGYN [place], [place] [id number] [facility] 103 Jun, FM HX OVARY MALIGNANCY OBGYN [facility] V16.41 and FAMILY HX-GI [place], [place] [id number] MALIGNANCY V16.0 [facility] 103 Jun, OBGYN [place], [place] [id number] [facility] 103 May, FAMILY HX-GI MALIGNANCY OBGYN [facility] V16.0 and FM HX OVARY [place], [place] [id number] MALIGNANCY V16.41 [facility] 103 May, COUNSELING NOS V65.40 OBGYN [place], [place] [id number] [facility] 103 Sep, Well Adult exam V 70.0 ; OBGYN [facility] ROUTINE SUPPLY CHAIN ASSISTANT EXAMINATION [place], [place] [id number] V72.31 and Menorrhagia 626.2 IMMUNIZATIONS No Known Immunizations SOCIAL HISTORY Never Assessed REASON FOR REFERRAL FUNCTIONAL STATUS PLAN OF CARE VITAL SIGNS MEDICATIONS Medication Instructions Dosage Frequency Start Date End Date Duration Status ibuprofen 800 orally q 8 hrs 1 tab(s) May, Active mg prn 2018 ibuprofen 800 orally q8 hrs PRN 1 tab(s) Active mg PROCEDURES No Known procedures RESULTS No Results REASON FOR VISIT Insurance Providers [facility] Patient Patient Patient Patient Patient Subscriber Subscriber Subscriber Group Insurance Plan Plan Plan Plan ID Relationship Address Phone Name Date of ID Name Date of No Type Insurance Insurance Insurance Coverage to Subscriber Address Phone Name Dates Health Now [phone] [facility] Now [place] [id number] [facility] [address] [id number] Health Now [phone] [facility] [place] [id number] [facility] [address] [address] [employer] [phone] [employer] self [place] [phone] [place] [phone] [employer] 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 Increased colon cancer risk. Surgical History Surgical History Hysteroscopy/Site directed EMB 11/18/07 Surgical History HTA 02/17/08 Surgical History US-guided diagnostic hysteroscopy D&C. 05/13/18 Hospitalization History see above
--- OUTSIDE RECORDS SUMMARY | 2019-10-07 08:22 | XMS REPORT ---
:1970 Author Organization [facility] Address [address] [place] [address] Care Team Providers Name Role Phone Rola Calvo Unavailable Unavailable PROBLEMS Type Condition ICD9-CM [id number] Onset Condition SNOMED Code Code Code Dates Status Problem Dysmenorrhea, N94.6 Active 597553454 unspecified Problem Family history of Z80.0 Active 642251653 malignant neoplasm of digestive organs Problem Other specified N93.8 Active 090462574 abnormal uterine and vaginal bleeding Problem Leiomyoma of D25.9 Active 17095641 uterus, unspecified Problem Family history of Z80.41 Active 456090288 malignant neoplasm of ovary Problem Unspecified N83.201 Active [id number] ovarian cyst, right side Problem Family history of Z80.3 Active 491812417 malignant neoplasm of breast Problem Inconclusive R92.2 Active 51385885 mammogram Problem Foreign body in T19.2XXA Active 380922976 vulva and vagina, initial encounter Problem Excessive and N92.0 Active 544902608 frequent menstruation with regular cycle Problem Low back pain M54.5 Active 768604565 Problem Other abnormal and R92.8 Active 158729641 inconclusive findings on diagnostic imaging of breast Problem Excessive and N92.0 Active 836767540 frequent menstruation Problem 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 Problem 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 stenosis of cervix uteri Problem Unspecified N83.202 Active [id number] ovarian cyst, left side ALLERGIES No Information ENCOUNTERS Encounter Location Date Diagnosis [facility] 103 December, [place] [id number] [facility] December, [place] [id number] [facility] 103 Sep, [place] [id number] [facility] 103 Sep, [place] [id number] [facility] 103 Sep, Acute vaginitis N76.0 [place] [id number] [facility] Sep, Low back pain M54.5 ; [facility] N76.0 and Foreign [place], [place] 100872730 body in vulva and vagina, initial encounter T19.2XXA [facility] 103 Aug, [place] [id number] [facility] 103 Aug, Family history of malignant [facility] neoplasm of breast Z80.3 [place], [place] [id number] [facility] 103 Aug, Unspecified ovarian cyst, [facility] left side N83.202 ; [place], [place] [id number] Leiomyoma of uterus, unspecified D25.9 and Family history of malignant neoplasm of breast Z80.3 [facility] 103 Aug, Unspecified ovarian cyst, [facility] N83.202 and [place], [place] [id number] Leiomyoma of uterus, unspecified D25.9 [facility] 103 May, [place] [id number] [facility] 103 May, Unspecified ovarian cyst, [facility] right side N83.201 ; [place], [place] [id number] Unspecified ovarian cyst, left side N83.202 ; Excessive and frequent menstruation with regular cycle N92.0 and Leiomyoma of uterus, unspecified D25.9 [facility] 103 May, Unspecified ovarian cyst, OBGYN [facility] right side N83.201 ; [place], [place] [id number] Leiomyoma of uterus, unspecified D25.9 and Excessive and frequent menstruation with regular cycle N92.0 [facility] 103 December, [facility] [place] [id number] (routine) with abnormal findings Z01.411 ; Encounter [...] and Unspecified ovarian cyst, right side N83.201 [facility] 103 December, [facility] history of [facility] neoplasm of ovary Z80.41 [place] [id number] and Leiomyoma of uterus, unspecified D25.9 [facility] 103 Aug, OBGYN [place] [id number] [address] Jun, Excessive and frequent [address] [place], menstruation with regular [place] [id number] cycle N92.0 ; Leiomyoma of uterus, unspecified D25.9 ; Family history of malignant neoplasm of breast Z80.3 ; Other abnormal and inconclusive findings on diagnostic imaging of breast R92.8 ; Genetic susceptibility to other malignant neoplasm Z15.09 ; Family history of malignant neoplasm of ovary Z80.41 and Family history of malignant neoplasm of digestive organs Z80.0 [facility] 103 Jun, [facility] of breast Z80.3 [place], [place] [id number] and Displacement of intrauterine contraceptive device, initial encounter T83.32XA [facility] [address] Apr, Excessive and frequent Medical Center [place] [address] menstruation with regular cycle N92.0 ; Dysmenorrhea, unspecified N94.6 and Stricture and stenosis of cervix uteri N88.2 [facility] 103 Apr, OBGYN [place] [id number] [facility] 103 Apr, Excessive and frequent OBGYN [facility] menstruation with regular [place], [place] [id number] cycle N92.0 ; Stricture and stenosis of cervix uteri N88.2 and Noninflammatory disorder of vagina, unspecified N89.9 [facility] Mar, [place] [id number] [facility] 103 Mar, [place] [id number] [facility] 103 Mar, Excessive and frequent OBGYN [facility] menstruation with regular [place], [place] [id number] cycle N92.0 ; Other abnormal and inconclusive findings on diagnostic imaging of breast R92.8 ; Leiomyoma of uterus, unspecified D25.9 ; Genetic susceptibility to other malignant neoplasm Z15.09 ; Family history of malignant neoplasm of ovary Z80.41 ; Family history of malignant neoplasm of breast Z80.3 and Family history of malignant neoplasm of digestive organs Z80.0 [facility] 103 Feb, Excessive and frequent OBGYN [facility] menstruation with regular [place], [place] 311617158 cycle N92.0 [facility] 103 Feb, Excessive and frequent OBGYN [facility] menstruation with regular [place], [place] [id number] cycle N92.0 [facility] 103 Feb, Excessive and frequent OBGYN [facility] menstruation with regular [place], [place] 95765[address] cycle N92.0 [facility] 103 Feb, [facility]cessive and [facility] with regular [place] 7579[address] cycle N92.0 ; Leiomyoma of uterus, unspecified D25.9 and Other specified abnormal uterine and vaginal bleeding N93.8 [facility] Jan, [place]BG[place] [id number] [facility] 103 Jan, [place] [id number] [facility] Jan, Other abnormal and [facility] inconclusive findings on [place] [address]137867[address] diagnostic imaging of breast R92.8 [facility] Jan, Excessive and frequent [facility] N92.0 [place] [id number] [facility] Jan, Excessive and frequent [facility]ation with regular [place] 555[address] cycle N92.0 ; Family history of malignant neoplasm of digestive organs Z80.0 ; Family history of malignant neoplasm of ovary Z80.41 ; Family history of malignant neoplasm of breast Z80.3 and Unspecified ovarian cyst, right side N83.201 [facility] Jan, Leiomyoma of uterus, [facility] unspecified D25.9 ; Other [place] 0728[address] specified abnormal uterine and vaginal bleeding N93.8 ; Family history of malignant neoplasm of ovary Z80.41 and Excessive and frequent menstruation with regular cycle N92.0 [facility] 103 December, [facility] R92.2 [place] [id number] [facility] December, [facility] [place], [place] [id number] (routine) without abnormal findings Z01.419 ; Encounter [...] of breast Z80.3 and Dysmenorrhea, unspecified N94.6 [facility] 103 December, Family history of malignant [facility] neoplasm of ovary Z80.41 [place] [address] and Leiomyoma of uterus, unspecified D25.9 [facility] 103 Nov, [place], [place] [id number] [facility] 103 Jun, [place] [id number] [facility] 103 Jun, Family history of [facility] neoplasm of ovary Z80.41 [place] [address]08[address] and Leiomyoma of uterus, unspecified D25.9 [facility] 103 Mar, Family history of malignant [facility] neoplasm of ovary Z80.41 [place], [place] [address] and Leiomyoma of uterus, unspecified D25.9 [facility] 103 Mar, Family history of malignant [facility] neoplasm of ovary Z80.41 ; [place], [place] [id number] Other specified abnormal uterine and vaginal bleeding N93.8 and Leiomyoma of uterus, unspecified D25.9 [facility] 103 24 Nov, 2016 Other abnormal [facility] incon[facility] findings on [place] [address]85[address] diagnostic imaging of breast R92.8 [facility] 103 13 Nov, 2016 [place]BGYN [place] [id number] [facility] 103 10 Nov, 2016 [facility] [place] [id number] (routine) without abnormal findings Z01.419 ; Encounter for screening mammogram for malignant neoplasm of breast Z12.31 ; Frequency of micturition R35.0 ; Family history of malignant neoplasm of digestive organs Z80.0 ; Family history of malignant neoplasm of ovary Z80.41 and Leiomyoma of uterus, unspecified D25.9 [facility] 103 Nov, Family history of malignant [facility] neoplasm of ovary Z80.41 [place], [place] [id number] [facility] 103 Nov, [facility] [place] [id number] (routine) without abnormal findings Z01.419 ; Encounter for screening mammogram for malignant neoplasm of breast Z12.31 ; Family history of malignant neoplasm of digestive organs Z80.0 ; Family history of malignant neoplasm of ovary Z80.41 ; Dysmenorrhea, unspecified N94.6 and Other specified abnormal uterine and vaginal bleeding N93.8 [facility] 103 Nov, Family history of malignant [facility] neoplasm of ovary Z80.41 [place], [place] [id number] [facility] Oct, [facility] for malignant [place] 1564[address]657 neoplasm of breast Z12.31 [facility] 08 Apr, 2015 [place] [id number] [facility] 103 Jan, Ovarian cyst NOS 620.2 [place] [id number] [facility] 103 Jan, FM HX OVARY [facility]IGNANCY [facility] V[facility].41 and Ovarian cyst NOS [place] [address]108023[address] 620.2 [facility] 103 December, FM HX OVARY [facility]NANCY [facility] V16.41 and Ovarian cyst NOS [place], [place] 017111722 620.2 [facility] 103 December, [place] [id number] [facility] 103 Nov, Menometrorrhagia 626.2 [place] [id number] [facility] 103 Nov, ROUTINE PEARL GLUE OPERATOR EXAMINATION OBGYN [facility] V72.31 ; PAP SMEAR W/O PEARL GLUE OPERATOR [place], [place] [id number] EXAM V76.2 and Ovarian cyst NOS 620.2 [facility] 103 Nov, FM HX OVARY MALIGNANCY OBGYN [facility] V16.41 and Ovarian cyst NOS [place], [place] [id number] 620.2 [facility] 103 Nov, [place] [id number] [facility] 103 Sep, Mammogram-Abnormal 793.80 [place] 1960713[address] [facility] 103 May, Inconclusive mammogram OBGYN [facility] 793.82 [place], [place] [id number] [facility] 103 May, FM HX OVARY MALIGNANCY OBG[place] [id number] [id number] [facility] 103 May, FM HX OVARY MALIGNANCY OBGYN [address] [id number] [facility] 103 Apr, [place] [id number] [facility] 103 Apr, [place] [id number] [facility] 103 Nov, Breast Mass 611.72 [place], [place] [id number] [facility] 103 Nov, [place] [id number] [facility] 103 Oct, ROUTINE PEARL GLUE OPERATOR EXAMINATION OBGYN [facility] V72.31 ; Candidal [place], [place] [id number] vulvovaginitis 112.1 ; Dysmenorrhea 625.3 ; FAMILY HX-GI MALIGNANCY V16.0 ; Ovarian cyst NOS 620.2 ; Breast Mass 611.72 ; PAP SMEAR W/O PEARL GLUE OPERATOR EXAM V76.2 ; FM HX OVARY MALIGNANCY V16.41 and VAGINAL DISCHARGE 623.5 [facility] 103 Oct, FM HX OVARY MALIGNANCY OBGYN [facility] V16.41 [place], [place] [id number] [facility] 103 Oct, [place] [id number] [facility] 103 Oct, [place]BG[place] [address] [facility] 103 Oct, [place] [id number] [facility] 103 Oct, Breast Mass 611.72 [place] [id number] [facility] 103 Jun, [place] [id number] [facility] May, [place] [id number] [facility] 103 May, FM HX OVARY MALIGNANCY OBG[facility] [place] [address] [place] [id number] [facility] 103 May, Breast Mass 611.72 and FM OBGYN [facility] HX OVARY MALIGNANCY V16.41 [place], [place] [id number] [facility] 103 May, FM HX OVARY MALIGNANCY OBN [place] [address] [place] [id number] [facility] 103 Jan, [place] [id number] [facility] 103 Nov, [place] [id number] [facility] 103 Nov, Ovarian cyst NOS 620.2 and OBGYN [facility] FM HX OVARY MALIGNANCY [place], [place] 861925613 V16.41 [facility] 103 Nov, Ovarian cyst NOS 620.2 and OBGYN [facility] FM HX OVARY MALIGNANCY [place], [place] [id number] V16.41 [facility] 103 Oct, [place] [id number] [facility] 103 Oct, [place], [place] [id number] [facility] 103 Oct, [place] [id number] [facility] 103 Sep, [place] [id number] [facility] 103 Sep, ROUTINE PEARL GLUE OPERATOR EXAMINATION [facility] V72.31 ; FM HX OVARY [place], [place] [id number] MALIGNANCY V16.41 ; SCREEN MAMMOGRAM NEC V76.12 and Ovarian cyst NOS 620.2 [facility] 103 Sep, FM HX OVARY MALIGNANCY OBGYN [facility] V16.41 and Ovarian cyst NOS [place], [place] 927954830 620.2 [facility] 103 Mar, FM HX OVARY MALIGNANCY OBGYN [facility] V16.41 ; FAMILY HX-GI [place], [place] [id number] MALIGNANCY V16.0 and Dysmenorrhea 625.3 [facility] 103 Mar, FM HX OVARY MALIGNANCY OBGYN [facility] V16.41 [place], [place] [id number] [facility] 103 Sep, [place] [id number] [facility] 103 Sep, ROUTINE PEARL GLUE OPERATOR EXAMINATION OBGYN [facility] V72.31 ; FM HX OVARY [place], [place] [id number] MALIGNANCY V16.41 ; Candidal vulvovaginitis 112.1 and Dysmenorrhea 625.3 [facility] 103 13 Sep, 2011 FM HX OVARY MALIGNANCY OBGYN [facility] V16.41 [place], [place] [id number] [facility] 103 Sep, ROUTINE PEARL GLUE OPERATOR EXAMINATION OBGYN [facility] V72.31 ; FM HX OVARY [place], [place] [id number] MALIGNANCY V16.41 and Menometrorrhagia 626.2 [facility] 103 Sep, FM HX OVARY MALIGNANCY OBGYN [facility] V16.41 and Menometrorrhagia [place], [place] [id number] 626.2 [facility] December, FAMILY HX-GI MALIGNANCY OBGYN [facility] V16.0 ; FM HX OVARY [place], [place] [id number] MALIGNANCY V16.41 ; Dysmenorrhea 625.3 and Menometrorrhagia 626.2 [facility] 103 Oct, [place] [id number] [facility] 103 Oct, FAMILY HX-GI MALIGNANCY OBGYN [facility] V16.0 and FM HX OVARY [place], [place] [id number] MALIGNANCY V16.41 [facility] 103 Oct, FM HX OVARY MALIGNANCY OBGYN [facility] V16.41 and Ovarian cyst NOS [place], [place] [id number] 620.2 [facility] 103 Sep, FAMILY HX-GI MALIGNANCY OBGYN [facility] V16.0 and FM HX OVARY [place], [place] [id number] MALIGNANCY V16.41 [facility] 103 Sep, ROUTINE PEARL GLUE OPERATOR EXAMINATION OBGYN [place] 025692. ; FAMILY HX-GI [place], [place] [id number] MALIGNANCY V16.0 and FM HX OVARY MALIGNANCY V16.41 [facility] 103 May, [place] [id number] [facility] 103 Jan, [place] [id number] [facility] 103 Jan, Menometrorrhagia 626.2 and OBGYN [facility] VULVAR LESION 624.9 [place], [place] [id number] [facility] 103 Jan, [place], [place] [id number] [facility] 103 Oct, [place], [place] [id number] [facility] 103 Oct, Menometrorrhagia 626.2 and OBGYN [facility] FAMILY HX-GI MALIGNANCY [place], [place] [id number] V16.0 [facility] 103 Oct, Menometrorrhagia 626.2 [place] [id number] [facility] 103 Oct, Menometrorrhagia 626.2 [place] [id number] [facility] 103 Oct, [place] [id number] [facility] 103 Sep, [place] [id number] [facility] 103 Jun, [place], [place] [id number] [facility] 103 May, Menometrorrhagia 626.2 ; FM OBGYN [facility] HX OVARY MALIGNANCY V16.41 [place], [place] [id number] ; FAMILY HX-GI MALIGNANCY V16.0 and Dysmenorrhea 625.3 [facility] 103 May, Ovarian cyst NOS 620.2 ; FM OBGYN [facility] HX OVARY MALIGNANCY V16.41 [place], [place] [id number] and FAMILY HX-GI MALIGNANCY V16.0 [facility] 103 30 Apr, 2008 ROUTINE PEARL GLUE OPERATOR EXAMINATION [facility] V72.31 [place], [place] [id number] [facility] 103 11 Mar, 2008 Menometrorrhagia 626.2 and OBGYN [facility] Endometrial polyp 621.0 [place], [place] [id number] [facility] 103 Feb, Menometrorrhagia 626.2 ; OBGYN [facility] Endometrial polyp 621.0 and [place], [place] [id number] Stenosis of cervix 622.4 [facility] 103 Feb, Menometrorrhagia 626.2 ; [facility] Endometrial polyp 621.0 and [place], [place] [id number] Stenosis of cervix 622.4 [facility] 103 Jan, [place] [id number] [facility] 103 Jan, [place] [id number] [facility] 103 December, [place], [place] [id number] [facility] 103 Nov, [place], [place] [id number] [facility] 103 Nov, Menometrorrhagia 626.2 ; OBGYN [facility] Endometrial polyp 621.0 and [place], [place] [id number] Stenosis of cervix 622.4 [facility] 103 Nov, Menometrorrhagia 626.2 ; OBGYN [facility] Stenosis of cervix 622.4 [place], [place] [id number] and Endometrial polyp 621.0 [facility] 103 Oct, Menometrorrhagia 626.2 ; OBGYN [facility] Stenosis of cervix 622.4 [place], [place] [id number] and Endometrial polyp 621.0 [facility] 103 Oct, Menometrorrhagia 626.2 and OBGYN [facility] Stenosis of cervix 622.4 [place], [place] [id number] [facility] 103 Oct, Menometrorrhagia 626.2 and OBGYN [facility] Endometrial polyp 621.0 [place], [place] [id number] [facility] 103 Sep, [place] [id number] [facility] 103 Sep, Menometrorrhagia 626.2 and OBN [facility] Stenosis of cervix 622.4 [place], [place] [id number] [facility] 103 Sep, Menometrorrhagia 626.2 [place] [id number] [facility] 103 Aug, Menometrorrhagia 626.2 [place] [id number] [facility] 103 Mar, [place] [id number] [facility] 103 Feb, [place] [id number] [facility] 103 Jan, [place] [id number] [facility] 103 Jan, [place] [id number] [facility] 103 December, [place] [id number] [facility] 103 Nov, [place] [id number] [facility] 103 Nov, ROUTINE PEARL GLUE OPERATOR EXAMINATION OBGYN [facility] V72.31 ; FM HX OVARY [place], [place] [id number] MALIGNANCY V16.41 and FAMILY HX-GI MALIGNANCY V16.0 [facility] 103 Oct, [place], [place] [id number] [facility] 103 Sep, [place] [id number] [facility] 103 Sep, [place] [id number] [facility] 103 Jun, FM HX OVARY MALIGNANCY OBGYN [facility] V16.41 and FAMILY HX-GI [place], [place] [id number] MALIGNANCY V16.0 [facility] 103 Jun, [place] [id number] [facility] 103 May, FAMILY HX-GI MALIGNANCY OBGYN [facility] V16.0 and FM HX OVARY [place], [place] [id number] MALIGNANCY V16.41 [facility] 103 May, COUNSELING NOS V65.40 [place] [id number] [facility] 103 Sep, Well Adult exam V 70.0 ; OBGYN [facility] ROUTINE PEARL GLUE OPERATOR EXAMINATION [place], [place] [id number] V72.31 and Menorrhagia 626.2 IMMUNIZATIONS No Known Immunizations SOCIAL HISTORY Never Assessed REASON FOR REFERRAL FUNCTIONAL STATUS PLAN OF CARE VITAL SIGNS MEDICATIONS Unknown Medications PROCEDURES No Known procedures RESULTS No Results REASON FOR VISIT Test results Insurance Providers [facility] Member Patient Patient Patient Patient Patient Subscriber Subscriber Subscriber Group Insurance Plan Plan Plan Plan ID Relationship Address Phone Name Date of ID Name Date of No Type Insurance Insurance Insurance Coverage to Subscriber Address Phone Name Dates [employer] [address] MAURICIO Phillips [id number] [place] [phone] [facility] [address] [id number] [facility] 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 Increased colon cancer risk. Surgical History Surgical History Hysteroscopy/Site directed EMB 11/18/07 Surgical History HTA 02/17/08 Surgical History US-guided diagnostic hysteroscopy D&C. 05/13/18 Hospitalization History see above
--- OUTSIDE RECORDS SUMMARY | 2019-10-07 08:22 | XMS REPORT ---
:1970 Author Name Tami Artis Address [address] [place] [address] Care Team Providers Name Role Phone Tami Artis Unavailable Unavailable PROBLEMS Type Condition ICD9-CM [id number] Onset Condition SNOMED Code Code Code Dates Status Problem Dysmenorrhea, N94.6 Active 409557213 unspecified Problem Family history of Z80.0 Active 847695488 malignant neoplasm of digestive organs Problem Other specified N93.8 Active 398626470 abnormal uterine and vaginal bleeding Problem Other abnormal and R92.8 Active 451780394 inconclusive findings on diagnostic imaging of breast Problem Unspecified N83.201 Active [id number] ovarian cyst, right side Problem Family history of Z80.3 Active 855880908 malignant neoplasm of breast Problem 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 48159988 stenosis of cervix uteri Problem Leiomyoma of D25.9 Active 11192062 uterus, unspecified Problem Unspecified N83.202 Active [id number] ovarian cyst, left side Problem Family history of Z80.41 Active 205635820 malignant neoplasm of ovary Problem Excessive and N92.0 Active 797777380 frequent menstruation with regular cycle Problem Inconclusive R92.2 Active 21631741 mammogram Problem Excessive and N92.0 Active 393079268 frequent menstruation Problem 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 103 December, OBG[place] [id number] [facility] 103 December, [place] [id number] [facility] 103 Aug, [place], [place] [id number] [facility] 103 Aug, Unspecified ovarian cyst, [facility] left side N83.202 ; [place], [place] [id number] Leiomyoma of uterus, unspecified D25.9 and Family history of malignant neoplasm of breast Z80.3 [facility] 103 Aug, Unspecified ovarian cyst, [facility] left side N83.202 and [place], [place] [id number] Leiomyoma of uterus, unspecified D25.9 [facility] 103 May, [place], [place] [id number] [facility] 103 May, Unspecified ovarian cyst, [facility] right side N83.201 ; [place], [place] [id number] Unspecified ovarian cyst, left side N83.202 ; Excessive and frequent menstruation with regular cycle N92.0 and Leiomyoma of uterus, unspecified D25.9 [facility] 103 May, Unspecified ovarian cyst, [facility] right side N83.201 ; [place], [place] [id number] Leiomyoma of uterus, unspecified D25.9 and Excessive and frequent menstruation with regular cycle N92.0 [facility] 103 December, Encounter for gynecological [facility] examination (general) [place], [place] [id number] (routine) with abnormal findings Z01.411 ; Encounter [...] [facility] 103 December, Family history of malignant [facility] neoplasm of ovary Z80.41 [place], [place] [id number] and Leiomyoma of uterus, unspecified D25.9 [facility] 103 Aug, OBGYN [place], [place] [id number] [address] Jun, Excessive and frequent [address] [place], menstruation with regular [place] [id number] cycle N92.0 ; Leiomyoma of uterus, unspecified D25.9 ; Family history of malignant neoplasm of breast Z80.3 ; Other abnormal and inconclusive findings on diagnostic imaging of breast R92.8 ; Genetic susceptibility to other malignant neoplasm Z15.09 ; Family history of malignant neoplasm of ovary Z80.41 and Family history of malignant neoplasm of digestive organs Z80.0 [facility] 103 Jun, Family history of malignant [facility] neoplasm of breast Z80.3 [place], [place] [id number] and Displacement of intrauterine contraceptive device, initial encounter T83.32XA [facility] [address] Apr, Excessive and frequent [facility] [place] [id number] menstruation with regular cycle N92.0 ; Dysmenorrhea, unspecified N94.6 and Stricture and stenosis of cervix uteri N88.2 [facility] 103 Apr, OBGYN [place], [place] [id number] [facility] 103 Apr, Excessive and frequent OBGYN [facility] menstruation with regular [place], [place] [id number] cycle N92.0 ; Stricture and stenosis of cervix uteri N88.2 and Noninflammatory disorder of vagina, unspecified N89.9 [facility] 103 Mar, OBGYN [place], [place] [id number] [facility] 103 Mar, OBGYN [place], [place] [id number] [facility] 103 Mar, Excessive and frequent OBGYN [facility] menstruation with regular [place], [place] [id number] cycle N92.0 ; Other abnormal and inconclusive findings on diagnostic imaging of breast R92.8 ; Leiomyoma of uterus, unspecified D25.9 ; Genetic susceptibility to other malignant neoplasm Z15.09 ; Family history of malignant neoplasm of ovary Z80.41 ; Family history of malignant neoplasm of breast Z80.3 and Family history of malignant neoplasm of digestive organs Z80.0 [facility] 103 Feb, Excessive and frequent OBGYN [facility] menstruation with regular [place], [place] [id number] cycle N92.0 [facility] 103 Feb, Excessive and frequent OBGYN [facility] menstruation with regular [place], [place] [id number] cycle N92.0 [facility] 103 Feb, Excessive and frequent OBGYN [facility] menstruation with regular [place] [id number] cycle N92.0 [facility] 103 Feb, Excessive and frequent OBGYN [facility] menstruation with regular [place], [place] [id number] cycle N92.0 ; Leiomyoma of uterus, unspecified D25.9 and Other specified abnormal uterine and vaginal bleeding N93.8 [facility] 103 Jan, OBGYN [place], [place] [id number] [facility] 103 Jan, OBGYN [place], [place] [id number] [facility] 103 Jan, Other abnormal and OBGYN [facility] inconclusive findings on [place], [place] [id number] diagnostic imaging of breast R92.8 [facility] 103 Jan, Excessive and frequent OBGYN [facility] menstruation N92.0 [place] [id number] [facility] 103 Jan, Excessive and frequent OBGYN [facility] menstruation with regular [place], [place] [id number] cycle N92.0 ; Family history of malignant neoplasm of digestive organs Z80.0 ; Family history of malignant neoplasm of ovary Z80.41 ; Family history of malignant neoplasm of breast Z80.3 and Unspecified ovarian cyst, right side N83.[address] [facility] 103 Jan, Leiomyoma of uterus, [facility] unspecified D25.9 ; Other [place] [id number] specified abnormal uterine and vaginal bleeding N93.8 ; Family history of malignant neoplasm of ovary Z80.41 and Excessive and frequent menstruation with regular cycle N92.0 [facility] 103 December, Inconclusive mammogram [facility] R92.2 [place], [place] [id number] [facility] 103 December, Encounter for gynecological [facility] examination (general) [place], [place] [id number] (routine) without abnormal findings Z01.419 ; Encounter [...] [facility] 103 December, Family history of malignant [facility] neoplasm of ovary Z80.41 [place], [place] [id number] and Leiomyoma of uterus, unspecified D25.9 [facility] 103 Nov, [place] [id number] [facility] 103 Jun, [place] [id number] [facility] 103 Jun, Family history of malignant [facility] neoplasm of ovary Z80.41 [place], [place] [id number] and Leiomyoma of uterus, unspecified D25.9 [facility] 103 Mar, [facility] history of [facility] neoplasm of ovary Z80.41 [place], [place] [id number] and Leiomyoma of uterus, unspecified D25.9 [facility] 103 Mar, Family history of malignant [facility] neoplasm of ovary Z80.41 ; [place], [place] [id number] Other specified abnormal uterine and vaginal bleeding N93.8 and Leiomyoma of uterus, unspecified D25.9 [facility] 103 Nov, Other abnormal [facility] incon[facility] findings on [place] [id number] diagnostic imaging of breast R92.8 [facility] 103 13 Nov, 2016 [place]BG[place] [id number] [facility] 103 Nov, Encounter for [facility]necological [facility] examination (general) [place], [place] [id number] (routine) without abnormal findings Z01.419 ; Encounter for screening mammogram for malignant neoplasm of breast Z12.31 ; Frequency of micturition R35.0 ; Family history of malignant neoplasm of digestive organs Z80.0 ; Family history of malignant neoplasm of ovary Z80.41 and Leiomyoma of uterus, unspecified D25.9 [facility] 103 Nov, Family history of malignant [facility] neoplasm of ovary Z80.41 [place], [place] [id number] [facility] 103 Nov, [facility]) [place], [place] [id number] (routine) without abnormal findings Z01.419 ; Encounter for screening mammogram for malignant neoplasm of breast Z12.31 ; Family history of malignant neoplasm of digestive organs Z80.0 ; Family history of malignant neoplasm of ovary Z80.41 ; Dysmenorrhea, unspecified N94.6 and Other specified abnormal uterine and vaginal bleeding N93.8 [facility] 103 Nov, Family history of malignant [facility] neoplasm of ovary Z80.41 [place] [id number] [facility] 17 Oct, 2015 Encounter for screening OBN [facility] mammogram for malignant [place], [place] [id number] neoplasm of breast Z12.31 [facility] 103 Apr, OBG[place] [id number] [facility] 103 Jan, Ovarian cyst NOS 620.2 [place]BG[place] [id number] [facility] 103 Jan, FM HX OVARY MALIGNANCY OBGYN [facility] V16.41 and Ovarian cyst NOS [place], [place] [id number] 620.2 [facility] 103 December, FM HX OVARY MALIGNANCY OBGYN [facility] V16.41 and Ovarian cyst NOS [place], [place] [id number] 620.2 [facility] 103 December, OBG[place] [id number] [facility] 103 Nov, Menometrorrhagia 626.2 [place]BGYN [place] [id number] [facility] 103 Nov, ROUTINE ENGINE REPAIRER SERVICE EXAMINATION [facility] V72.31 ; PAP SMEAR W/O ENGINE REPAIRER SERVICE [place], [place] [id number] EXAM V76.2 and Ovarian cyst NOS 620.[address] [facility] 103 Nov, FM HX OVARY MALIGNANCY OBGYN [facility] V16.41 and Ovarian cyst NOS [place], [place] [id number] 620.2 [facility] 103 Nov, OBGYN [place] [id number] [facility] 103 Sep, Mammogram-Abnormal 793.80 [place] [id number] [facility] 103 May, Inconclusive mammogram OBGYN [facility] 793.82 [place] [id number] [facility] 103 May, FM HX OVARY MALIGNANCY OBGYN [place] [address] [place] [id number] [facility] 103 May, FM HX OVARY MALIGNANCY OBGYN [place] [address] [place] [id number] [facility] 103 Apr, OBG[place] [id number] [facility] 103 Apr, OBG[place] [id number] [facility] 103 Nov, Breast Mass 611.72 [place]BGYN [place] [id number] [facility] 103 Nov, OBG[place] [id number] [facility] 103 Oct, ROUTINE ENGINE REPAIRER SERVICE EXAMINATION [facility] V72.31 ; [place] [address] vulvovaginitis 112.1 ; Dysmenorrhea 625.3 ; FAMILY HX-GI MALIGNANCY V16.0 ; Ovarian cyst NOS 620.2 ; Breast Mass 611.72 ; PAP SMEAR W/O ENGINE REPAIRER SERVICE EXAM V76.2 ; FM HX OVARY MALIGNANCY V16.41 and VAGINAL DISCHARGE 623.5 [facility] 103 Oct, FM HX OVARY MALIGNANCY OBGYN [place] [id number] [id number] [facility] 103 Oct, OBG[place] [id number] [facility] 103 Oct, OBG[place] [id number] [facility] 103 Oct, OBG[place] [id number] [facility] 103 Oct, Breast Mass 611.72 [place]BGYN [place], [place] [id number] [facility] 103 Jun, OBG[place] [id number] [facility] 103 May, OBG[place], [place] [id number] [facility] 103 May, FM HX OVARY MALIGNANCY OBGYN [place] [address] [place] [id number] [facility] 103 May, Breast Mass 611.72 and FM OBGYN [facility] HX OVARY MALIGNANCY V16.[address] [place] [id number] [facility] 103 May, FM HX OVARY MALIGNANCY OBGYN [place] [address] [place] [id number] [facility] 103 Jan, OBG[place] [id number] [facility] 103 Nov, OBGYN [place] [id number] [facility] 103 Nov, Ovarian cyst NOS 620.2 and OBGYN [facility] HX OVARY MALIGNANCY [place], [place] [id number] V16.41 [facility] 103 Nov, Ovarian cyst NOS 620.2 and OBGYN [facility] HX OVARY MALIGNANCY [place], [place] [id number] V16.41 [facility] 103 Oct, OBGYN [place], [place] [id number] [facility] 103 Oct, [place]BGYN [place] [id number] [facility] 103 Oct, OBGYN [place] [id number] [facility] 103 Sep, OBGYN [place], [place] [id number] [facility] 103 Sep, ROUTINE ENGINE REPAIRER SERVICE EXAMINATION OBGYN [facility] V72.31 ; FM HX OVARY [place], [place] [id number] MALIGNANCY V16.41 ; SCREEN MAMMOGRAM NEC V76.12 and Ovarian cyst NOS 620.2 [facility] 103 Sep, FM HX OVARY MALIGNANCY OBGYN [facility] V16.41 and Ovarian cyst NOS [place], [place] [id number] 620.2 [facility] 103 Mar, FM HX OVARY MALIGNANCY OBGYN [facility] V16.41 ; FAMILY HX-GI [place], [place] [id number] MALIGNANCY V16.0 and Dysmenorrhea 625.3 [facility] 103 Mar, FM HX OVARY MALIGNANCY OBGYN [facility] V16.41 [place], [place] [id number] [facility] 103 Sep, OBGYN [place] [id number] [facility] 103 Sep, ROUTINE ENGINE REPAIRER SERVICE EXAMINATION [facility] V72.31 ; FM HX OVARY [place], [place] [id number] MALIGNANCY V16.41 ; Candidal vulvovaginitis 112.1 and Dysmenorrhea 625.3 [facility] 103 Sep, FM HX OVARY MALIGNANCY OBGYN [facility] V16.41 [place] [id number] [facility] 103 Sep, ROUTINE ENGINE REPAIRER SERVICE EXAMINATION OBGYN [facility] V72.31 ; FM HX OVARY [place], [place] [id number] MALIGNANCY V16.41 and Menometrorrhagia 626.2 [facility] 103 Sep, FM HX OVARY MALIGNANCY OBGYN [facility] V16.41 and Menometrorrhagia [place] [id number] 626.2 [facility] 103 December, FAMILY HX-GI MALIGNANCY OBGYN [facility] V16.0 ; FM HX OVARY [place], [place] [id number] MALIGNANCY V16.41 ; Dysmenorrhea 625.3 and Menometrorrhagia 626.2 [facility] 103 Oct, OBG[place], [place] [id number] [facility] 103 Oct, FAMILY HX-GI MALIGNANCY OBGYN [facility] V16.0 and FM HX OVARY [place], [place] [id number] MALIGNANCY V16.41 [facility] 103 Oct, FM HX OVARY MALIGNANCY OBGYN [facility] V16.41 and Ovarian cyst NOS [place], [place] [id number] 620.2 [facility] 103 Sep, FAMILY HX-GI MALIGNANCY OBGYN [facility] V16.0 and FM HX OVARY [place], [place] [id number] MALIGNANCY V16.41 [facility] 103 Sep, ROUTINE ENGINE REPAIRER SERVICE EXAMINATION OBGYN [facility] V72.31 ; FAMILY HX-GI [place], [place] [id number] MALIGNANCY V16.0 and FM HX OVARY MALIGNANCY V16.41 [facility] 103 May, OBGYN [place], [place] [id number] [facility] 103 Jan, OBGYN [place], [place] [id number] [facility] 103 Jan, Menometrorrhagia 626.2 and OBGYN [facility] VULVAR LESION 624.9 [place], [place] [id number] [facility] 103 Jan, OBGYN [place], [place] [id number] [facility] 103 Oct, OBGYN [place], [place] [id number] [facility] 103 Oct, Menometrorrhagia 626.2 and OBGYN [facility] FAMILY HX-GI MALIGNANCY [place] [id number] V16.0 [facility] 103 Oct, Menometrorrhagia 626.2 [place]BG[place] [id number] [facility] 103 18 Oct, 2008 Menometrorrhagia 626.2 [place] [id number] [facility] 103 Oct, OBGYN [place], [place] [id number] [facility] 103 Sep, OBG[place], [place] [id number] [facility] 103 Jun, OBGYN [place], [place] [id number] [facility] 103 May, Menometrorrhagia 626.2 ; [facility] HX OVARY MALIGNANCY V16.41 [place], [place] [id number] ; FAMILY HX-GI MALIGNANCY V16.0 and Dysmenorrhea 625.3 [facility] 103 May, Ovarian cyst NOS 620.2 ; [facility] HX OVARY MALIGNANCY V16.41 [place], [place] [id number] and FAMILY HX-GI MALIGNANCY V16.0 [facility] 103 Apr, ROUTINE ENGINE REPAIRER SERVICE EXAMINATION [facility] V72.31 [place], [place] [id number] [facility] 103 Mar, Menometrorrhagia 626.2 [facility] End[facility] polyp 621.0 [place], [place] [id number] [facility] 103 Feb, Menometrorrhagia 626.2 ; [facility] Endometrial polyp 621.0 and [place], [place] [id number] Stenosis of cervix 622.4 [facility] 103 Feb, Menometrorrhagia 626.2 ; [facility] Endometrial polyp 621.0 and [place], [place] [id number] Stenosis of cervix 622.4 [facility] Jan, [place] [id number] [facility] 103 Jan, [place]BG[place] [id number] [facility] 103 December, OBG[place], [place] [id number] [facility] 103 Nov, [place]BG[place] [id number] [facility] 103 Nov, Menometrorrhagia 626.2 ; OBGYN [facility] Endometrial polyp 621.0 and [place], [place] [id number] Stenosis of cervix 622.4 [facility] 103 Nov, Menometrorrhagia 626.2 ; OBGYN [facility] Stenosis of cervix 622.4 [place], [place] [id number] and Endometrial polyp 621.0 [facility] 103 Oct, Menometrorrhagia 626.2 ; OBGYN [facility] Stenosis of cervix 622.4 [place], [place] [id number] and Endometrial polyp 621.0 [facility] 103 Oct, Menometrorrhagia 626.2 and OBGYN [facility] Stenosis of cervix 622.4 [place], [place] [id number] [facility] 103 Oct, Menometrorrhagia 626.2 [facility] End[facility]rial polyp 621.0 [place], [place] [id number] [facility] 103 Sep, [place]BG[place], [place] [id number] [facility] 103 Sep, Menometrorrhagia 626.2 [facility] Stenosis of cervix 622.4 [place] [id number] [facility] 103 Sep, Menometrorrhagia 626.2 [place]BG[place], [place] [id number] [facility] 103 Aug, Menometrorrhagia 626.2 [place]BGYN [place], [place] [id number] [facility] 103 Mar, OBG[place], [place] [id number] [facility] 103 Feb, OBGYN [place], [place] [address]666[address] [facility] 103 Jan, OBGYN [place], [place] [id number] [facility] 103 Jan, OBG[place], [place] [id number] [facility] 103 December, OBGYN [place], [place] [id number] [facility] 103 Nov, OBGYN [place], [place] [id number] [facility] 103 Nov, ROUTINE ENGINE REPAIRER SERVICE EXAMINATION OBGYN [facility] V72.31 ; FM HX OVARY [place], [place] [id number] MALIGNANCY V16.41 and FAMILY HX-GI MALIGNANCY V16.0 [facility] 103 Oct, [place]BG[place], [place] [id number] [facility] 103 Sep, [place]BG[place], [place] [id number] [facility] 103 Sep, OBGYN [place], [place] [id number] [facility] 103 Jun, FM HX OVARY MALIGNANCY OBGYN [facility] V16.41 and FAMILY HX-GI [place], [place] [id number] MALIGNANCY V16.0 [facility] 103 Jun, OBGYN [place], [place] [id number] [facility] 103 May, FAMILY HX-GI MALIGNANCY OBGYN [facility] V16.0 and FM HX OVARY [place], [place] [id number] MALIGNANCY V16.41 [facility] 103 May, COUNSELING NOS V65.40 O[place]YN [place], [place] [id number] [facility] 103 Sep, Well Adult exam V 70.0 ; OBGYN [facility] ROUTINE ENGINE REPAIRER SERVICE EXAMINATION [place], [place] [id number] V72.31 and Menorrhagia 626.2 IMMUNIZATIONS No Known Immunizations SOCIAL HISTORY Never Assessed REASON FOR REFERRAL FUNCTIONAL STATUS PLAN OF CARE Activity Details Follow Up cancel 07/08 CBE appt and schedule CBE with US 2-3 weeks later Reason: VITAL SIGNS Height 64 in 2019-05-20 Weight 174 lbs 2019-05-20 BMI 29.86 kg/m2 2019-05-20 Blood pressure systolic 122 mm Hg 2019-05-20 Blood pressure diastolic 60 mm Hg 2019-05-20 MEDICATIONS Medication Instructions Dosage Frequency Start Date End Date Duration Status ibuprofen 800 orally q8 hrs PRN 1 tab(s) Active mg PROCEDURES No Known procedures RESULTS No Results REASON FOR VISIT US f/u Insurance Providers [facility] Patient Patient Patient Patient Patient Subscriber Subscriber Subscriber Group Insurance Plan Plan Plan Plan ID Relationship Address Phone Name Date of ID Name Date of No Type Insurance Insurance Insurance Coverage to Subscriber Address Phone Name Dates Health Now [phone] Health Now [place] [id number] [facility] [address] [address] [employer] [phone] [employer] [place] [id number] [place] [phone] Health Now [phone] Health Now [place] [id number] [facility] [address] [address] [employer] 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 Increased colon cancer risk. Surgical History Surgical History Hysteroscopy/Site directed EMB 11/18/07 Surgical History HTA 02/17/08 Surgical History US-guided diagnostic hysteroscopy D&C. 05/13/18 Hospitalization History see above
--- OUTSIDE RECORDS SUMMARY | 2019-10-07 08:22 | XMS REPORT ---
:1970 Author Organization [facility] Address [address] [place] [address] Care Team Providers Name Role Phone Rola Calvo Unavailable Unavailable PROBLEMS Type Condition ICD9-CM [id number] Onset Condition SNOMED Code Code Code Dates Status Problem Dysmenorrhea, N94.6 Active 067156921 unspecified Problem Family history of Z80.0 Active 812251954 malignant neoplasm of digestive organs Problem Other specified N93.8 Active 993597277 abnormal uterine and vaginal bleeding Problem Other abnormal and R92.8 Active 072870602 inconclusive findings on diagnostic imaging of breast Problem Unspecified N83.201 Active 33502897698832273 ovarian cyst, right side Problem Family history of Z80.3 Active 852725127 malignant neoplasm of breast Problem 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 67803344 stenosis of cervix uteri Problem Leiomyoma of D25.9 Active 39938623 uterus, unspecified Problem Unspecified N83.202 Active [id number] ovarian cyst, left side Problem Family history of Z80.41 Active 308478128 malignant neoplasm of ovary Problem Excessive and N92.0 Active 069090047 frequent menstruation with regular cycle Problem Inconclusive R92.2 Active 18107218 mammogram Problem Excessive and N92.0 Active 350826288 frequent menstruation Problem 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 ALLERGIES No Information ENCOUNTERS Encounter Location Date Diagnosis [facility] 103 December, OBGYN [place] [id number] [facility] 103 December, OBGYN [place] [id number] [facility] 103 Aug, [place] [id number] [facility] 103 Aug, Family history of malignant [facility] neoplasm of breast Z80.3 [place] [id number] [facility] 103 Aug, Unspecified ovarian cyst, OBGYN [facility] left side N83.202 ; [place], [place] [id number] Leiomyoma of uterus, unspecified D25.9 and Family history of malignant neoplasm of breast Z80.3 [facility] 103 Aug, [facility] N83.202 and [place] [id number] Leiomyoma of uterus, unspecified D25.9 [facility] 103 May, [place] [id number] [facility] 103 May, [facility]specified [facility], [facility] N83.201 ; [place], [place] [id number] Unspecified ovarian cyst, left side N83.202 ; Excessive and frequent menstruation with regular cycle N92.0 and Leiomyoma of uterus, unspecified D25.9 [facility] 103 May, [facility]specified [facility] cyst, [facility] N83.201 ; [place], [place] [id number] Leiomyoma of uterus, unspecified D25.9 and Excessive and frequent menstruation with regular cycle N92.0 [facility] 103 December, [facility] ([facility] [place], [place] [id number] (routine) with abnormal findings Z01.411 ; Encounter [...] and Unspecified ovarian cyst, right side N83.201 [facility] 103 December, Family history of malignant [facility] neoplasm of ovary Z80.41 [place], [place] [id number] and Leiomyoma of uterus, unspecified D25.9 [facility] 103 Aug, OBGYN [place] [id number] [address] Jun, Excessive and frequent OBGYN [facility] [address] [place], menstruation with regular [place] [id number] cycle N92.0 ; Leiomyoma of uterus, unspecified D25.9 ; Family history of malignant neoplasm of breast Z80.3 ; Other abnormal and inconclusive findings on diagnostic imaging of breast R92.8 ; Genetic susceptibility to other malignant neoplasm Z15.09 ; Family history of malignant neoplasm of ovary Z80.41 and Family history of malignant neoplasm of digestive organs Z80.0 [facility] 103 Jun, Family history of malignant [facility] neoplasm of breast Z80.3 [place], [place] [id number] and Displacement of intrauterine contraceptive device, initial encounter T83.32XA [facility] [address] Apr, Excessive and frequent Medical Center [place], [place] [id number] menstruation with regular cycle N92.0 ; Dysmenorrhea, unspecified N94.6 and Stricture and stenosis of cervix uteri N88.2 [facility] 103 Apr, OBGYN [place] [id number] [facility] 103 Apr, Excessive and frequent [facility] menstruation with regular [place] [id number] cycle N92.0 ; Stricture and stenosis of cervix uteri N88.2 and Noninflammatory disorder of vagina, unspecified N89.9 [facility] 103 Mar, OBGYN [place], [place] [id number] [facility] 103 Mar, [place]BGYN [place], [place] [id number] [facility] 103 Mar, Excessive and frequent OBGYN [facility] menstruation with regular [place], [place] [id number] cycle N92.0 ; Other abnormal and inconclusive findings on diagnostic imaging of breast R92.8 ; Leiomyoma of uterus, unspecified D25.9 ; Genetic susceptibility to other malignant neoplasm Z15.09 ; Family history of malignant neoplasm of ovary Z80.41 ; Family history of malignant neoplasm of breast Z80.3 and Family history of malignant neoplasm of digestive organs Z80.0 [facility] 103 Feb, Excessive and frequent OBGYN [facility] menstruation with regular [place], [place] [id number] cycle N92.0 [facility] 103 Feb, Excessive and frequent OBGYN [facility] menstruation with regular [place], [place] [id number] cycle N92.0 [facility] 103 Feb, Excessive and frequent OBGYN [facility] menstruation with regular [place], [place] [id number] cycle N92.0 [facility] 103 Feb, Excessive and frequent OBGYN [facility] menstruation with regular [place], [place] [id number] cycle N92.0 ; Leiomyoma of uterus, unspecified D25.9 and Other specified abnormal uterine and vaginal bleeding N93.8 [facility] 103 Jan, OBGYN [place], [place] [id number] [facility] 103 Jan, [place]BG[place], [place] [id number] [facility] 103 Jan, Other abnormal and OBGYN [facility] inconclusive findings on [place], [place] [id number] diagnostic imaging of breast R92.8 [facility] 103 Jan, Excessive and frequent OBGYN [facility] menstruation N92.0 [place] [id number] [facility] 103 Jan, Excessive and frequent [facility] menstruation with regular [place], [place] [id number] cycle N92.0 ; Family history of malignant neoplasm of digestive organs Z80.0 ; Family history of malignant neoplasm of ovary Z80.41 ; Family history of malignant neoplasm of breast Z80.3 and Unspecified ovarian cyst, right side N83.201 [facility] Jan, Leiomyoma of uterus, [facility] unspecified D25.9 ; Other [place], [place] [id number] specified abnormal uterine and vaginal bleeding N93.8 ; Family history of malignant neoplasm of ovary Z80.41 and Excessive and frequent menstruation with regular cycle N92.0 [facility] 103 December, Inconclusive mammogram [facility] R92.2 [place], [place] [id number] [facility] 103 December, Encounter for gynecological [facility] examination (general) [place], [place] [id number] (routine) without abnormal findings Z01.419 ; Encounter [...] of breast Z80.3 and Dysmenorrhea, unspecified N94.6 [facility] 103 December, Family history of malignant [facility] neoplasm of ovary Z80.41 [place], [place] [id number] and Leiomyoma of uterus, unspecified D25.9 [facility] 103 Nov, [place], [place] [id number] [facility] 103 Jun, [place] [id number] [facility] 103 Jun, Family history of malignant [facility] neoplasm of ovary Z80.41 [place] [id number] and Leiomyoma of uterus, unspecified D25.9 [facility] 103 Mar, Family history of malignant [facility] neoplasm of ovary Z80.41 [place], [place] [id number] and Leiomyoma of uterus, unspecified D25.9 [facility] 103 Mar, Family history of malignant [facility] neoplasm of ovary Z80.41 ; [place], [place] [id number] Other specified abnormal uterine and vaginal bleeding N93.8 and Leiomyoma of uterus, unspecified D25.9 [facility] 103 Nov, Other abnormal and [facility] inconclusive findings on [place], [place] [id number] diagnostic imaging of breast R92.8 [facility] 103 13 Nov, 2016 OBGYN [place], [place] [id number] [facility] 103 Nov, Encounter for gynecological [facility] examination (general) [place], [place] [id number] (routine) without abnormal findings Z01.419 ; Encounter for screening mammogram for malignant neoplasm of breast Z12.31 ; Frequency of micturition R35.0 ; Family history of malignant neoplasm of digestive organs Z80.0 ; Family history of malignant neoplasm of ovary Z80.41 and Leiomyoma of uterus, unspecified D25.9 [facility] 103 Nov, Family history of malignant [facility] neoplasm of ovary Z80.41 [place], [place] [id number] [facility] 103 Nov, En[facility]ological [facility] examination (general) [place], [place] [id number] (routine) without abnormal findings Z01.419 ; Encounter for screening mammogram for malignant neoplasm of breast Z12.31 ; Family history of malignant neoplasm of digestive organs Z80.0 ; Family history of malignant neoplasm of ovary Z80.41 ; Dysmenorrhea, unspecified N94.6 and Other specified abnormal uterine and vaginal bleeding N93.8 [facility] 103 Nov, Family history of malignant [facility] neoplasm of ovary Z80.41 [place] [id number] [facility] 103 Oct, Encounter for screening [facility] mammogram for malignant [place], [place] [id number] neoplasm of breast Z12.31 [facility] 103 Apr, [place] [id number] [facility] 103 Jan, Ovarian cyst NOS 620.2 [place] [id number] [facility] 103 Jan, FM HX OVARY MALIGNANCY [facility] V16.41 and Ovarian cyst NOS [place], [place] [id number] 620.2 [facility] 103 December, FM HX OVARY MALIGNANCY [facility] V16.41 and Ovarian cyst NOS [place], [place] [id number] 620.2 [facility] 103 December, [place] [id number] [facility] 103 Nov, Menometrorrhagia 626.2 [place] [id number] [facility] 103 Nov, 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 [facility] V72.31 ; PAP SMEAR W/O WOOL HAT FINISHER [place], [place] [id number] EXAM V76.2 and Ovarian cyst NOS 620.2 [facility] 103 Nov, FM HX OVARY MALIGNANCY [facility] V16.41 and Ovarian cyst NOS [place], [place] [id number] 620.2 [facility] 103 Nov, [place] [id number] [facility] 103 Sep, Mammogram-Abnormal 793.80 [place] [id number] [facility] 103 May, Inconclusive mammogram OBGYN [facility] 793.82 [place], [place] [id number] [facility] 103 May, FM HX OVARY MALIGNANCY OBGYN [place] [address] [place] [id number] [facility] 103 May, FM HX OVARY MALIGNANCY OBGYN [place] [id number] [id number] [facility] 103 Apr, O[place] [id number] [facility] 103 Apr, OBG[place] [id number] [facility] 103 Nov, Breast Mass 611.72 OBGYN [place] [id number] [facility] 103 Nov, OBG[place], [place] [id number] [facility] 103 Oct, 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 [facility] V72.31 ; [place], [place] [id number] vulvovaginitis 112.1 ; Dysmenorrhea 625.3 ; FAMILY HX-GI MALIGNANCY V16.0 ; Ovarian cyst NOS 620.2 ; Breast Mass 611.72 ; PAP SMEAR W/O WOOL HAT FINISHER EXAM V76.2 ; FM HX OVARY MALIGNANCY V16.41 and VAGINAL DISCHARGE 623.5 [facility] 103 Oct, FM HX OVARY MALIGNANCY OBGYN [place] [id number] [id number] [facility] 103 Oct, OBGYN [place], [place] [id number] [facility] 103 Oct, OBGYN [place] [id number] [facility] 103 Oct, OBGYN [place] [id number] [facility] 103 Oct, Breast Mass 611.72 OBGYN [place] [id number] [facility] 103 Jun, OBG[place] [id number] [facility] 103 May, OBGYN [place], [place] [id number] [facility] 103 May, FM HX OVARY MALIGNANCY OBGYN [place] [address] [place] [id number] [facility] 103 May, Breast Mass 611.72 and FM OBGYN [facility] HX OVARY MALIGNANCY V16.[address] [place] [id number] [facility] 103 May, FM HX OVARY MALIGNANCY OBGYN [place] [address] [place] [id number] [facility] 103 Jan, OBGYN [place], [place] [id number] [facility] 103 Nov, O[place] [id number] [facility] 103 Nov, Ovarian cyst NOS 620.2 and OBGYN [facility] HX OVARY MALIGNANCY [place], [place] [id number] V16.41 [facility] 103 Nov, Ovarian cyst NOS 620.2 and OBGYN [facility] HX OVARY MALIGNANCY [place], [place] [id number] V16.41 [facility] 103 Oct, O[place], [place] [id number] [facility] 103 Oct, O[place] [id number] [facility] 103 Oct, OBGYN [place], [place] [id number] [facility] 103 Sep, O[place] [id number] [facility] 103 Sep, 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 OBGYN [facility] V72.31 ; FM HX OVARY [place], [place] [id number] MALIGNANCY V16.41 ; SCREEN MAMMOGRAM NEC V76.12 and Ovarian cyst NOS 620.2 [facility] 103 Sep, FM HX OVARY MALIGNANCY OBGYN [facility] V16.41 and Ovarian cyst NOS [place], [place] [id number] 620.2 [facility] 103 Mar, FM HX OVARY MALIGNANCY OBGYN [facility] V16.41 ; FAMILY HX-GI [place], [place] [id number] MALIGNANCY V16.0 and Dysmenorrhea 625.3 [facility] 103 Mar, FM HX OVARY MALIGNANCY OBGYN [facility] V16.41 [place], [place] [id number] [facility] 103 Sep, O[place] [id number] [facility] 103 Sep, 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 OBGYN [facility] V72.31 ; FM HX OVARY [place], [place] [id number] MALIGNANCY V16.41 ; Candidal vulvovaginitis 112.1 and Dysmenorrhea 625.3 [facility] 103 Sep, FM HX OVARY MALIGNANCY OBGYN [facility] V16.41 [place], [place] [id number] [facility] 103 Sep, 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 OBGYN [facility] V72.31 ; FM HX OVARY [place], [place] [id number] MALIGNANCY V16.41 and Menometrorrhagia 626.2 [facility] 103 Sep, FM HX OVARY MALIGNANCY OBGYN [facility] V16.41 and Menometrorrhagia [place], [place] [id number] 626.2 [facility] 103 December, FAMILY HX-GI MALIGNANCY OBGYN [facility] V16.0 ; FM HX OVARY [place], [place] [id number] MALIGNANCY V16.41 ; Dysmenorrhea 625.3 and Menometrorrhagia 626.2 [facility] 103 Oct, OBGYN [place] [id number] [facility] 103 Oct, FAMILY HX-GI MALIGNANCY OBGYN [facility] V16.0 and FM HX OVARY [place], [place] [id number] MALIGNANCY V16.41 [facility] 103 Oct, FM HX OVARY MALIGNANCY OBGYN [facility] V16.41 and Ovarian cyst NOS [place], [place] [id number] 620.2 [facility] 103 Sep, FAMILY HX-GI MALIGNANCY OBGYN [facility] V16.0 and FM HX OVARY [place], [place] [id number] MALIGNANCY V16.41 [facility] 103 Sep, 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 OBGYN [facility] V72.31 ; FAMILY HX-GI [place], [place] [id number] MALIGNANCY V16.0 and FM HX OVARY MALIGNANCY V16.41 [facility] 103 May, OBGYN [place], [place] [id number] [facility] 103 Jan, [place], [place] [id number] [facility] 103 Jan, Menometrorrhagia 626.2 and OBGYN [facility] VULVAR LESION 624.9 [place], [place] [id number] [facility] 103 Jan, [place], [place] [id number] [facility] 103 Oct, OBGYN [place], [place] [id number] [facility] 103 Oct, Menometrorrhagia 626.2 and OBGYN [facility] FAMILY HX-GI MALIGNANCY [place], [place] [id number] V16.0 [facility] 103 Oct, Menometrorrhagia 626.2 OBGYN [place] [id number] [facility] 103 Oct, Menometrorrhagia 626.2 O[place]YN [place] [id number] [facility] 103 Oct, OBGYN [place], [place] [id number] [facility] 103 Sep, OBGYN [place], [place] [id number] [facility] 103 Jun, OBGYN [place], [place] [id number] [facility] 103 May, Menometrorrhagia 626.2 ; [facility] HX OVARY MALIGNANCY V16.41 [place], [place] [id number] ; FAMILY HX-GI MALIGNANCY V16.0 and Dysmenorrhea 625.3 [facility] 103 May, Ovarian cyst NOS 620.2 ; [facility] HX OVARY MALIGNANCY V16.41 [place], [place] [id number] and FAMILY HX-GI MALIGNANCY V16.0 [facility] 103 Apr, 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 [facility] V72.31 [place], [place] [id number] [facility] 103 Mar, Menometrorrhagia 626.2 [facility] Endometrial polyp 621.0 [place] [id number] [facility] 103 Feb, Menometrorrhagia 626.2 ; [facility] Endometrial polyp 621.0 and [place], [place] [id number] Stenosis of cervix 622.4 [facility] 103 Feb, Menometrorrhagia 626.2 ; [facility] Endometrial polyp 621.0 and [place], [place] [id number] Stenosis of cervix 622.4 [facility] 103 Jan, OBGYN [place], [place] [id number] [facility] 103 Jan, OBG[place] [id number] [facility] 103 December, OBGYN [place] [id number] [facility] 103 Nov, OBG[place], [place] [id number] [facility] 103 Nov, Menometrorrhagia 626.2 ; [facility] Endometrial polyp 621.0 and [place], [place] [id number] Stenosis of cervix 622.4 [facility] 103 Nov, Menometrorrhagia 626.2 ; OBGYN [facility] Stenosis of cervix 622.4 [place], [place] [id number] and Endometrial polyp 621.0 [facility] 103 Oct, Menometrorrhagia 626.2 ; [facility] Stenosis of cervix 622.4 [place], [place] [id number] and Endometrial polyp 621.0 [facility] 103 Oct, Menometrorrhagia 626.2 [facility] Stenosis of cervix 622.4 [place], [place] [id number] [facility] 103 Oct, Menometrorrhagia 626.2 and OBGYN [facility] Endometrial polyp 621.0 [place], [place] [id number] [facility] 103 Sep, OBG[place], [place] [id number] [facility] 103 Sep, Menometrorrhagia 626.2 [facility] Stenosis of cervix 622.4 [place] [id number] [facility] 103 Sep, Menometrorrhagia 626.2 OBGYN [place] [id number] [facility] 103 Aug, Menometrorrhagia 626.2 [place]YN [place] [id number] [facility] 103 Mar, OBGYN [place], [place] [id number] [facility] 103 Feb, OBGYN [place], [place] [id number] [facility] 103 Jan, OBG[place] [id number] [facility] 103 Jan, [place], [place] [id number] [facility] 103 December, O[place] [id number] [facility] 103 Nov, OBGYN [place], [place] [id number] [facility] 103 Nov, 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 OBGYN [facility] V72.31 ; FM HX OVARY [place], [place] [id number] MALIGNANCY V16.41 and FAMILY HX-GI MALIGNANCY V16.0 [facility] 103 Oct, OBGYN [place] [id number] [facility] 103 Sep, OBG[place], [place] [id number] [facility] 103 Sep, OBGYN [place], [place] [id number] [facility] 103 Jun, FM HX OVARY MALIGNANCY OBGYN [facility] V16.41 and FAMILY HX-GI [place], [place] [id number] MALIGNANCY V16.0 [facility] 103 Jun, OBG[place] [id number] [facility] 103 May, FAMILY HX-GI MALIGNANCY OBGYN [facility] V16.0 and FM HX OVARY [place], [place] [id number] MALIGNANCY V16.41 [facility] 103 May, COUNSELING NOS V65.40 [place] [id number] [facility] 103 Sep, Well Adult exam V 70.0 ; OB[facility]azel [facility] 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 [place], [place] [id number] V72.31 and Menorrhagia 626.2 IMMUNIZATIONS No Known Immunizations SOCIAL HISTORY Never Assessed REASON FOR REFERRAL FUNCTIONAL STATUS PLAN OF CARE VITAL SIGNS MEDICATIONS Unknown Medications PROCEDURES No Known procedures RESULTS No Results REASON FOR VISIT Needs invoice Insurance Providers [facility] Member Patient Patient Patient Patient Patient Subscriber Subscriber Subscriber Group Insurance Plan Plan Plan Plan ID Relationship Address Phone Name Date of ID Name Date of No Type Insurance Insurance Insurance Coverage to Subscriber Address Phone Name Dates [employer] [phone] [employer] Jacqueline [id number] [place] [phone] Health Now [phone] Health Now Jacqueline [id number] [facility] [address] [address] Health Now [phone] Health Now [place]eline [id number] [facility] [address] [phone] [employer] 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 Increased colon cancer risk. Surgical History Surgical History Hysteroscopy/Site directed EMB 11/18/07 Surgical History HTA 02/17/08 Surgical History US-guided diagnostic hysteroscopy D&C. 05/13/18 Hospitalization History see above
[2019-10-07 08:31] VITALS: BP 123/70
--- NOTE | 2019-10-07 09:38 | UC ---
UC General HPI - HPI Summary HPI Summary: 49-year-old woman comes in with a chief complaint of bilateral flank pain and discolored urine for one month. One month ago patient had similar symptoms with dark-colored urine and was diagnosis urinary tract infection and treated for 7 days with an antibiotic. That treatment was done in [place] and we do not have access to the culture and the patient does not know the antibiotic she was on. Patient reports she had a fever one month ago. No fever since then. Overall patient feels like her symptoms have not improved very much. The gotten worse in the last day with increased bilateral low back pain in the urine being darker. She has been drinking plenty of water to try to alleviate symptoms but is not helping. Also took ibuprofen last night which did help the pain. No recent fevers or chills reports normal eating and drinking and bowel movements. Patient is on her period at this time. - History of Current Complaint Chief Complaint: UCGU Stated Complaint: UTI Time Seen by Provider: 10/07/19 09:20 Hx Last Menstrual Period: 10/03/19 Pain Intensity: 6 - Allergy/Home Medications Allergies/Adverse Reactions: Allergies Allergy/AdvReac Type Severity Reaction Status Date / Time Penicillins Allergy Hives Verified 07/31/18 07:24 Home Medications: Home Medications Fexofenadine (NF) [Maru 180 (NF)] 180 mg PO ONCE 07/31/18 [History Confirmed 07/31/18] Sulfamethox/Trimethoprim DS* [Bactrim DS 800/160 TAB*] 1 tab PO BID #20 tab [Rx] PMH/Surg Hx/FS Hx/Imm Hx Previously Healthy: Yes - Surgical History Surgical History: Yes Surgery Procedure, Year, and Place: ,breast biopsy clip - Family History Known Family History: Positive: None Negative: Cardiac Disease, Diabetes, Respiratory Disease Family History: no know family history of early onset cardio-vascular disorders - Social History Alcohol Use: Occasionally Alcohol Amount: 1 wine Substance Use Type: None Smoking Status (MU): Never Smoked Tobacco - Immunization History Most Recent Influenza Vaccination: Not the season Review of Systems All Other Systems Reviewed And Are Negative: Yes Constitutional: Positive: Other - SEE HPI Skin: Positive: Negative Eyes: Positive: Negative ENT: Positive: Negative Respiratory: Positive: Negative Cardiovascular: Positive: Negative Gastrointestinal: Positive: Other - SEE HPI Genitourinary: Positive: Other - SEE HPI Motor: Positive: Negative Neurovascular: Positive: Negative Musculoskeletal: Positive: Negative Neurological/Mental Status: Positive: Negative Psychological: Positive: Negative Is Patient Immunocompromised?: No Physical Exam Triage Information Reviewed: Yes Appearance: Well-Appearing, No Pain Distress, Well-Nourished Vital Signs: Initial Vital Signs Temp 98.6 F 10/07/19 08:27 Pulse 98 10/07/19 08:27 Resp 17 10/07/19 08:27 BP 123/70 10/07/19 08:27 Pulse Ox 99 10/07/19 08:27 Vital Signs Reviewed: Yes Eye Exam: Normal Eyes: Positive: Conjunctiva Clear Neck: Positive: Supple Respiratory: Positive: Lungs clear, Normal breath sounds, No respiratory distress Abdomen Description: Positive: Nontender, Soft, Other: - Abdomen is soft and nontender to palpation. When I percuss over the flanks patient reports that is where the pain is but that does not hurt. Bowel Sounds: Positive: Present Musculoskeletal: Positive: Strength Intact, ROM Intact Neurological: Positive: Alert Psychological: Positive: Age Appropriate Behavior Skin Exam: Normal Course/Dx - Course Course Of Treatment: I discussed the urinary results with the patient. There is no leukocytes but there are nitrites and blood. Patient is on her period now which may be the cause of the blood in the urine. Patient has bilateral flank pain without any fevers or change in bowels. Patient's not sure which antibiotic she was on we' ll treat with Bactrim DS by mouth twice a day for 7 days. CBC, CMP and lipase were drawn here in clinic as the patient has bilateral flank pain. We discussed getting imaging. Plan right now is to check lab work treat for urinary tract infection, urine sent for culture, and to follow-up with urology. With the patient having potentially reoccurring urinary tract infections she should follow up with urology. Also with continued urinary symptoms it's appropriate follow-up with urology. I discussed with the patient that if anything got worse with pain fevers chills she did not feel well she needs to go to the emergency department for further evaluation and care. - Diagnoses Provider Diagnosis: Flank pain Discharge ED - Sign-Out/Discharge Documenting (check all that apply): Patient Departure All imaging exams completed and their final reports reviewed: No Studies - Discharge Plan Condition: Stable Disposition: HOME Prescriptions: Sulfamethox/Trimethoprim DS* [Bactrim DS 800/160 TAB*] 1 tab PO BID #20 tab Patient Education Materials: Flank Pain (ED), Urinary Tract Infection in Women (ED) Referrals: Melanie Thompson MD [Primary Care Provider] - Wayne Ruiz MD [Medical Doctor] - Mick Ugalde MD [Medical Doctor] - Additional Instructions: FOLLOW UP WITH UROLOGY. GO TO THE EMERGENCY DEPARTMENT IF NOT IMPROVED OR WORSE; PAIN, FEVER, YOU FEEL ILL, CHANGE IN BOWELS OF URINARY SYMPTOMS OR ANY QUESTIONS OR CONCERNS. - Billing Disposition and Condition Condition: STABLE Disposition: Home
[2019-10-07 13:36] LABS: ABS Lymphocytes 1.2 10^3/ul (1.0-4.8); ABS Monocytes 0.5 10^3/ul (0-0.8); ABS Neutrophils 4.6 10^3/ul (1.5-7.7); Eosinophil % 0.5 %; Hematocrit 40 % (35-47); Hemoglobin 13.9 g/dL (12.0-16.0); Lymphocyte % 19.6 %; Mean Corpuscular HGB Conc 35 g/dL (31-36); Mean Corpuscular Hemoglobin 34 pg (27-31); Mean Corpuscular Volume 96 fL (80-97); Nucleated Red Blood Cells % 0.1; Platelet Count 249 10^3/uL (150-450); Red Blood Count 4.13 10^6 /uL (3.70-4.87); Red Cell Distribution Width 13 % (10-15); White Blood Count 6.3 10^3/uL (3.5-10.8)
[2019-10-07 13:38] LABS: Albumin 4.6 g/dL (3.2-5.2); Calcium 9.4 mg/dL (8.6-10.3); Potassium 4.2 mmol/L (3.5-5.0); Total Bilirubin 0.7 mg/dL (0.2-1.0)
[2019-10-07 13:44] LABS: Albumin/Globulin Ratio 2.2 (1-3); BUN/Creatinine Ratio 13.2 (8-20); EGFR African American 111.7 (>60); EGFR Non-African American 92.3 (>60); Globulin 2.1 g/dL (2-4); Total Protein 6.7 g/dL (6.4-8.9)
== END 2019-10-07 09:46 | disposition home or self-care (01) ==
LOC: UCEAST 08:16
DX: R10.9 Unspecified abdominal pain (principal); R82.998 Other abnormal findings in urine; Z88.0 Allergy status to penicillin
CPT/HCPCS: 36415; 80053; 81003; 83690; 85025; 87077; 87086; 87186; 99212; G0463